=== PATIENT | female | born 1940 | race Caucasian/White ===

== ENCOUNTER 2017-10-18 18:08 | Inpatient (IN) | payer BC, MEDICARE ==
[2017-10-18] MEDS ORDERED: IPRATROPIUM 0.5 MG/2.5 ML NEBU INHALATION STA (19:13)
[2017-10-18] MEDS ORDERED: ALBUTEROL NEBULIZED 2.5 MG/3 ML INHALATION STA (19:13)
--- NOTE | 2017-10-18 19:20 | ED ---
General Adult HPI - General Chief complaint: Shortness of Breath Stated complaint: SHERRI Time Seen by Provider: 10/18/17 18:59 Source: patient, family, EMS, RN notes reviewed Mode of arrival: EMS Limitations: no limitations - History of Present Illness Initial comments: 77-year-old female presenting for one-week history generalized weakness. Patient is accompanied by her family members who states she has been somewhat confused and lethargic over the past week. She has not left her chair for about 1 week. Patient has past medical history of emphysema and hypertension. She also complains of some increasing dyspnea over the past week and mild cough. Denies chest pain. Denies fever or chills. Denies abdominal pain. Patient has no pain complaints. Denies headache. She has had increased swelling in her bilateral lower extremities for several months. - Related Data Home Medications Medication Instructions Recorded Confirmed Ergocalciferol (Vitamin D2) 50,000 unit PO Q7D 10/18/17 10/18/17 [Vitamin D2] Furosemide [Lasix] 40 mg PO DAILY 10/18/17 10/18/17 Metoprolol Succinate (ER) [Toprol 50 mg PO DAILY 10/18/17 10/18/17 Xl] Potassium Citrate [Potassium 10 meq PO DAILY 10/18/17 10/18/17 Citrate ER] Allergies Allergy/AdvReac Type Severity Reaction Status Date / Time amlodipine AdvReac Swelling Verified 10/18/17 19:12 acidic foods Allergy Anaphylaxis Uncoded 09/16/16 00:06 potato Allergy Anaphylaxis Uncoded 09/16/16 00:06 [place] Allergy Anaphylaxis Uncoded 09/16/16 11:23 Review of Systems ROS Statement: Those systems with pertinent positive or pertinent negative responses have been documented in the HPI. ROS Other: All systems not noted in ROS Statement are negative. Past Medical History Past Medical History: COPD, Hypertension, Pneumonia History of Any Multi-Drug Resistant Organisms: None Reported Past Surgical History: Joint Replacement, Orthopedic Surgery, Tonsillectomy Additional Past Surgical History / Comment(s): Bilateral hip surgeries, deviated septum. Past Psychological History: No Psychological Hx Reported Smoking Status: Never smoker Past Alcohol Use History: None Reported Past Drug Use History: None Reported - Past Family History Father Family Medical History: Cancer Mother Family Medical History: Congestive Heart Failure (CHF) General Exam Limitations: no limitations General appearance: alert, in no apparent distress Head exam: Present: atraumatic, normocephalic Eye exam: Present: normal appearance, PERRL ENT exam: Present: normal exam Neck exam: Present: normal inspection. Absent: tenderness, meningismus Respiratory exam: Present: decreased breath sounds, prolonged expiratory Cardiovascular Exam: Present: regular rate, normal rhythm GI/Abdominal exam: Present: soft. Absent: distended, tenderness Extremities exam: Present: pedal edema, calf tenderness, other (Bilateral significant edema with chronic venous stasis and multiple weeping wounds.) Neurological exam: Present: alert, oriented X3, CN II-XII intact. Absent: motor sensory deficit Psychiatric exam: Present: normal affect, normal mood Skin exam: Present: warm, dry, intact. Absent: cyanosis, diaphoretic Course Vital Signs 10/18/17 10/18/17 10/18/17 18:15 20:02 21:05 Temperature 98.5 F Pulse Rate 90 86 89 Respiratory 20 18 20 Rate Blood Pressure 199/109 195/99 185/110 O2 Sat by Pulse 90 L 96 Oximetry 10/18/17 21:45 Temperature Pulse Rate 90 Respiratory 16 Rate Blood Pressure 176/107 O2 Sat by Pulse 96 Oximetry EKG Findings - EKG Comments: EKG Findings:: EKG shows normal sinus rhythm, left atrial enlargement, right axis deviation ventricular rate 88, CA 188, QRS duration 84, QTC 447 Medical Decision Making - Medical Decision Making 69-year-old female presenting with confusion, shortness of breath, and worsening bilateral lower extremity swelling. On examination patient has significant lower extremity edema, she has decreased air entry bilaterally on pulmonary auscultation. Patient is hypoxic on room air requiring supplemental oxygenation. Chest x-ray is obtained, does show pulmonary vascular congestion and cardiomegaly consistent with congestive heart failure. Patient was initially somewhat confused, this improved with oxygenation, she refuses her head CT for further evaluation of confusion. Laboratory studies reveal normal white blood cell count, stable hemoglobin, creatinine 1.1, BUN elevated at 3000 470, troponin negative. Patient is given IV diuretics in the emergency department. She refuses aspirin. She will be admitted for further IV diuresis. Diagnosis: Congestive heart failure exacerbation with hypoxia - Lab Data Result diagrams: 10/18/17 19:30 10/18/17 19:30 Lab Results 12/31/17 12/31/17 12/31/17 Range/Units 19:30 19:30 19:30 WBC 8.4 (3.8-10.6) k/uL RBC 5.74 H (3.80-5.40) m/uL Hgb 14.2 (11.4-16.0) gm/dL Hct 51.8 H (34.0-46.0) % MCV 90.3 (80.0-100.0) fL MCH 24.8 L (25.0-35.0) pg MCHC 27.5 L (31.0-37.0) g/dL RDW 18.2 H (11.5-15.5) % Plt Count 196 (150-450) k/uL Neutrophils % 75 % Lymphocytes % 14 % Monocytes % 6 % Eosinophils % 2 % Basophils % 0 % Neutrophils # 6.3 (1.3-7.7) k/uL Lymphocytes # 1.2 (1.0-4.8) k/uL Monocytes # 0.5 (0-1.0) k/uL Eosinophils # 0.2 (0-0.7) k/uL Basophils # 0.0 (0-0.2) k/uL Hypochromasia Marked Anisocytosis Slight PT 10.7 (9.0-12.0) sec INR 1.1 (<1.2) APTT 25.0 (22.0-30.0) sec VBG pH (7.31-7.41) VBG pCO2 (37-51) mmHg VBG HCO3 (24-28) mmol/L Sodium 141 (137-145) mmol/L Potassium 5.1 (3.5-5.1) mmol/L Chloride 99 (98-107) mmol/L Carbon Dioxide 35 H (22-30) mmol/L Anion Gap 7 mmol/L BUN 41 H (7-17) mg/dL Creatinine 1.10 H (0.52-1.04) mg/dL Est GFR (MDRD) Af Amer 58 (>60 ml/min/1.73 sqM) Est GFR (MDRD) Non-Af 48 (>60 ml/min/1.73 sqM) Glucose 95 (74-99) mg/dL Plasma Lactic Acid [place] (0.7-2.0) mmol/L Calcium 9.6 (8.4-10.2) mg/dL Magnesium 2.2 (1.6-2.3) mg/dL Total Bilirubin 0.5 (0.2-1.3) mg/dL AST 30 (14-36) U/L ALT 45 (9-52) U/L Alkaline Phosphatase 102 (38-126) U/L Total Creatine Kinase (30-135) U/L CK-MB (CK-2) (0.0-2.4) ng/mL CK-MB (CK-2) Rel Index Troponin I (0.000-0.034) ng/mL NT-Pro-B Natriuret Pep pg/mL Total Protein 7.3 (6.3-8.2) g/dL Albumin 3.3 L (3.5-5.0) g/dL Urine Color Urine Appearance (Clear) Urine pH (5.0-8.0) Ur Specific [place] (1.001-1.035) Urine Protein (Negative) Urine Glucose (UA) (Negative) Urine Ketones (Negative) Urine Blood (Negative) Urine Nitrite (Negative) Urine Bilirubin (Negative) Urine Urobilinogen (<2.0) mg/dL Ur Leukocyte Esterase (Negative) Urine RBC (0-5) /hpf Urine WBC (0-5) /hpf Ur Squamous Epith Cells (0-4) /hpf Amorphous Sediment (None) /hpf Urine Bacteria (None) /hpf Hyaline Casts (0-2) /lpf Urine Mucus (None) /hpf 10/18/17 10/18/17 10/18/17 Range/Units 19:30 19:30 19:30 WBC (3.8-10.6) k/uL RBC (3.80-5.40) m/uL Hgb (11.4-16.0) gm/dL Hct (34.0-46.0) % MCV (80.0-100.0) fL MCH (25.0-35.0) pg MCHC (31.0-37.0) g/dL RDW (11.5-15.5) % Plt Count (150-450) k/uL Neutrophils % % Lymphocytes % % Monocytes % % Eosinophils % % Basophils % % Neutrophils # (1.3-7.7) k/uL Lymphocytes # (1.0-4.8) k/uL Monocytes # (0-1.0) k/uL Eosinophils # (0-0.7) k/uL Basophils # (0-0.2) k/uL Hypochromasia Anisocytosis PT (9.0-12.0) sec INR (<1.2) APTT (22.0-30.0) sec VBG pH (7.31-7.41) VBG pCO2 (37-51) mmHg VBG HCO3 (24-28) mmol/L Sodium (137-145) mmol/L Potassium (3.5-5.1) mmol/L Chloride (98-107) mmol/L Carbon Dioxide (22-30) mmol/L Anion Gap mmol/L BUN (7-17) mg/dL Creatinine (0.52-1.04) mg/dL Est GFR (MDRD) Af Amer (>60 ml/min/1.73 sqM) Est GFR (MDRD) Non-Af (>60 ml/min/1.73 sqM) Glucose (74-99) mg/dL Plasma Lactic Acid [place] 1.3 (0.7-2.0) mmol/L Calcium (8.4-10.2) mg/dL Magnesium (1.6-2.3) mg/dL Total Bilirubin (0.2-1.3) mg/dL AST (14-36) U/L ALT (9-52) U/L Alkaline Phosphatase (38-126) U/L Total Creatine Kinase 29 L (30-135) U/L CK-MB (CK-2) 1.4 (0.0-2.4) ng/mL CK-MB (CK-2) Rel Index 4.8 Troponin I <0.012 (0.000-0.034) ng/mL NT-Pro-B Natriuret Pep 3470 pg/mL Total Protein (6.3-8.2) g/dL Albumin (3.5-5.0) g/dL Urine Color Urine Appearance (Clear) Urine pH (5.0-8.0) Ur Specific [place] (1.001-1.035) Urine Protein (Negative) Urine Glucose (UA) (Negative) Urine Ketones (Negative) Urine Blood (Negative) Urine Nitrite (Negative) Urine Bilirubin (Negative) Urine Urobilinogen (<2.0) mg/dL Ur Leukocyte Esterase (Negative) Urine RBC (0-5) /hpf Urine WBC (0-5) /hpf Ur Squamous Epith Cells (0-4) /hpf Amorphous Sediment (None) /hpf Urine Bacteria (None) /hpf Hyaline Casts (0-2) /lpf Urine Mucus (None) /hpf 10/18/17 10/18/17 Range/Units 19:30 20:39 WBC (3.8-10.6) k/uL RBC (3.80-5.40) m/uL Hgb (11.4-16.0) gm/dL Hct (34.0-46.0) % MCV (80.0-100.0) fL MCH (25.0-35.0) pg MCHC (31.0-37.0) g/dL RDW (11.5-15.5) % Plt Count (150-450) k/uL Neutrophils % % Lymphocytes % % Monocytes % % Eosinophils % % Basophils % % Neutrophils # (1.3-7.7) k/uL Lymphocytes # (1.0-4.8) k/uL Monocytes # (0-1.0) k/uL Eosinophils # (0-0.7) k/uL Basophils # (0-0.2) k/uL Hypochromasia Anisocytosis PT (9.0-12.0) sec INR (<1.2) APTT (22.0-30.0) sec VBG pH 7.40 (7.31-7.41) VBG pCO2 50 (37-51) mmHg VBG HCO3 30 H (24-28) mmol/L Sodium (137-145) mmol/L Potassium (3.5-5.1) mmol/L Chloride (98-107) mmol/L Carbon Dioxide (22-30) mmol/L Anion Gap mmol/L BUN (7-17) mg/dL Creatinine (0.52-1.04) mg/dL Est GFR (MDRD) Af Amer (>60 ml/min/1.73 sqM) Est GFR (MDRD) Non-Af (>60 ml/min/1.73 sqM) Glucose (74-99) mg/dL Plasma Lactic Acid [place] (0.7-2.0) mmol/L Calcium (8.4-10.2) mg/dL Magnesium (1.6-2.3) mg/dL Total Bilirubin (0.2-1.3) mg/dL AST (14-36) U/L ALT (9-52) U/L Alkaline Phosphatase (38-126) U/L Total Creatine Kinase (30-135) U/L CK-MB (CK-2) (0.0-2.4) ng/mL CK-MB (CK-2) Rel Index Troponin I (0.000-0.034) ng/mL NT-Pro-B Natriuret Pep pg/mL Total Protein (6.3-8.2) g/dL Albumin (3.5-5.0) g/dL Urine Color Yellow Urine Appearance Cloudy H (Clear) Urine pH 5.0 (5.0-8.0) Ur Specific [place] 1.012 (1.001-1.035) Urine Protein 1+ H (Negative) Urine Glucose (UA) Negative (Negative) Urine Ketones Negative (Negative) Urine Blood Negative (Negative) Urine Nitrite Negative (Negative) Urine Bilirubin Negative (Negative) Urine Urobilinogen <2.0 (<2.0) mg/dL Ur Leukocyte Esterase Small H (Negative) Urine RBC 1 (0-5) /hpf Urine WBC 6 H (0-5) /hpf Ur Squamous Epith Cells 5 H (0-4) /hpf Amorphous Sediment Rare H (None) /hpf Urine Bacteria Many H (None) /hpf Hyaline Casts 21 H (0-2) /lpf Urine Mucus Rare H (None) /hpf Disposition Clinical Impression: Congestive heart failure Disposition: ADMITTED IP TO THIS HOSP Condition: Stable Referrals: Brant Vanessa MD [Primary Care Provider] - 1-2 days Decision to Admit Reason: Admit from EC Decision Date: 10/18/17 Decision Time: 21:20
[2017-10-18 19:57] LABS: VBG PH 7.4 (7.31-7.41)
[2017-10-18 20:03] LABS: Anisocytosis Slight; Basophils % (A) 0 %; Eosinophils # (A) 0.2 k/uL (0-0.7); Eosinophils % (A) 2 %; HCT 51.8 % (34.0-46.0); HGB 14.2 gm/dL (11.4-16.0); Hypochromasia Marked; Lymphocytes # (A) 1.2 k/uL (1.0-4.8); Lymphocytes % (A) 14 %; MCH 24.8 pg (25.0-35.0); MCHC 27.5 g/dL (31.0-37.0); MCV 90.3 fL (80.0-100.0); Mean Platelet Volume 8.2; Monocytes # (A) 0.5 k/uL (0-1.0); Monocytes % (A) 6 %; Neutrophils # (A) 6.3 k/uL (1.3-7.7); Neutrophils % (A) 75 %; Platelet Count 196 k/uL (150-450); RBC 5.74 m/uL (3.80-5.40); RDW 18.2 % (11.5-15.5); WBC 8.4 k/uL (3.8-10.6)
[2017-10-18 20:07] LABS: INR 1.1 (<1.2); Prothrombin Time 10.7 sec (9.0-12.0)
[2017-10-18] MEDS ORDERED: HYDROcodone/APAP 5-325MG 1 EACH TAB PO STA (20:08)
[2017-10-18] MEDS ORDERED: FUROSEMIDE 10 MG/ML 2 ML VIAL IV STA ×2 (20:08→22:10)
[2017-10-18 20:12] LABS: Albumin 3.3 g/dL (3.5-5.0); Calcium 9.6 mg/dL (8.4-10.2); Magnesium 2.2 mg/dL (1.6-2.3); Potassium 5.1 mmol/L (3.5-5.1); Total Bilirubin 0.5 mg/dL (0.2-1.3); Total Protein 7.3 g/dL (6.3-8.2)
[2017-10-18] MEDS: FUROSEMIDE 10 MG/ML 4 ML VIAL IV STA ×2 (20:14→22:18)
[2017-10-18 20:15] LABS: Creatine Kinase 29 U/L (30-135)
[2017-10-18 20:29] LABS: Creatine Kinase MB 1.4 ng/mL (0.0-2.4); Troponin I <0.012 ng/mL (0.000-0.034)
[2017-10-18 20:57] LABS: Amorphous Sediment,Urine Rare /hpf; Appearance,Urine Cloudy (Clear); Bacteria,Urine Many /hpf; Bilirubin,Urine Negative (Negative); Blood,Urine Negative (Negative); Color,Urine Yellow; Glucose,Urine (UA) Negative (Negative); Hyaline Casts,Urine 21 /lpf (0-2); Ketones,Urine Negative (Negative); Leukocyte Esterase,Urine Small (Negative); Mucus,Urine Rare /hpf; Nitrite,Urine Negative (Negative); Protein,Urine 1+ (Negative); RBC,Urine 1 /hpf (0-5); Specific Gravity,Urine 1.012 (1.001-1.035); Squamous Epithelial Cell,Urine 5 /hpf (0-4); Urobilinogen,Urine <2.0 mg/dL (<2.0); WBC,Urine 6 /hpf (0-5)
--- NOTE | 2017-10-18 21:27 | XR ---
EXAMINATION TYPE: XR chest 2V DATE OF EXAM: 10/18/2017 COMPARISON: 09/15/2016 HISTORY: Difficulty breathing TECHNIQUE: Frontal and lateral views of the chest are obtained. FINDINGS: Heart is enlarged. There is coarsening of interstitial markings. There is mild pulmonary c ongestion. I see no pulmonary consolidation. Thoracic aorta is atheromatous. IMPRESSION: Cardiomegaly and mild pulmonary congestion. There is probably some pulmonary fibrosis. H eart appears increased compared to old exam.
[2017-10-18] MEDS: ASPIRIN 325 MG TAB PO STA ×2 (21:47)
[2017-10-18] MEDS ORDERED: ONDANSETRON 4 MG/2 ML VIAL IVP PRN (21:53)
[2017-10-18] MEDS ORDERED: NALOXONE 0.4 MG/ML 1 ML VIAL IV PRN (21:53)
[2017-10-18] MEDS ORDERED: HYDROcodone/APAP 5-325MG 1 EACH TAB PO PRN (21:53)
[2017-10-18] MEDS ORDERED: ACETAMINOPHEN TAB 325 MG TAB PO PRN (21:53)
[2017-10-18] MEDS ORDERED: NITROGLYCERIN SL TABS 0.4 MG TAB SUBLINGUAL STA (22:10)
[2017-10-19 01:50] LABS: Creatine Kinase MB 1.9 ng/mL (0.0-2.4)
[2017-10-19 02:07] LABS: Troponin I 0.022 ng/mL (0.000-0.034)
[2017-10-19] MEDS: FUROSEMIDE 10 MG/ML 4 ML VIAL IV SCH ×2 (06:20→17:40)
[2017-10-19 07:31] LABS: Anisocytosis Slight; Basophils % (A) 0 %; Eosinophils # (A) 0.1 k/uL (0-0.7); Eosinophils % (A) 1 %; HCT 48.5 % (34.0-46.0); HGB 13.7 gm/dL (11.4-16.0); Hypochromasia Marked; Lymphocytes % (A) 12 %; MCH 25.3 pg (25.0-35.0); MCHC 28.2 g/dL (31.0-37.0); MCV 89.5 fL (80.0-100.0); Mean Platelet Volume 8.1; Monocytes # (A) 0.7 k/uL (0-1.0); Monocytes % (A) 8 %; Neutrophils # (A) 6.8 k/uL (1.3-7.7); Neutrophils % (A) 76 %; Platelet Count 197 k/uL (150-450); RBC 5.42 m/uL (3.80-5.40); RDW 16.2 % (11.5-15.5); WBC 8.9 k/uL (3.8-10.6)
[2017-10-19 08:00] LABS: ALT 43 U/L (9-52); AST 26 U/L (14-36); Albumin 2.9 g/dL (3.5-5.0); Alkaline Phosphatase 79 U/L (38-126); Anion Gap 3 mmol/L; Blood Urea Nitrogen 37 mg/dL (7-17); Calcium 9.6 mg/dL (8.4-10.2); Carbon Dioxide 35 mmol/L (22-30); Chloride 101 mmol/L (98-107); Glucose 101 mg/dL (74-99); Magnesium 1.9 mg/dL (1.6-2.3); Potassium 4.8 mmol/L (3.5-5.1); Sodium 139 mmol/L (137-145); Total Bilirubin 0.9 mg/dL (0.2-1.3); Total Protein 6.7 g/dL (6.3-8.2)
[2017-10-19 08:06] LABS: Creatine Kinase MB 1.8 ng/mL (0.0-2.4); Troponin I 0.013 ng/mL (0.000-0.034)
[2017-10-19] MEDS: METOPROLOL SUCCINATE (ER) 50 MG TAB.ER.24H PO SCH (09:52)
[2017-10-19] MEDS: ceFAZolin IN SWFI 2 GM/20 ML SYRINGE IVP SCH (15:44)
[2017-10-19] MEDS ORDERED: IPRATROPIUM-ALBUTEROL 3 ML NEB INHALATION PRN (18:33)
[2017-10-19] MEDS: HEPARIN SODIUM,PORCINE 5,000 UNIT/ML 1 ML VIAL SQ SCH (22:10)
[2017-10-20] MEDS: ceFAZolin IN SWFI 2 GM/20 ML SYRINGE IVP SCH ×4 (00:19→23:53)
[2017-10-20] MEDS: FUROSEMIDE 10 MG/ML 4 ML VIAL IV SCH ×2 (05:58→17:18)
[2017-10-20 06:32] LABS: Anisocytosis Slight; Basophils % (A) 0 %; Eosinophils # (A) 0.1 k/uL (0-0.7); Eosinophils % (A) 1 %; HCT 46.8 % (34.0-46.0); HGB 13.5 gm/dL (11.4-16.0); Hypochromasia Marked; Lymphocytes # (A) 1.2 k/uL (1.0-4.8); Lymphocytes % (A) 15 %; MCHC 28.9 g/dL (31.0-37.0); MCV 86.3 fL (80.0-100.0); Mean Platelet Volume 8.1; Monocytes # (A) 0.6 k/uL (0-1.0); Monocytes % (A) 8 %; Neutrophils # (A) 5.5 k/uL (1.3-7.7); Neutrophils % (A) 72 %; Platelet Count 200 k/uL (150-450); RBC 5.42 m/uL (3.80-5.40); RDW 17.6 % (11.5-15.5); WBC 7.6 k/uL (3.8-10.6)
[2017-10-20 06:48] LABS: Calcium 9.2 mg/dL (8.4-10.2); Potassium 4.5 mmol/L (3.5-5.1)
[2017-10-20] MEDS: POTASSIUM CITRATE 10 MEQ TABLET.ER PO SCH (08:29)
[2017-10-20] MEDS: METOPROLOL SUCCINATE (ER) 50 MG TAB.ER.24H PO SCH (08:29)
[2017-10-20] MEDS: HEPARIN SODIUM,PORCINE 5,000 UNIT/ML 1 ML VIAL SQ SCH ×2 (08:31→20:42)
--- NOTE | 2017-10-20 09:36 | HP ---
HISTORY AND PHYSICAL DATE OF SERVICE: 10/19/2017 CHIEF COMPLAINTS: Shortness of breath and weakness. HISTORY OF PRESENT ILLNESS: This 77-year-old woman with past medical history of COPD, hypertension, history pneumonia, history of DJD being followed by Dr. Vanessa in the outpatient setting, was complaining of shortness of breath. The patient was previously admitted with dehydration, renal failure, multiple medical issues, but currently the patient has generalized weakness and tiredness. The patient also short of breath. The patient apparently has not left the chair for about 1 week and the patient came to [facility] and admitted for further evaluation and treatment. Apparently the adult protective service also has been informed at this time because of the patient's surroundings and state of condition. There is no history of any fever, rigors. No history of headache, loss of consciousness, seizures. Patient mildly confused. PAST MEDICAL HISTORY: COPD, hypertension, degenerative joint disease. MEDICATIONS: Prior to admission include home medications are: 1. KCl 10 mg p.o. daily. 2. Toprol-XL 50 mg. 3. Lasix 40 mg daily. 4. Vitamin D2 50,000 Thursday. ALLERGIES: NORVASC, ACID FOODS, POTATO, TUR[place]. FAMILY HISTORY: History of cancer in the family. SOCIAL HISTORY: No history of smoking. No history of alcohol intake. REVIEW OF SYSTEMS: ENT: Diminished hearing or vision. CARDIOVASCULAR: As mentioned earlier. RESPIRATORY: As mentioned earlier. GI: No nausea. : No dysuria. NERVOUS SYSTEM: As mentioned earlier. ALLERGY/IMMUNOLOGY: As mentioned earlier. MUSCULOSKELETAL: As mentioned earlier. HEMATOLOGY: No history of anemia. ENDOCRINE: No history of diabetes or hypothyroidism. CONSTITUTIONAL: As mentioned earlier. DERMATOLOGY: Negative. RHEUMATOLOGY: Negative. PSYCHIATRY: As mentioned earlier. PHYSICAL EXAMINATION: Alert and oriented. Pulse 92, blood pressure 140/79, respiration 18, temperature 97.7, pulse ox 90% on 3 L. LEGS: Bilateral leg cellulitis present. Otherwise moves all four limbs. SKIN: No ulcer, rash, bleeding. LYMPHATICS: No lymph nodes palpable in the neck, axillae or groin. JOINTS: No active deforming arthropathy. LABS: At this time shows WBC 8.2, hemoglobin 15.2, creatinine 1.10. UA is cloudy. ASSESSMENT: 1. Acute bilateral cellulitis with sepsis, possibly. 2. Increased creatinine with chronic kidney disease. 3. History of chronic obstructive pulmonary disease. 4. Hypertension. 5. History pneumonia. 6. History of degenerative joint disease. 7. History of bilateral hip replacement. 8. History of renal failure. 9. NO CODE. RECOMMENDATIONS AND DISCUSSION: This 77-year-old woman who presented with multiple complex medical issues, will monitor the patient closely. Continue the current management and will initiate broad-spectrum IV antibiotics. I will recommend local dressing and as well as cultures also. Otherwise I would also recommend disease case manager rn and social work lecturer to evaluate the home situation. Resume the home medications. Guarded prognosis. Further recommendations to follow. Copy of dictation forwarded to Dr. Vanessa who is the primary physician. MMODL / IJN: [id number] /
--- NOTE | 2017-10-20 09:52 | P.CRDCN ---
History of Present Illness Consult date: 10/20/17 Requesting physician: Majninder Dc Consult reason: congestive heart failure Chief complaint: Weakness and tiredness History of present illness: Is a 77-year-old female with history of hypertension, COPD, recurrent pneumonia, no diabetes, no hyperlipidemia, nonsmoker. Patient presents to the hospital with symptoms of progressive weakness and tiredness, she states that he felt so tired she could not do anything at all. He does state that she has felt a little more short of breath than usual, she denies any chest discomfort or palpitations. Patient apparently lives alone, she has a neighbor that stops and once in a while to help her. EKG on arrival here shows a normal sinus rhythm with right axis deviation. Chest x-ray shows cardiomegaly and mild pulmonary congestion. Report shows probable pulmonary fibrosis. The pressure on arrival here 199/109, heart rate 90, temperature 98.5, 90% on room air. Blood pressure this morning 118/60 with a heart rate in the 90s, 90% on 3 L of oxygen. Laboratory data was reviewed, hemoglobin 13.5, platelet count 200. BNP level 3470. Sodium 140, potassium 4.5, BUN 37, creatinine 1.1. Troponin 0.012, 0.022, 0.013. At the time of my examination this morning, patient complains of feeling extremely tired. She is quite determined to be discharged home. Past Medical History Past Medical History: COPD, Hypertension, Pneumonia History of Any Multi-Drug Resistant Organisms: None Reported Past Surgical History: Joint Replacement, Orthopedic Surgery, Tonsillectomy Additional Past Surgical History / Comment(s): Bilateral hip surgeries, deviated septum. Past Anesthesia/Blood Transfusion Reactions: No Reported Reaction Past Psychological History: No Psychological Hx Reported Smoking Status: Never smoker Past Alcohol Use History: None Reported Past Drug Use History: None Reported - Past Family History Father Family Medical History: Cancer Mother History Unknown: Yes Family Medical History: Congestive Heart Failure (CHF) Medications and Allergies Home Medications Medication Instructions Recorded Confirmed Type Ergocalciferol (Vitamin D2) 50,000 unit PO Q7D 10/18/17 10/18/17 History [Vitamin D2] Furosemide [Lasix] 40 mg PO DAILY 10/18/17 10/18/17 History Metoprolol Succinate (ER) [Toprol 50 mg PO DAILY 10/18/17 10/18/17 History Xl] Potassium Citrate [Potassium 10 meq PO DAILY 10/18/17 10/18/17 History Citrate ER] Allergies Allergy/AdvReac Type Severity Reaction Status Date / Time amlodipine AdvReac Swelling Verified 10/18/17 19:12 acidic foods Allergy Anaphylaxis Uncoded 09/16/16 00:06 [place] Allergy Anaphylaxis Uncoded 09/16/16 00:06 [place] Allergy Anaphylaxis Uncoded 09/16/16 11:23 Physical Exam Vitals: Vital Signs Temp Pulse Resp BP Pulse Ox 10/20/17 08:31 97.1 F L 92 20 117/69 90 L 10/20/17 03:30 97.4 F L 90 20 126/72 96 10/20/17 00:10 97.3 F L 95 22 102/63 92 L 10/19/17 20:00 97.3 F L 91 18 118/78 95 10/19/17 18:58 95 10/19/17 15:50 97.7 F 92 18 140/79 90 L 10/19/17 11:18 97.3 F L 81 18 121/88 90 L Intake and Output 10/19/17 10/20/17 10/20/17 22:59 06:59 14:59 Intake Total 230 100 240 Balance 230 100 240 Intake: Oral 230 100 240 Other: Voiding Method Diaper Diaper Diaper # Voids 1 Weight 117.5 kg PHYSICAL EXAMINATION: 77-year-old female, unkempt. HEENT: Head is atraumatic, normocephalic. Pupils equal, round. Neck is supple. There is elevated jugular venous pressure. HEART EXAMINATION: Heart S1, S2 normal. No murmur or gallop heard. CHEST EXAMINATION: Lungs reveal diminished air entry bilaterally with scattered wheezing throughout. ABDOMEN: Soft, obese, nontender. Bowel sounds are heard. No organomegaly noted. EXTREMITIES:[ 1+ peripheral pulses with 1+ evidence of peripheral edema , evidence of bilateral cellulitis. NEUROLOGIC patient is awake, alert and oriented -3. . Results 10/20/17 05:59 10/20/17 05:59 CBC 10/20/17 Range/Units 05:59 WBC 7.6 (3.8-10.6) k/uL RBC 5.42 H (3.80-5.40) m/uL Hgb 13.5 (11.4-16.0) gm/dL Hct 46.8 H (34.0-46.0) % Plt Count 200 (150-450) k/uL Comprehensive Metabolic Panel 10/20/17 Range/Units 05:59 Sodium 140 (137-145) mmol/L Potassium 4.5 (3.5-5.1) mmol/L Chloride 99 (98-107) mmol/L Carbon Dioxide 34 H (22-30) mmol/L BUN 37 H (7-17) mg/dL Creatinine 1.10 H (0.52-1.04) mg/dL Glucose 99 (74-99) mg/dL Calcium 9.2 (8.4-10.2) mg/dL Current Medications Generic Name Dose Route Start Last Admin Trade Name Freq PRN Reason Stop Dose Admin Acetaminophen 650 mg 10/18/17 21:53 Tylenol Tab PO Q6HR PRN Mild Pain or Fever > 100.5 Hydrocodone Bitart/Acetaminophen 1 each 10/18/17 21:53 [place] 5-325 PO Q4HR PRN Moderate Pain Albuterol/Ipratropium 3 ml 10/19/17 18:33 Duoneb 0.5 Mg-3 Mg/3 Ml Soln INHALATION RT-QID PRN Shortness Of Breath Or Wheezing Cefazolin Sodium 2 gm 10/19/17 16:00 10/20/17 08:29 Kefzol IVP 2 gm Q8HR ANTHONY Administration Ergocalciferol 50,000 unit 10/25/17 12:00 Vitamin D2 PO Q7D ANTHONY Furosemide 40 mg 10/19/17 06:00 10/20/17 05:58 Lasix IV 40 mg Q12H ANTHONY Administration Heparin Sodium (Porcine) 5,000 unit 10/19/17 21:00 10/20/17 08:31 Heparin SQ 5,000 unit Q12HR ANTHONY Administration Metoprolol Succinate 50 mg 10/19/17 09:00 10/20/17 08:29 Toprol Xl PO 50 mg DAILY ANTHONY Administration Naloxone HCl 0.2 mg 10/18/17 21:53 Narcan IV Q2M PRN Opioid Reversal Ondansetron HCl 4 mg 10/18/17 21:53 Zofran IVP Q8HR PRN Nausea And Vomiting Potassium Citrate 10 meq 10/20/17 09:00 01/02/18 08:29 Urocit-K PO 10 meq DAILY ANTHONY Administration Silver Sulfadiazine 1 applic 10/19/17 15:15 10/20/17 08:29 Silvadene Cream TOPICAL 1 applic DAILY ANTHONY Administration Intake and Output 10/19/17 10/20/17 10/20/17 22:59 06:59 14:59 Intake Total 230 100 240 Balance 230 100 240 Intake: Oral 230 100 240 Other: Voiding Method Diaper Diaper Diaper # Voids 1 Weight 117.5 kg 10/20/17 05:59 10/20/17 05:59 EKG Interpretations (text) EKG shows a normal sinus rhythm with no acute changes. Assessment and Plan Plan: Assessment and plan #1 congestive heart failure, LV function unknown at this time. Continue IV Lasix. #2 uncontrolled hypertension #3 COPD #4 bilateral cellulitis Plan We will obtain an echocardiogram with Doppler study, continue current dose of IV Lasix. Optimize blood pressure control. Add Norvasc 5 mg daily. Also request a social work consultation, it appears that the patient is very unkempt , has not bathed recently, and lives alone. Further recommendations we based on these findings and patient's clinical course. DNP note has been reviewed, I agree with a documented findings and plan of care. Patient was seen and examined.
[2017-10-20] MEDS ORDERED: amLODIPine 5 MG TAB PO SCH (10:00)
[2017-10-20] MEDS: LISINOPRIL-HCTZ 10-12.5 MG 1 EACH TAB PO SCH (11:20)
--- NOTE | 2017-10-20 13:13 | ECHOF ---
Referral Reason:chf MEASUREMENTS -------- HEIGHT: 167.6 cm WEIGHT: 117.5 kg BP: 117/69 RVIDd: 3.0 cm (< 3.3) IVSd: 1.2 cm (0.6 - 1.1) LVIDd: 3.3 cm (3.9 - 5.3) LVPWd: 1.3 cm (0.6 - 1.1) IVSs: 1.7 cm LVIDs: 2.5 cm LVPWs: 1.6 cm LA Diam: 3.4 cm (2.7 - 3.8) LAESV Index (A-L): 18.06 ml/m Ao Diam: 3.2 cm (2.0 - 3.7) AV Cusp: 1.4 cm (1.5 - 2.6) MV EXCURSION: 9.588 mm (> 18.000) MV EF SLOPE: 28 mm/s (70 - 150) EPSS: 0.6 cm MV E Juan Daniel: 0.61 m/s MV DecT: 228 ms MV A Juan Daniel: 0.89 m/s MV E/A Ratio: 0.68 RAP: 15.00 mmHg RVSP: 77.00 mmHg FINDINGS -------- Sinus rhythm. This was a technically adequate study. The left ventricular size is normal. There is mild concentric left ventricular hypertrophy. Overa ll left ventricular systolic function is normal with, an EF between 55 - 60 %. The right ventricle is normal in size. The right ventricular systolic function is moderately impair ed. The right ventricular septal wall is flattened in diastole and systole which is consistent wit h right ventricular volume and pressure overload. Normal LA size by volume 22+/-6 ml/m2. The right atrium is normal in size. There is mild aortic valve sclerosis. The mitral valve is normal. Moderate tricuspid regurgitation present. There is severe pulmonary hypertension. The right ventr icular systolic pressure, as measured by Doppler, is 77.00mmHg. There is no pulmonic regurgitation present. The aortic root size is normal. The inferior vena cava is dilated with no significant inspiratory collapse which is consistent estima panfilo right atrial pressure of >20 mmHg. There is no pericardial effusion. CONCLUSIONS -------- 1. Sinus rhythm. 2. This was a technically adequate study. 3. The left ventricular size is normal. 4. There is mild concentric left ventricular hypertrophy. 5. Overall left ventricular systolic function is normal with, an EF between 55 - 60 %. 6. The right ventricle is normal in size. 7. The right ventricular systolic function is moderately impaired. 8. The right ventricular septal wall is flattened in diastole and systole which is consistent with r ight ventricular volume and pressure overload. 9. Normal LA size by volume 22+/-6 ml/m2. 10. The right atrium is normal in size. 11. There is mild aortic valve sclerosis. 12. The mitral valve is normal. 13. Moderate tricuspid regurgitation present. 14. There is severe pulmonary hypertension. 15. The right ventricular systolic pressure, as measured by Doppler, is 77.00mmHg. 16. There is no pulmonic regurgitation present. 17. The aortic root size is normal. 18. The inferior vena cava is dilated with no significant inspiratory collapse which is consistent es timated right atrial pressure of >20 mmHg. 19. There is no pericardial effusion. RESILIENT TILE INSTALLER: Prachi Plasencia RDCS
--- NOTE | 2017-10-20 21:55 | PN ---
PROGRESS NOTE DATE OF SERVICE: 10/20/2017 INTERVAL HISTORY: This 77-year-old woman who was admitted with shortness of breath and weakness and acute bilateral leg cellulitis with sepsis. The patient is being closely monitored. No chest pain. No palpitations. No fever. The patient refused some of the. EXAM: Alert and oriented x3. Pulse is 69, blood pressure 119/70, respiration 18, temperature 98.9, pulse ox 97% on 3 L. HEENT: Conjunctivae normal. Neck: No jugular venous distention. CARDIOVASCULAR : S1, S2. RESPIRATORY: Breath sounds diminished in the bases. Scattered rhonchi and crackles. Abdomen is soft, nontender. No mass palpable. Legs: No edema. No swelling. Central nervous system: No focal deficits. LAB STUDIES: WBC 7.2, hemoglobin 15.5, creatinine is 1.10. Albumin is 2.9. ASSESSMENT: 1. Acute bilateral leg cellulitis with sepsis, possibly. 2. Increased creatinine with chronic kidney disease. 3. History of chronic obstructive pulmonary disease. 4. Hypertension. 5. History of pneumonia. 6. History of degenerative joint disease. 7. History of bilateral hip replacement. 8. History of renal failure. 9. History of noncompliance. RECOMMENDATIONS AND DISCUSSION: Recommend to continue current management and treatment. Otherwise at this time I would recommend the patient follow up with Cardiology. Continue the diuretics and I would also recommend PT/OT evaluation and possible evaluation for ECF rehab also. Continue with IV diuretics and further recommendations to follow. See orders for details. MMODL / IJN: [id number] / MTDD
--- NOTE | 2017-10-21 04:36 | CONS ---
CONSULTATION DATE OF SERVICE: 10/20/2017 REASON FOR CONSULTATION: Bilateral lower extremity wound and cellulitis. HISTORY OF PRESENT ILLNESS: The patient is a 77-year-old female presenting to the ER at [facility] on October 18, 2017 with the chief complaints of increasing shortness of breath and swelling in her lower extremity. Her symptoms have been going on for more than a week with increasing shortness of breath or swelling of the legs. The patient did have a blister formation that had ruptured leading to some superficial ulceration. The patient also has redness around those superficial wounds. The patient been complaining of pain in the leg for the last few days, which is sharp 3 to 4 out of 10, and no radiation. With these symptoms, the patient presented to the hospital. The patient has been evaluated by the ER physician. She has been diagnosed with congestive heart failure with lower extremity wound cellulitis. ID was consulted for further recommendation regarding antibiotic therapy. Currently being treated with Silvadene cream and cefazolin. REVIEW OF SYSTEMS: CONSTITUTIONAL: Positive for weakness, no fever. EYES: No complaint. ENT: No complaint. RESPIRATORY: As per HPI. CARDIOVASCULAR: As per HPI. GENITOURINARY: No complaint. GASTROINTESTINAL: No complaint. MUSCULOSKELETAL: No complaint. INTEGUMENTARY: As per HPI. PSYCHOLOGICAL: No complaint. ENDOCRINE: No complaint. NEUROLOGICAL: No complaint. PAST MEDICAL HISTORY: Significant for hypertension, COPD, pneumonia. PAST SURGICAL HISTORY: Tonsillectomy, bilateral hip surgery, surgery for deviated nasal septum. SOCIAL HISTORY: Denies smoking, drinking, or drug use. FAMILY HISTORY: Father history of cancer. Mother history of congestive heart failure. ALLERGIES: Allergies to AMLODIPINE. MEDICATIONS: Medications include the patient is currently on Tylenol, [place], DuoNeb, cefazolin 2 grams q.8. She is on vitamin D2, Lasix, Zestoretic, heparin, Toprol XL, Narcan, Zofran. PHYSICAL EXAMINATION: On examination, her blood pressure is 145/95 with a pulse of 81, temperature is 97.3. She is 94% on 3 L nasal cannula. General description is an elderly female lying in bed in no distress. No tachypnea or accessory muscle of respiration use. HEENT examination shows no pallor or scleral icterus. Oral mucous membrane is dry. No pharyngeal erythema or thrush NECK: Trachea central, no thyromegaly. LUNGS: Unlabored breathing with decreased breath sounds at the bases. No wheeze. HEART: S1, S2. Regular rate and rhythm. ABDOMEN: Soft, no tenderness. No organomegaly Bilateral lower extremities 2+ edema of feet. She did have some superficial ulceration on the left posterior leg and right anterior leg with surrounding cellulitis. No foul smelling drainage. NEUROLOGICAL: Patient is awake, alert, oriented x3. Mood and affect normal. LABS: Hemoglobin is 13.5, white count 7.6 with a BUN of 37 creatinine 1.10. Wound culture is currently pending. Blood culture so far negative. DIAGNOSTIC IMPRESSION AND PLAN: Patient with bilateral lower extremity wound, likely a venostasis ulcer with secondary cellulitis. The likely organism to cover will be the gram-positive skin brad and less likely gram-negative infection. PLAN: 1. Cefazolin 2 grams q.8 hours. 2. We will discontinue Silvadene and will apply Aquacel Silver dressing to the wound followed by Wei wrap from just above the toe to below the knee to be changed daily. 3. We will follow up on clinical condition as well as cultures to further adjust her medication if needed. Thank you for this consultation. Will follow the patient along with you. MMODL / IJN: [id number] / MT
[2017-10-21] MEDS: FUROSEMIDE 10 MG/ML 4 ML VIAL IV SCH ×2 (05:44→17:24)
[2017-10-21 06:31] LABS: Anion Gap 6 mmol/L; Blood Urea Nitrogen 36 mg/dL (7-17); Carbon Dioxide 36 mmol/L (22-30); Chloride 97 mmol/L (98-107); Glucose 86 mg/dL (74-99); Sodium 139 mmol/L (137-145)
[2017-10-21 06:35] LABS: Anisocytosis Slight; Basophils % (A) 0 %; Eosinophils # (A) 0.1 k/uL (0-0.7); Eosinophils % (A) 1 %; HCT 47.6 % (34.0-46.0); HGB 13.8 gm/dL (11.4-16.0); Hypochromasia Marked; Lymphocytes # (A) 1.2 k/uL (1.0-4.8); Lymphocytes % (A) 17 %; MCHC 29.1 g/dL (31.0-37.0); MCV 89.4 fL (80.0-100.0); Mean Platelet Volume 7.8; Monocytes # (A) 0.6 k/uL (0-1.0); Monocytes % (A) 8 %; Neutrophils # (A) 5.1 k/uL (1.3-7.7); Neutrophils % (A) 71 %; Platelet Count 171 k/uL (150-450); Potassium 4.2 mmol/L (3.5-5.1); RBC 5.32 m/uL (3.80-5.40); RDW 16.1 % (11.5-15.5); WBC 7.1 k/uL (3.8-10.6)
[2017-10-21 08:22] LABS: Poikilocytosis (M) Present
[2017-10-21] MEDS: ceFAZolin IN SWFI 2 GM/20 ML SYRINGE IVP SCH ×3 (09:18→23:00)
[2017-10-21] MEDS: HEPARIN SODIUM,PORCINE 5,000 UNIT/ML 1 ML VIAL SQ SCH ×2 (09:18→23:01)
[2017-10-21] MEDS: POTASSIUM CITRATE 10 MEQ TABLET.ER PO SCH (09:19)
[2017-10-21] MEDS: METOPROLOL SUCCINATE (ER) 50 MG TAB.ER.24H PO SCH (09:19)
[2017-10-21] MEDS: LISINOPRIL-HCTZ 10-12.5 MG 1 EACH TAB PO SCH (09:19)
--- NOTE | 2017-10-21 11:50 | P.PN ---
Subjective Progress Note Date: 10/21/17 This is a 77-year-old female with history of hypertension, COPD, recurrent pneumonia, no diabetes, no hyperlipidemia, nonsmoker. Patient presents to the hospital with symptoms of progressive weakness and tiredness, she states that she felt so tired she could not do anything at all. She does state that she has felt a little more short of breath than usual, she denies any chest discomfort or palpitations. Patient apparently lives alone, she has a neighbor that stops and once in a while to help her. EKG on arrival here shows a normal sinus rhythm with right axis deviation. Chest x-ray shows cardiomegaly and mild pulmonary congestion. Report shows probable pulmonary fibrosis. Blood pressure on arrival here 199/109, heart rate 90, temperature 98.5, 90% on room air. Blood pressure this morning 118/60 with a heart rate in the 90s, 90% on 3 L of oxygen. Laboratory data was reviewed, hemoglobin 13.5, platelet count 200. BNP level 3470. Sodium 140, potassium 4.5, BUN 37, creatinine 1.1. Troponin 0.012, 0.022, 0.013. At the time of my examination this morning, patient complains of feeling extremely tired. She is quite determined to be discharged home. 10/21/2017 A shunt was seen and examined this morning, quite sleepy. Weight is down 1 kg from yesterday. Potassium 4.2, BUN 36, creatinine 1.0. Echocardiogram with Doppler study was performed which revealed an ejection fraction of 55-60%. Moderate tricuspid regurg noted, severe pulmonary hypertension. Objective - Vital Signs Vital signs: Vital Signs Temp 97.0 F L 10/21/17 08:00 Pulse 81 10/21/17 08:00 Resp 16 10/21/17 08:00 BP 123/73 10/21/17 08:00 Pulse Ox 96 10/21/17 08:00 Intake & Output 10/20/17 10/21/17 10/21/17 18:59 06:59 18:59 Intake Total 596 200 240 Balance 596 200 240 Weight 116.5 kg Intake: Oral 596 200 240 Other: Voiding Method Diaper Diaper Diaper # Voids 2 - Exam PHYSICAL EXAMINATION: 77-year-old female, unkempt. HEENT: Head is atraumatic, normocephalic. Pupils equal, round. Neck is supple. There is elevated jugular venous pressure. HEART EXAMINATION: Heart S1, S2 normal. No murmur or gallop heard. CHEST EXAMINATION: Lungs reveal diminished air entry bilaterally with scattered wheezing throughout. ABDOMEN: Soft, obese, nontender. Bowel sounds are heard. No organomegaly noted. EXTREMITIES:[ 1+ peripheral pulses with 1+ evidence of peripheral edema , evidence of bilateral cellulitis. NEUROLOGIC patient is awake, alert and oriented -3. - Labs CBC & Chem 7: 10/21/17 05:37 10/21/17 05:37 Labs: Abnormal Lab Results - Last 24 Hours (Table) 10/21/17 10/21/17 Range/Units 05:37 05:37 Hct 47.6 H (34.0-46.0) % MCHC 29.1 L (31.0-37.0) g/dL RDW 16.1 H (11.5-15.5) % Chloride 97 L (98-107) mmol/L Carbon Dioxide 36 H (22-30) mmol/L BUN 36 H (7-17) mg/dL Microbiology - Last 24 Hours (Table) 10/18/17 19:30 Blood Culture - Preliminary Blood No Growth after 48 hours 10/19/17 15:46 Gram Stain - Preliminary Leg - Right Wound Culture - Preliminary Gram Neg Bacilli Gram Neg Bacilli#2 Group D Enterococcus Assessment and Plan Plan: Assessment and plan #1 congestive heart failure, diastolic acute on chronic .Continue IV Lasix. #2 uncontrolled hypertension, blood pressure 122/70 this morning #3 COPD #4 bilateral cellulitis Plan Echocardiogram with Doppler study was performed which revealed an ejection fraction of 55-60%. The right ventricular septal wall was flattened in diastole and systole consistent with right ventricular volume overload, severe pulmonary hypertension and moderate tricuspid regurg. We will continue current dose of IV Lasix, continue to monitor intake and output along with daily weights and daily lytes BUN and creatinine. DNP note has been reviewed, I agree with a documented findings and plan of care. Patient was seen and examined.
--- NOTE | 2017-10-21 17:25 | P.PN ---
Subjective Progress Note Date: 10/21/17 Progress note being dictated for Dr. Berger. Interval history: This a 77-year-old female admitted with shortness of breath, sepsis, generalized weakness, bilateral leg cellulitis, and multiple other medical issues. Echo reporting normal LV function, EF 55-60%, moderate tricuspid regurgitation, severe pulmonary hypertension. Diuresing on Lasix, I & O inaccurate. Renal function slowly improving. Maintained on cefta zolin, wound care with Aquacel silver as per infectious disease. Wound culture pending. Preliminary blood cultures negative. Objective - Vital Signs Vital signs: Vital Signs Temp 97.0 F L 10/21/17 12:00 Pulse 78 10/21/17 12:00 Resp 18 10/21/17 16:00 BP 145/95 10/21/17 12:00 Pulse Ox 93 L 10/21/17 13:47 Intake & Output 10/20/17 10/21/17 10/21/17 18:59 06:59 18:59 Intake Total 596 200 360 Balance 596 200 360 Weight 116.5 kg 116.5 kg Intake: Oral 596 200 360 Other: Voiding Method Diaper Diaper Diaper # Voids 2 - Exam PHYSICAL EXAM: VITAL SIGNS: [As above] GENERAL: Sitting up in bed, no acute distress HEENT: Conjunctivae normal. eyes normal. NECK: No JVD. No thyroid enlargement. No LNs CARDIOVASCULAR: S1, S2 muffled. no murmur RESPIRATION: Breath sounds diminished in the bases. Scattered rhonchi, no crackles. Scattered expiratory wheezing ABDOMEN: Soft, nontender . No guarding. no masses palpable. Bowel sounds heard. LEGS: Bilateral lower extremity Wei wraps/dressings clean dry and intact PSYCHIATRY: Alert and oriented -3, mood and affect normal. NERVOUS SYSTEM: Cranial N 2-12 grossly normal. Moves all 4 limbs. Diffuse weakness No focal deficits. No sensory deficit. Skin: no ulcer no rash Joints: No active swelling. No inflammation. Lymphatic system. No LN neck axilla or groin. - Labs CBC & Chem 7: 10/21/17 05:37 10/21/17 05:37 Labs: Abnormal Lab Results - Last 24 Hours (Table) 10/21/17 10/21/17 Range/Units 05:37 05:37 Hct 47.6 H (34.0-46.0) % MCHC 29.1 L (31.0-37.0) g/dL RDW 16.1 H (11.5-15.5) % Chloride 97 L (98-107) mmol/L Carbon Dioxide 36 H (22-30) mmol/L BUN 36 H (7-17) mg/dL Microbiology - Last 24 Hours (Table) 10/18/17 19:30 Blood Culture - Preliminary Blood No Growth after 48 hours 10/19/17 15:46 Gram Stain - Preliminary Leg - Right Wound Culture - Preliminary Gram Neg Bacilli Gram Neg Bacilli#2 Group D Enterococcus Assessment and Plan Assessment: 1. Acute bilateral leg cellulitis with possible sepsis 2. Acute on chronic kidney disease 3. COPD, history of 4. Hypertension 5. Severe pulmonary hypertension 6. Moderate tricuspid regurgitation Plan: Continue on current medication regime ,monitoring and symptomatic treatment. Diuretics as per cardiology. Strict I&O's.Close monitoring of renal function with repeat labs ordered for a.m. Evaluated by PT/OT and subacute rehab recommended at discharge. Discharge planning in progress. The impression and plan of care has been dictated as directed. : I performed a history and examination of this patient, discussed the same with the dictator. I agree with the dictator's note ,documented as a scribe. Any additional findings or plans will be noted.
--- NOTE | 2017-10-21 22:56 | PN ---
PROGRESS NOTE DATE OF SERVICE: 10/21/2017. REASON FOR FOLLOWUP: Bilateral lower extremity venous stasis and cellulitis The patient is afebrile. He has been breathing slightly comfortably, No nausea. No vomiting. The patient has had no abdominal pain or any diarrhea. EXAM: Blood pressure 132/87 with a pulse of 81, temperature of 100.2, 98% on 3L nasal cannula. General description is an elderly female lying in bed in no distress. RESPIRATORY SYSTEM: Unlabored breathing. Clear to auscultation anteriorly. HEART: S1, S2. Regular rate and rhythm. ABDOMEN: Soft. No tenderness. EXTREMITIES: The legs swelling persist redness has slightly decreased wound with no slough tissue or any foul-smelling drainage. LAB: Hemoglobin is 13.8, white count 7.1 with a BUN of 36, creatinine 1.0. DIAGNOSTIC IMPRESSION AND PLAN: Patient with bilateral lower extremity venous stasis ulcers and cellulitis. Culture did grow multiple pathogens. Currently on cefazolin and Cipro. That will continued , local wound care with Aquacel silver dressing and Wei wrap. Continue supportive care. MMODL / IJN: [id number] / MT
[2017-10-22] MEDS: CIPROFLOXACIN HCL 500 MG TAB PO SCH ×3 (01:11→20:22)
[2017-10-22 01:31] LABS: Glucose,Whole Blood 95 mg/dL (75-99)
[2017-10-22] MEDS: FUROSEMIDE 10 MG/ML 4 ML VIAL IV SCH ×2 (06:06→17:34)
[2017-10-22] MEDS: HEPARIN SODIUM,PORCINE 5,000 UNIT/ML 1 ML VIAL SQ SCH ×2 (08:09→20:29)
[2017-10-22] MEDS: METOPROLOL SUCCINATE (ER) 50 MG TAB.ER.24H PO SCH (08:10)
[2017-10-22] MEDS: LISINOPRIL-HCTZ 10-12.5 MG 1 EACH TAB PO SCH (08:10)
[2017-10-22] MEDS: POTASSIUM CITRATE 10 MEQ TABLET.ER PO SCH (08:10)
[2017-10-22 09:06] LABS: Anisocytosis Slight; Basophils % (A) 0 %; Eosinophils # (A) 0.1 k/uL (0-0.7); Eosinophils % (A) 1 %; HCT 48.6 % (34.0-46.0); HGB 13.6 gm/dL (11.4-16.0); Hypochromasia Marked; Lymphocytes # (A) 0.8 k/uL (1.0-4.8); Lymphocytes % (A) 11 %; MCH 25.3 pg (25.0-35.0); MCV 90.2 fL (80.0-100.0); Mean Platelet Volume 7.3; Monocytes # (A) 0.5 k/uL (0-1.0); Monocytes % (A) 6 %; Neutrophils # (A) 6.4 k/uL (1.3-7.7); Neutrophils % (A) 80 %; Platelet Count 174 k/uL (150-450); RBC 5.38 m/uL (3.80-5.40); RDW 16.1 % (11.5-15.5)
[2017-10-22 09:31] LABS: Anion Gap 4 mmol/L; Blood Urea Nitrogen 40 mg/dL (7-17); Calcium 9.1 mg/dL (8.4-10.2); Carbon Dioxide 38 mmol/L (22-30); Chloride 97 mmol/L (98-107); Glucose 154 mg/dL (74-99); Potassium 3.9 mmol/L (3.5-5.1); Sodium 139 mmol/L (137-145)
[2017-10-22] MEDS: ceFAZolin IN SWFI 2 GM/20 ML SYRINGE IVP SCH ×3 (09:56→23:21)
--- NOTE | 2017-10-22 14:57 | P.PN ---
Subjective Progress Note Date: 10/22/17 Mrs. Cruz is a pleasant 77-year-old female with past medical history of hypertension, COPD, recurrent pneumonia. We have been seeing her in consultation for progressive weakness and fatigue. She has been receiving IV Lasix 40 mg twice a day for pulmonary congestion and lower extremity edema. Upon examination today she is seen sleeping in bed. She is rather sleepy and has a hard time keeping her eyes open. Has questions she does not communicate she just groans. Echocardiogram performed reveals preserved LV function with ejection fraction 55-60%. She is also being followed by infectious disease for bilateral lower extremity cellulitis. She apparently has been refusing oxygen and being argumentative with staff. When she took the oxygen off she desatted on 70% on room air. At the time of exam she is resting comfortably in no acute respiratory distress with oxygen via nasal cannula 3 L with pO2 92%. BUN40, Cr 0.92, potassium 3.9, carbon dioxide 38. Objective - Vital Signs Vital signs: Vital Signs Temp 96.7 F L 10/22/17 07:00 Pulse 86 10/22/17 07:00 Resp 20 10/22/17 08:08 BP 134/82 10/22/17 07:00 Pulse Ox 92 L 10/22/17 08:08 Intake & Output 10/21/17 10/22/17 10/22/17 18:59 06:59 18:59 Intake Total 360 300 360 Output Total 3 Balance 360 297 360 Weight 116.5 kg Intake: Oral 360 300 360 Output: Urine/Stool Mix 3 Other: Voiding Method Diaper Diaper Diaper # Voids 1 1 # Bowel Movements 0 - Exam Blood pressure 134/82 with a heart rate of 86. No signs of arrhythmia on telemetry. GENERAL: In no acute distress. NECK: Supple without JVD or thyromegaly. LUNGS: Breath sounds clear to auscultation bilaterally. Respiration equal and unlabored. No wheezes, rales or rhonchi. Diminished air entry HEART: Regular rate and rhythm without murmurs, rubs or gallops. S1 and S2 heard. EXTREMITIES: Bilateral lower extremity 1+ pitting edema. Evidence of bilateral lower extremity cellulitis. Wei wrap some bilateral lower extremities. - Labs CBC & Chem 7: 10/22/17 08:44 10/22/17 08:44 Labs: Abnormal Lab Results - Last 24 Hours (Table) 10/22/17 10/22/17 Range/Units 08:44 08:44 Hct 48.6 H (34.0-46.0) % MCHC 28.0 L (31.0-37.0) g/dL RDW 16.1 H (11.5-15.5) % Lymphocytes # 0.8 L (1.0-4.8) k/uL Chloride 97 L (98-107) mmol/L Carbon Dioxide 38 H (22-30) mmol/L BUN 40 H (7-17) mg/dL Glucose 154 H (74-99) mg/dL Microbiology - Last 24 Hours (Table) 10/19/17 15:46 Gram Stain - Final Leg - Right Wound Culture - Final Morganella morganii Escherichia coli Enterococcus faecalis 10/18/17 19:30 Blood Culture - Preliminary Blood No Growth after 72 hours 10/19/17 15:46 Anaerobic Culture - Preliminary Leg - Right Assessment and Plan Assessment: ASSESSMENT 1. Acute on chronic diastolic heart failure 2. Hypertension 3. COPD 4. Bilateral lower extremity cellulitis 5. Noncompliance PLAN Continue to obtain daily weights with strict intake and output to assess diuresis. Continue with IV Lasix 40 mg IV twice a day. Further recommendations will be based upon clinical course. Nurse Practitioner note has been reviewed, I agree with a documented findings and plan of care. Patient was seen and examined.
--- NOTE | 2017-10-22 15:33 | PN ---
PROGRESS NOTE DATE OF SERVICE: 10/22/2017 REASON FOR FOLLOW UP: Bilateral extremities cellulitis. INTERVAL HISTORY: The patient is afebrile. She is relatively more awake and alert today. She is breathing comfortably. Denies significant chest pain, occasional cough. Denies any pain in the leg area. No nausea, no vomiting, no diarrhea. PHYSICAL EXAMINATION: Blood pressure is 134/70 with a pulse of 78, temperature of 96.8. She is 94% on 3 L. general description is an elderly female, lying in bed in no distress. RESPIRATORY SYSTEM: Unlabored breathing, clear to auscultation anteriorly. HEART: S1, S2. Regular rate and rhythm. ABDOMEN: Soft, no tenderness. LABS: Hemoglobin 13.8, white count 8.0, BUN of 14, creatinine 0.92. Leg wound with E coli Morganella and Enterococcus faecalis. DIAGNOSTIC IMPRESSION AND PLAN: Patient with bilateral venostasis ulcer with diffuse swelling and redness likely a streptococcal disease. Culture did grow multiple pathogen, which could be a more colonizer rather than true infection. Currently covered with cefazolin and Cipro. Local wound care with Aquacel Silver dressing and Wei wrap. Will reevaluate the wound tomorrow. Continue supportive care. MMODL / IJN: [id number] / MT
--- NOTE | 2017-10-22 18:04 | P.PN ---
Progress Note - Text Progress Note Date: 10/22/17 DATE OF SERVICE: 10/22/2017 PRESENTING COMPLAINT: Short of breath and weakness HISTORY OF PRESENT ILLNESS: 77-year-old female admitted with generalized weakness and tiredness as well as shortness of breath. INTERVAL HISTORY: 10/22/2017: Patient lying in bed appears comfortable. Breathing is improved. States she still feels fairly tired and weak. Tolerating her diet eating about 50% of her meals. Last bowel movement prior to admission. REVIEW OF SYSTEMS: Done for constitutional ,cardiovascular, GI, pulmonary with relevant findings as above. CURRENT MEDICATIONS Acetaminophen, [place], DuoNeb, Dulcolax, capsule, Cipro, Lasix, Toprol-XL 50 g by mouth daily, senna, PHYSICAL EXAM VITAL SIGNS: Temperature 96.7, pulse 86, respiratory rate 22, blood pressure 134/82, oxygen saturation 94% on 3 L. GENERAL APPEARANCE: Sitting up in bed, not in distress. EYES: Pupils equal. Conjunctiva normal. NECK: JVD not raised. Mass not palpable. RESPIRATORY: Respiratory effort increased. Lungs diminished to auscultation. CARDIOVASCULAR: First and second sounds normal. No edema. ABDOMEN: Soft. Liver and spleen not palpable. No tenderness. No mass palpable. PSYCHIATRY: Alert and oriented x3. Mood and affect normal. INTEGUMENT: Bilateral lower extremities red warm erythematic tender to palpation INVESTIGATIONS: LABS: Hemoglobin 13.6, BUN 40, creatinine 0.92. Leg wound cultures positive for E. coli, Morganella, and enterococcus faecalis ASSESSMENT: -Acute on chronic diastolic congestive heart failure, in a patient with an EF of 55-60%. 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 -Essential hypertension. -Primary osteoarthritis of multiple joints bilateral. PLAN: Continue daily weights strict I&O, IV Lasix 40 mg IV twice daily, continue IV antibiotic therapy with Cefazolin and Cipro, infectious disease feels might be more of a colonization than a true infection. local wound care with Aquacel Silver and Wei wraps per infectious disease. Plan of care discussed with the patient the bedside she is in agreement we'll follow closely. [employer] statement: Patient was seen and examined by nurse practitioner Cori Landry and all elements of the case discussed with attending Dr. Dc
[2017-10-22] MEDS: SENNOSIDES 8.6 MG TAB PO SCH (20:22)
--- NOTE | 2017-10-22 20:45 | PN ---
PROGRESS NOTE DATE OF SERVICE: 10/22/2017. ATTENDING NOTE: The patient seen and examined by me. I discussed with nurse practitioner, Frantz. The patient is slightly still short of breath, getting IV Lasix. Did tolerate a meal. Had a bowel movement. Has pretty much in bed at baseline, uses a walker. PHYSICAL EXAMINATION: Temperature 96.7, pulse 86, respiration 22, blood pressure 134/82, pulse ox 94% 3 L. NECK: JVD unable to assess. Respiratory effort increased. Lungs decreased breath sounds. Some crackles. Cardiovascular: First and second sounds normal. Lower extremity in a dressing. INVESTIGATIONS: White count 18, hemoglobin 13.6, potassium 3.9, BUN 40, creatinine 0.92. ASSESSMENT: 1. Acute on chronic congestive heart failure exacerbation, slow to respond. Patient remains on IV Lasix. 2. Bilateral lower extremity venostasis ulcers with secondary cellulitis, currently on ciprofloxacin and local wound care. 3. Chronic gait dysfunction uses a walker. 4. Moderate tricuspid regurgitation nonrheumatic. 5. Secondary pulmonary hypertension. 6. Essential hypertension. PLAN: Continue medication and treatment plan. The patient is on IV Ancef and Cipro per ID, the patient is not able to do much PT/OT. Follow. MMODL / IJN: [id number] /
[2017-10-22] MEDS: BISACODYL 10 MG SUPP RECTAL SCH (21:15)
[2017-10-23] MEDS: FUROSEMIDE 10 MG/ML 4 ML VIAL IV SCH (06:13)
[2017-10-23 08:14] LABS: Anisocytosis Slight; Basophils % (A) 0 %; Eosinophils # (A) 0.1 k/uL (0-0.7); Eosinophils % (A) 1 %; HCT 47.5 % (34.0-46.0); HGB 13.3 gm/dL (11.4-16.0); Hypochromasia Marked; Lymphocytes % (A) 12 %; MCH 25.3 pg (25.0-35.0); MCHC 27.9 g/dL (31.0-37.0); MCV 90.7 fL (80.0-100.0); Mean Platelet Volume 7.7; Monocytes # (A) 0.6 k/uL (0-1.0); Monocytes % (A) 8 %; Neutrophils % (A) 75 %; Platelet Count 170 k/uL (150-450); RBC 5.24 m/uL (3.80-5.40); RDW 17.4 % (11.5-15.5); WBC 7.9 k/uL (3.8-10.6)
[2017-10-23 08:23] LABS: Blood Urea Nitrogen 33 mg/dL (7-17); Calcium 9.2 mg/dL (8.4-10.2); Chloride 95 mmol/L (98-107); Glucose 90 mg/dL (74-99); Sodium 140 mmol/L (137-145)
[2017-10-23 08:33] LABS: Anion Gap 2 mmol/L
[2017-10-23 08:41] LABS: Carbon Dioxide 43 mmol/L (22-30)
[2017-10-23] MEDS: CIPROFLOXACIN HCL 500 MG TAB PO SCH ×2 (09:11→20:42)
[2017-10-23] MEDS: ceFAZolin IN SWFI 2 GM/20 ML SYRINGE IVP SCH ×3 (09:11→23:19)
[2017-10-23] MEDS: HEPARIN SODIUM,PORCINE 5,000 UNIT/ML 1 ML VIAL SQ SCH ×2 (09:11→20:42)
[2017-10-23] MEDS: LISINOPRIL-HCTZ 10-12.5 MG 1 EACH TAB PO SCH (09:12)
[2017-10-23] MEDS: SENNOSIDES 8.6 MG TAB PO SCH ×2 (09:12→20:41)
[2017-10-23] MEDS: METOPROLOL SUCCINATE (ER) 50 MG TAB.ER.24H PO SCH (09:12)
[2017-10-23] MEDS: POTASSIUM CITRATE 10 MEQ TABLET.ER PO SCH (09:12)
--- NOTE | 2017-10-23 15:34 | PN ---
PROGRESS NOTE DATE OF SERVICE: 10/23/17. The patient seen and examined by me. I discussed with nurse practitioner, Raffyrosa. The patient is a bit tired. No new issues. PHYSICAL EXAMINATION: Temperature 96.7, pulse 70, respiratory 20, blood pressure 150/94, pulse ox 98% on 3 L. LUNGS: Decreased breath sounds. Tired-appearing. INVESTIGATIONS: White count 7.9, potassium 4.0, bicarb 43, BUN 33, creatinine 0.9. ASSESSMENT: 1. Acute on chronic congestive heart failure exacerbation. 2. Bilateral lower extremity venostasis ulcer with secondary cellulitis, on antibiotics. 3. Metabolic alkalosis and volume contraction. PLAN: We will add some Diamox. Lasix has been switched to p.o. photofinishing laboratory worker is looking into getting legal guardian as patient has got no family and patient will then probably go to the [facility]. MMKATHRYNL / IJN: [id number] /
--- NOTE | 2017-10-23 16:43 | P.PN ---
Progress Note - Text Progress Note Date: 10/23/17 DATE OF SERVICE: 10/23/2017 PRESENTING COMPLAINT: Short of breath and weakness HISTORY OF PRESENT ILLNESS: 77-year-old female admitted with generalized weakness and tiredness as well as shortness of breath. Adult Protective Services involved with the patient with some care issues, patient's neighbor has been receiving monies from the patient to provide care, however patient has not been properly care for. Patient will likely need a court-appointed guardian. INTERVAL HISTORY: 10/23/2017: Patient lying in bed appears comfortable yet somewhat sleepy. Breathing is much improved. States she does feel tired and weak. Tolerating her diet eating about 75% of each meal. Last bowel movement 10/23/2017. Guardianship successfully obtained through the court system today, patient refusing to work with physical therapy. 10/22/2017: Patient lying in bed appears comfortable. Breathing is improved. States she still feels fairly tired and weak. Tolerating her diet eating about 50% of her meals. Last bowel movement prior to admission. REVIEW OF SYSTEMS: Done for constitutional ,cardiovascular, GI, pulmonary with relevant findings as above. CURRENT MEDICATIONS Acetaminophen, [place], DuoNeb, Dulcolax, capsule, Cipro, Lasix, Toprol-XL 50 g by mouth daily, senna, PHYSICAL EXAM VITAL SIGNS: Temperature 96.7, pulse 78, respiratory rate 20, blood pressure 150/94, oxygen saturation 90% on 3 L. GENERAL APPEARANCE: Sitting up in bed, not in distress. EYES: Pupils equal. Conjunctiva normal. NECK: JVD not raised. Mass not palpable. RESPIRATORY: Respiratory effort increased. Lungs diminished to auscultation. CARDIOVASCULAR: First and second sounds normal. No edema. ABDOMEN: Soft. Liver and spleen not palpable. No tenderness. No mass palpable. PSYCHIATRY: Alert and oriented x3. Mood and affect normal. INTEGUMENT: Bilateral lower extremities red warm erythematic tender to palpation INVESTIGATIONS: LABS: Hemoglobin 13.3, MCHC 27.9, RDW 17.4, chloride 95, carbon dioxide 43, BUN 33, creatinine 0.90. Leg wound cultures positive for E. coli, Morganella, and enterococcus faecalis ASSESSMENT: -Acute on chronic diastolic congestive heart failure, in a patient with an EF of 55-60%. 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 -Essential hypertension. -Secondary pulmonary hypertension -Moderate tricuspid regurgitation nonrheumatic -Primary osteoarthritis of multiple joints bilateral. -Chronic gait dysfunction uses a walker. PLAN: Continue daily weights strict I&O, IV Lasix 40 mg IV twice daily, continue IV antibiotic therapy with Cefazolin and Cipro, local wound care with Aquacel Silver and Wei wraps per infectious disease. Guardianship obtained today from the court systems, patient has no living relatives and has had a neighbor formerly taking care of her however patient home and surroundings were found unlivable by adult protective services, hence court-appointed guardian placed. Patient will likely go to [facility] when fully assessed by physical therapy. Plan of care discussed at the bedside we'll follow closely. HOT DOG VENDER statement: Patient was seen and examined by nurse practitioner Cori Landry and all elements of the case discussed with attending Dr. Dc
[2017-10-23] MEDS: acetaZOLAMIDE 250 MG TAB PO SCH (20:42)
[2017-10-23] MEDS: BISACODYL 10 MG SUPP RECTAL SCH (20:42)
--- NOTE | 2017-10-24 07:38 | PN ---
PROGRESS NOTE DATE OF SERVICE: 11/02/2017. REASON FOR FOLLOW UP: Bilateral lower extremity venous stasis ulcer with cellulitis. INTERVAL HISTORY: The patient is afebrile. She has been breathing comfortably. Denies significant chest pain. No cough. No abdominal pain and no pain in her leg wound area. EXAMINATION: Blood pressure is 135/97 with a pulse of 81, temperature of 97.5. She is 96% on 3 L nasal cannula. General description is an elderly female lying in bed in no distress. Respiratory system: Unlabored breathing. Clear to auscultation anteriorly. Heart S1, S2. Regular rate and rhythm. ABDOMEN: Soft, no tenderness. Lower extremity wound has been dressed by the RN , this before my evaluation. Did mention that overall swelling and redness has improved and no drainage. LABS: Hemoglobin is 13.3, white count 7.9, BUN of 33, creatinine 0.90. DIAGNOSTIC IMPRESSION AND PLAN: Patient with bilateral lower extremity venous stasis ulcer with cellulitis which is currently on cefazolin and Cipro that will be continued. Local wound care with Aquacel Silver and Wei wrap to keep the swelling down. Continue supportive care. MMODL / IJN: [id number] / MTDBharat
[2017-10-24] MEDS: FUROSEMIDE 40 MG TAB PO SCH (08:07)
[2017-10-24] MEDS: acetaZOLAMIDE 250 MG TAB PO SCH ×2 (08:07→23:51)
[2017-10-24] MEDS: ceFAZolin IN SWFI 2 GM/20 ML SYRINGE IVP SCH ×3 (08:07→23:54)
[2017-10-24] MEDS: CIPROFLOXACIN HCL 500 MG TAB PO SCH ×2 (08:07→23:51)
[2017-10-24] MEDS: HEPARIN SODIUM,PORCINE 5,000 UNIT/ML 1 ML VIAL SQ SCH ×2 (08:08→23:53)
[2017-10-24] MEDS: POTASSIUM CITRATE 10 MEQ TABLET.ER PO SCH (08:08)
[2017-10-24] MEDS: LISINOPRIL-HCTZ 10-12.5 MG 1 EACH TAB PO SCH (08:08)
[2017-10-24] MEDS: SENNOSIDES 8.6 MG TAB PO SCH ×2 (08:08→23:51)
[2017-10-24] MEDS: METOPROLOL SUCCINATE (ER) 50 MG TAB.ER.24H PO SCH (08:08)
[2017-10-24 08:43] LABS: Blood Urea Nitrogen 30 mg/dL (7-17); Calcium 9.4 mg/dL (8.4-10.2); Chloride 91 mmol/L (98-107); Glucose 99 mg/dL (74-99)
[2017-10-24 08:51] LABS: Anisocytosis Slight; Basophils % (A) 1 %; Eosinophils # (A) 0.1 k/uL (0-0.7); Eosinophils % (A) 1 %; HCT 47.6 % (34.0-46.0); HGB 13.4 gm/dL (11.4-16.0); Hypochromasia Marked; Lymphocytes # (A) 1.1 k/uL (1.0-4.8); Lymphocytes % (A) 16 %; MCH 25.8 pg (25.0-35.0); MCHC 28.2 g/dL (31.0-37.0); MCV 91.5 fL (80.0-100.0); Mean Platelet Volume 7.8; Monocytes # (A) 0.6 k/uL (0-1.0); Monocytes % (A) 8 %; Neutrophils % (A) 71 %; Platelet Count 182 k/uL (150-450); RDW 16.1 % (11.5-15.5); WBC 7.1 k/uL (3.8-10.6)
[2017-10-24 09:11] LABS: Sodium 139 mmol/L (137-145)
[2017-10-24 09:14] LABS: Polychromasia Present
[2017-10-24 09:18] LABS: Anion Gap 5 mmol/L
[2017-10-24 09:19] LABS: Carbon Dioxide 43 mmol/L (22-30)
--- NOTE | 2017-10-24 17:47 | PN ---
PROGRESS NOTE DATE OF SERVICE: 10/24/17 ATTENDING NOTE: Patient seen and examined by me. I discussed with nurse practitioner, Ms. Landry. The patient is sitting up on a chair today. Ate a bit better, more awake, more talkative. PHYSICAL EXAMINATION: Temperature 96.9, pulse 79, respiratory 20, blood pressure 120/86, pulse ox 97% on 3 L. lungs decreased breath sounds. Psych awake answering questions. The patient's medications include ciprofloxacin, Diamox. LABS: Bicarb 43. ASSESSMENT/PLAN: 1. Acute on chronic congestive heart failure from diastolic dysfunction. Ejection fraction 55-60%, now stabilized on oral Lasix. 2. Acute metabolic alkalosis. The patient is on Diamox. 3. Continue current medication and treatment plan. Awaiting transfer to [facility]. MONIQUE / OPAL: [id number] /
--- NOTE | 2017-10-24 17:56 | P.PN ---
Progress Note - Text Progress Note Date: 10/24/17 DATE OF SERVICE: 10/24/2017 PRESENTING COMPLAINT: Short of breath and weakness HISTORY OF PRESENT ILLNESS: 77-year-old female admitted with generalized weakness and tiredness as well as shortness of breath. Adult Protective Services involved with the patient with some care issues, patient's neighbor has been receiving monies from the patient to provide care, however patient has not been properly care for. Patient will likely need a court-appointed guardian. INTERVAL HISTORY: 10/24/2017: Patient lying in bed appears comfortable yet somewhat sleepy breathing is improving. States she wants to set up in a chair. Tolerates her diet eating about 75% of each meal. Last bowel movement 10/24/2017, encourage patient to work with physical therapy, stated she did want to, explained the importance of her working with them so she can go home. 10/23/2017: Patient lying in bed appears comfortable yet somewhat sleepy. Breathing is much improved. States she does feel tired and weak. Tolerating her diet eating about 75% of each meal. Last bowel movement 10/23/2017. Guardianship successfully obtained through the court system today, patient refusing to work with physical therapy. 10/22/2017: Patient lying in bed appears comfortable. Breathing is improved. States she still feels fairly tired and weak. Tolerating her diet eating about 50% of her meals. Last bowel movement prior to admission. REVIEW OF SYSTEMS: Done for constitutional ,cardiovascular, GI, pulmonary with relevant findings as above. CURRENT MEDICATIONS Acetaminophen, [place], DuoNeb, Dulcolax, capsule, Cipro, Lasix, Toprol-XL 50 g by mouth daily, senna, PHYSICAL EXAM VITAL SIGNS: Temperature 96.9, pulse 79, respiratory rate 20, blood pressure 121/86, oxygen saturation 97% on 3 L. GENERAL APPEARANCE: Sitting up in bed, not in distress. HEENT: Normocephalic, Pupils equal. Conjunctiva normal. JVD not raised. Mass not palpable. RESPIRATORY: Respiratory effort increased. Lungs diminished to auscultation. CARDIOVASCULAR: First and second sounds normal. No edema. ABDOMEN: Soft. Liver and spleen not palpable. No tenderness. No mass palpable. PSYCHIATRY: Alert and oriented x3. Mood and affect normal. INTEGUMENT: Bilateral lower extremities red warm erythematic tender to palpation INVESTIGATIONS: LABS: Hematocrit 47.6, chloride 91, carbon dioxide 43, BUN 30, creatinine 1.02. Leg wound cultures positive for E. coli, Morganella, and enterococcus faecalis ASSESSMENT: -Acute on chronic diastolic congestive heart failure, in a patient with an EF of 55-60%. 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 -Essential hypertension. -Secondary pulmonary hypertension -Moderate tricuspid regurgitation nonrheumatic -Primary osteoarthritis of multiple joints bilateral. -Chronic gait dysfunction uses a walker. PLAN: Continue daily weights strict I&O, IV Lasix 40 mg by mouth daily, continue IV antibiotic therapy with Cefazolin and Cipro, local wound care with Aquacel Silver and Wei wraps per infectious disease. Await PT assessment with possible placement to [facility] [place] on Thursday. Guardianship obtained Thursday from the court systems, patient has no living relatives and has had a neighbor formerly taking care of her however patient home and surroundings were found unlivable by adult protective services, hence court-appointed guardian placed. Plan of care discussed at the bedside we'll follow closely. GAS TURBINE POWERPLANT MECHANIC statement: Patient was seen and examined by nurse practitioner Cori Landry and all elements of the case discussed with attending Dr. Dc
[2017-10-24] MEDS: BISACODYL 10 MG SUPP RECTAL SCH (21:39)
[2017-10-25] MEDS: ceFAZolin IN SWFI 2 GM/20 ML SYRINGE IVP SCH ×3 (08:16→23:22)
[2017-10-25] MEDS: LISINOPRIL-HCTZ 10-12.5 MG 1 EACH TAB PO SCH (08:17)
[2017-10-25] MEDS: METOPROLOL SUCCINATE (ER) 50 MG TAB.ER.24H PO SCH (08:17)
[2017-10-25] MEDS: CIPROFLOXACIN HCL 500 MG TAB PO SCH ×2 (08:17→22:00)
[2017-10-25] MEDS: HEPARIN SODIUM,PORCINE 5,000 UNIT/ML 1 ML VIAL SQ SCH ×2 (08:17→22:01)
[2017-10-25] MEDS: FUROSEMIDE 40 MG TAB PO SCH (08:17)
[2017-10-25] MEDS: acetaZOLAMIDE 250 MG TAB PO SCH ×2 (08:17→22:00)
[2017-10-25] MEDS: SENNOSIDES 8.6 MG TAB PO SCH ×2 (08:18→22:00)
[2017-10-25] MEDS: POTASSIUM CITRATE 10 MEQ TABLET.ER PO SCH (08:18)
--- NOTE | 2017-10-25 09:02 | PN ---
PROGRESS NOTE DATE OF SERVICE: 10/24/17 REASON FOR FOLLOWUP: Bilateral lower extremity venous stasis ulcer and cellulitis. INTERVAL HISTORY: The patient is afebrile. She is breathing comfortably. Denies significant chest pain. No cough. No abdominal pain or diarrhea. EXAMINATION: Blood pressure is 122/81 with a pulse of 75, temperature of 97.2. He is 93% on 3 L nasal cannula. General description is an elderly female up in the chair in no distress. Respiratory system unlabored breathing with decreased intensity of breath sounds. Heart S1 , S2. Regular rate and rhythm. Abdomen soft, no tenderness. Bilateral leg wound superficial with surrounding redness has improved. IMPRESSION/PLAN: Patient with bilateral lower extremity venous stasis ulcer secondary cellulitis, currently covered with Cefazolin, to finish therapy with p.o. Keflex and Cipro along with Aquacel silver dressing to the wound. Continue supportive care. MMODL / IJN: [id number] / MTDD
[2017-10-25] MEDS ORDERED: ERGOCALCIFEROL 50,000 UNIT CAP PO SCH (12:00)
[2017-10-25] MEDS ORDERED: LACTATED RINGERS 1,000 ML IV SCH (17:45)
--- NOTE | 2017-10-25 17:58 | P.PN ---
Progress Note - Text Progress Note Date: 10/25/17 DATE OF SERVICE: 10/25/2017 PRESENTING COMPLAINT: Short of breath and weakness HISTORY OF PRESENT ILLNESS: 77-year-old female admitted with generalized weakness and tiredness as well as shortness of breath. Adult Protective Services involved with the patient with some care issues, patient's neighbor has been receiving monies from the patient to provide care, however patient has not been properly care for. Patient will likely need a court-appointed guardian. INTERVAL HISTORY: 10/25/2017: Lying in bed resting quietly however very sleepy, difficult to arouse, breathing much improved. Mucous membranes noted to be very dry, patient's not really eating very much between 20 and 30% of her breakfast. Last BM 2017. 10/24/2017: Patient lying in bed appears comfortable yet somewhat sleepy breathing is improving. States she wants to set up in a chair. Tolerates her diet eating about 75% of each meal. Last bowel movement 10/24/2017, encourage patient to work with physical therapy, stated she did want to, explained the importance of her working with them so she can go home. 10/23/2017: Patient lying in bed appears comfortable yet somewhat sleepy. Breathing is much improved. States she does feel tired and weak. Tolerating her diet eating about 75% of each meal. Last bowel movement 10/23/2017. Guardianship successfully obtained through the court system today, patient refusing to work with physical therapy. 10/22/2017: Patient lying in bed appears comfortable. Breathing is improved. States she still feels fairly tired and weak. Tolerating her diet eating about 50% of her meals. Last bowel movement prior to admission. REVIEW OF SYSTEMS: Done for constitutional ,cardiovascular, GI, pulmonary with relevant findings as above. CURRENT MEDICATIONS Acetaminophen, [place], DuoNeb, Dulcolax, capsule, Cipro, Lasix, Toprol-XL 50 g by mouth daily, senna, PHYSICAL EXAM VITAL SIGNS: Temperature 97.2, pulse 73, respiratory rate 16, blood pressure 116/78, oxygen saturation 98% on 3 L. GENERAL APPEARANCE: Lying in bed, not in distress. HEENT: Normocephalic, Pupils equal. Conjunctiva normal. JVD not raised. Mass not palpable. RESPIRATORY: Respiratory effort increased. Lungs diminished to auscultation. CARDIOVASCULAR: First and second sounds normal. No edema. ABDOMEN: Soft. Liver and spleen not palpable. No tenderness. No mass palpable. PSYCHIATRY: Alert and oriented x3. Mood and affect normal. INTEGUMENT: Bilateral lower extremities red warm erythematic tender to palpation INVESTIGATIONS: LABS: None new for today ASSESSMENT: -Acute on chronic diastolic congestive heart failure, in a patient with an EF of 55-60%. 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 -Essential hypertension. -Secondary pulmonary hypertension -Moderate tricuspid regurgitation nonrheumatic -Primary osteoarthritis of multiple joints bilateral. -Chronic gait dysfunction uses a walker. PLAN: Continue daily weights patient to receive a fluid bolus, Lasix to be held for the time being, continue IV antibiotic therapy with Cefazolin and Cipro, local wound care with Aquacel Silver and Wei wraps per infectious disease. Await PT assessment with possible placement to [facility] [place] on Thursday. Guardianship obtained Thursday from the court systems, patient has no living relatives and has had a neighbor formerly taking care of her however patient home and surroundings were found unlivable by adult protective services, hence court-appointed guardian placed. Plan of care discussed at the bedside we'll follow closely. BUN PANNER statement: Patient was seen and examined by nurse practitioner Cori Landry and all elements of the case discussed with attending Dr. Dc
--- NOTE | 2017-10-25 18:42 | PN ---
PROGRESS NOTE DATE OF SERVICE: 10/25/17. ATTENDING NOTE: The patient was seen and examined by me. I discussed with nurse practitioner, Ms. Landry. The patient has become more lethargic, has barely been eating, arousable. No focal weakness. PHYSICAL EXAMINATION: Temperature 96.6, pulse 70, respiratory 20, blood pressure 109/79, pulse ox 97% on room air. Lying in bed, lethargic but arousable. LUNGS: Decreased breath sounds. Cardiovascular 1st and second sounds normal. ASSESSMENT: 1. Acute metabolic encephalopathy could be from dehydration and poor oral intake. 2. Clinically dehydrated. Patient's tongue is totally parched. Has been on Lasix and barely taking anything orally. 3. Acute metabolic alkalosis from volume contraction. PLAN: Prognosis is not good. We will hold off patient's Lasix for next 2 doses. We will hydrate the patient with 75 mL of LR for a total of 1 L and see how the patient does. MMODL / IJN: [id number] /
[2017-10-25 19:43] LABS: Blood Urea Nitrogen 29 mg/dL (7-17); Calcium 9.7 mg/dL (8.4-10.2); Chloride 92 mmol/L (98-107); Glucose 87 mg/dL (74-99); Potassium 4.5 mmol/L (3.5-5.1); Sodium 139 mmol/L (137-145)
[2017-10-25 19:50] LABS: Anion Gap 4 mmol/L
[2017-10-25 19:51] LABS: Carbon Dioxide 43 mmol/L (22-30)
[2017-10-25] MEDS: BISACODYL 10 MG SUPP RECTAL SCH (22:03)
[2017-10-26] MEDS: POTASSIUM CITRATE 10 MEQ TABLET.ER PO SCH (08:04)
[2017-10-26] MEDS: ceFAZolin IN SWFI 2 GM/20 ML SYRINGE IVP SCH ×2 (08:04→15:08)
[2017-10-26] MEDS: METOPROLOL SUCCINATE (ER) 50 MG TAB.ER.24H PO SCH (08:04)
[2017-10-26] MEDS: HEPARIN SODIUM,PORCINE 5,000 UNIT/ML 1 ML VIAL SQ SCH ×2 (08:04→20:25)
[2017-10-26] MEDS: FUROSEMIDE 40 MG TAB PO SCH (08:04)
[2017-10-26] MEDS: CIPROFLOXACIN HCL 500 MG TAB PO SCH ×2 (08:04→20:25)
[2017-10-26] MEDS: SENNOSIDES 8.6 MG TAB PO SCH ×2 (08:04→20:25)
[2017-10-26] MEDS: LISINOPRIL-HCTZ 10-12.5 MG 1 EACH TAB PO SCH (08:04)
[2017-10-26] MEDS: acetaZOLAMIDE 250 MG TAB PO SCH ×2 (08:04→20:25)
[2017-10-26] MEDS ORDERED: SODIUM CHLORIDE 0.9% 1,000 ML IV SCH (09:00)
--- NOTE | 2017-10-26 09:49 | PN ---
PROGRESS NOTE DATE OF SERVICE: 10/25/2017. REASON FOR FOLLOWUP: Bilateral lower extremity venous stasis ulcer and cellulitis. INTERVAL HISTORY: The patient is afebrile. She has been breathing comfortably. Denies having any chest pain or shortness of breath, slightly sleepy and lethargic per the RN, but no pain in the legs and no diarrhea. EXAMINATION: Blood pressure is 119/79 with a pulse of 71, temperature of 96.6. She is 97% on room air. General description is an elderly female, lying in bed in no distress. Respiratory system: Unlabored breathing. Clear to auscultation anteriorly. Heart S1, S2. Regular rate and rhythm. Abdomen soft and no tenderness. Bilateral legs are currently dressed up. No obvious drainage on the dressing. LABS: BUN of 29, creatinine 1.0. DIAGNOSTIC IMPRESSION AND PLAN: Patient with bilateral lower extremity venous stasis ulcer with secondary cellulitis. Currently covered with cefazolin and Cipro. This will be continued and switched to p.o. Keflex and Cipro for another week to 10 days along with local wound care with Aquacel Silver dressing followed by Wei wrap. Family present at bedside. Their questions were answered. MMODL / IJN: [id number] /
[2017-10-26 10:09] LABS: Anion Gap 8 mmol/L; Blood Urea Nitrogen 29 mg/dL (7-17); Calcium 9.7 mg/dL (8.4-10.2); Carbon Dioxide 34 mmol/L (22-30); Chloride 96 mmol/L (98-107); Glucose 84 mg/dL (74-99); Potassium 4.3 mmol/L (3.5-5.1); Sodium 138 mmol/L (137-145)
[2017-10-26] MEDS ORDERED: RX INFO: IV CONTRAST WAS GIVEN 1 EACH MISC MISCELLANE PRN (10:43)
[2017-10-26] MEDS ORDERED: LACTATED RINGERS 1,000 ML IV SCH (16:30)
--- NOTE | 2017-10-26 17:58 | PN ---
PROGRESS NOTE DATE OF SERVICE: 10/26/2017 ATTENDING NOTE: Patient was seen and examined by me. Discussed with the nurse practitioner Ms. Landry. Patient was very lethargic yesterday. I decided to stop the Lasix, hydrate her gently, being careful because of CHF. The patient is more awake today, did eat a little bit, is actually answering questions, though still tired and lethargic. PHYSICAL EXAMINATION: Temperature 97.4, pulse 76, respiration 18, blood pressure 133/85, pulse ox 96% on 3 L. Answering simple questions. Dressing of the lower extremity. INVESTIGATIONS: Potassium 4.3, BUN 29, creatinine 0.9. MEDICATIONS: The patient is gently being hydrated. Lasix has been held. The patient is also on Diamox. ASSESSMENT: 1. Acute metabolic encephalopathy from severe volume contraction causing metabolic alkalosis. 2. Chronic congestive heart failure from diastolic dysfunction; ejection fraction 55% to 60%, stable. PLAN: We will continue to hold off patient's Lasix until tomorrow, cut back on IV fluids. Encourage oral intake. I am hoping the patient can be discharged tomorrow. Overall prognosis is guarded. Antibiotics have been switched to p.o. Keflex per Dr. Pan. MMODL / IJN: [id number] /
--- NOTE | 2017-10-26 18:13 | P.PN ---
Progress Note - Text Progress Note Date: 10/26/17 DATE OF SERVICE: 10/26/2017 PRESENTING COMPLAINT: Short of breath and weakness HISTORY OF PRESENT ILLNESS: 77-year-old female admitted with generalized weakness and tiredness as well as shortness of breath. Adult Protective Services involved with the patient with some care issues, patient's neighbor has been receiving monies from the patient to provide care, however patient has not been properly care for. Patient will likely need a court-appointed guardian. INTERVAL HISTORY: 10/26/2017: Lying in bed able to answer simple straightforward questions was difficult to arouse earlier, refusing to eat breakfast,breathing is improved, no cough afebrile. local dressing changes to bilateral lower extremities. Continues to have some weakness, refuses to work with physical therapy, states she doesn't need physical therapy and wants to go home. last BM. 10/24/2017. 10/25/2017: Lying in bed resting quietly however very sleepy, difficult to arouse, breathing much improved. Mucous membranes noted to be very dry, patient's not really eating very much between 20 and 30% of her breakfast. Last BM 2017. 10/24/2017: Patient lying in bed appears comfortable yet somewhat sleepy breathing is improving. States she wants to set up in a chair. Tolerates her diet eating about 75% of each meal. Last bowel movement 10/24/2017, encourage patient to work with physical therapy, stated she did want to, explained the importance of her working with them so she can go home. 10/23/2017: Patient lying in bed appears comfortable yet somewhat sleepy. Breathing is much improved. States she does feel tired and weak. Tolerating her diet eating about 75% of each meal. Last bowel movement 10/23/2017. Guardianship successfully obtained through the court system today, patient refusing to work with physical therapy. 10/22/2017: Patient lying in bed appears comfortable. Breathing is improved. States she still feels fairly tired and weak. Tolerating her diet eating about 50% of her meals. Last bowel movement prior to admission. REVIEW OF SYSTEMS: Done for constitutional ,cardiovascular, GI, pulmonary with relevant findings as above. CURRENT MEDICATIONS Acetaminophen, [place], DuoNeb,Diamox , Dulcolax,Keflex, Cipro, Lasix, Toprol-XL 50 g by mouth daily, senna, PHYSICAL EXAM VITAL SIGNS: temperature 97.4, pulse 76, respiratory rate 18, blood pressure 133/85, oxygen saturation 96% on 3 L. GENERAL APPEARANCE: Lying in bed, not in distress. HEENT: Normocephalic, Pupils equal. Conjunctiva normal. JVD not raised. Mass not palpable, Some dryness noted to the oropharynx and tongue RESPIRATORY: Respiratory effort increased. Lungs diminished to auscultation. CARDIOVASCULAR: First and second sounds normal. mild edema. ABDOMEN: Soft. Liver and spleen not palpable. No tenderness. No mass palpable. PSYCHIATRY: able to answer some simple straightforward questions however is willful at times and will not open her eyes. Mood and affect somewhat confused. INTEGUMENT: Bilateral lower extremities red warm erythematic tender to palpation INVESTIGATIONS: LABS: None new for today ASSESSMENT: -Acute on chronic diastolic congestive heart failure, in a patient with an EF of 55-60%. -Acute bilateral lower extremity venous stasis ulcers with secondary cellulitis , slow to respond -acute metabolic encephalopathy from severe volume contraction causing metabolic alkalosis. 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 -Essential hypertension. -Secondary pulmonary hypertension -Moderate tricuspid regurgitation nonrheumatic -Primary osteoarthritis of multiple joints bilateral. -Chronic gait dysfunction uses a walker. PLAN: Continue daily weights continue gentle hydration and encourage oral intake. Lasix to be held for the time being, continue IV antibiotic therapy with Cefazolin and Cipro, local wound care with Aquacel Silver and Wei wraps per infectious disease. Await PT assessment [facility]. Plan of care discussed at the bedside we'll follow closely. VARNISHER APPRENTICE statement: Patient was seen and examined by nurse practitioner Cori Landry and all elements of the case discussed with attending Dr. Dc
[2017-10-26] MEDS: CEPHALEXIN 500 MG CAP PO SCH (20:25)
[2017-10-26] MEDS: BISACODYL 10 MG SUPP RECTAL SCH (20:26)
--- NOTE | 2017-10-26 22:49 | PN ---
PROGRESS NOTE DATE OF SERVICE: 10/26/2017 REASON FOR FOLLOWUP: Bilateral lower extremity venostasis ulcers and cellulitis. INTERVAL HISTORY: The patient is afebrile. She was seen on rounds early this afternoon. The patient was slightly lethargic, though the patient denies having any chest pain or cough. No abdominal pain or any pain in her leg area. PHYSICAL EXAMINATION: Blood pressure 144/82 with a pulse of 68, temperature of 97.6. She is 95% on 3 L nasal cannula. General description is an elderly female lying in bed in no distress. RESPIRATORY SYSTEM: Unlabored breathing. Clear to auscultation anteriorly. HEART: S1, S2. Regular rate and rhythm. ABDOMEN: Soft. No tenderness. Bilateral lower extremity wounds are currently dressed up. No obvious drainage on the dressing. LABS: BUN of 29, creatinine 0.90. DIAGNOSTIC IMPRESSION AND PLAN: Patient with bilateral lower extremity venostasis ulcers and cellulitis. Culture did show multiple pathogens. Antibiotic has been adjusted to p.o. Cipro and keflex that should continue for about a week. Local wound care with Aquacel Silver dressing. Continue with supportive care. MMODL / IJN: [id number] / MT
[2017-10-27] MEDS: HEPARIN SODIUM,PORCINE 5,000 UNIT/ML 1 ML VIAL SQ SCH ×2 (08:45→21:25)
[2017-10-27] MEDS: CEPHALEXIN 500 MG CAP PO SCH ×3 (08:45→21:28)
[2017-10-27] MEDS: CIPROFLOXACIN HCL 500 MG TAB PO SCH ×2 (08:46→21:28)
[2017-10-27] MEDS: LISINOPRIL-HCTZ 10-12.5 MG 1 EACH TAB PO SCH (08:46)
[2017-10-27] MEDS: FUROSEMIDE 40 MG TAB PO SCH (08:46)
[2017-10-27] MEDS: POTASSIUM CITRATE 10 MEQ TABLET.ER PO SCH (08:46)
[2017-10-27] MEDS: acetaZOLAMIDE 250 MG TAB PO SCH ×2 (08:47→21:28)
[2017-10-27] MEDS: METOPROLOL SUCCINATE (ER) 50 MG TAB.ER.24H PO SCH (08:47)
[2017-10-27] MEDS: SENNOSIDES 8.6 MG TAB PO SCH ×2 (08:47→21:28)
[2017-10-27 15:06] VITALS: BMI 41.3
--- NOTE | 2017-10-27 15:41 | PN ---
PROGRESS NOTE DATE OF SERVICE: 10/27/2017. REASON FOR FOLLOWUP: Bilateral lower extremities venous stasis ulcer. INTERVAL HISTORY: The patient is afebrile. She is breathing comfortably. Still remains to be weak and lethargic. No nausea or vomiting has been noticed per nursing staff. The dressing was changed by them. Did mention overall decrease in swelling and redness. EXAMINATION: Blood pressure is 128/71 with a pulse of 71, temperature 97.8. She is 96% on 3 L nasal cannula. General description is an elderly female lying in bed in no distress. Respiratory system unlabored breathing. Clear to auscultation anteriorly. Heart S1, S2. Regular rate and rhythm. ABDOMEN: Soft. No tenderness. LABS: BUN of 29, creatinine 0.90. DIAGNOSTIC IMPRESSION AND PLAN: Patient with bilateral lower extremity venous stasis ulcer secondary to cellulitis. Culture positive for Morganella, E coli, Enterococcus. The patient is currently on Cipro and Keflex that she can continue for a week. Local wound care with Aquacel Silver dressing. Continue supportive care. MMODL / IJN: [id number] /
--- NOTE | 2017-10-27 16:56 | DS ---
DISCHARGE SUMMARY DATE OF ADMISSION: October 18, 2017. DATE OF DISCHARGE: October 27, 2017. FINAL DIAGNOSES: 1. Acute on chronic congestive heart failure from diastolic dysfunction. Ejection fraction 55-60% from hypertensive heart disease. 2. Acute bilateral lower extremity venous stasis ulcers with secondary cellulitis present on admission. 3. Acute metabolic encephalopathy from volume contraction causing metabolic alkalosis. 4. Chronic kidney disease stage 3, due to hypertensive nephrosclerosis. 5. Chronic obstructive pulmonary disease in an ex-smoker. 6. Essential hypertension. 7. Secondary pulmonary hypertension secondary to congestive heart failure and chronic obstructive pulmonary disease. 8. Moderate tricuspid regurgitation nonrheumatic. 9. Primary osteoarthritis multiple joints, bilateral. 10.Chronic gait dysfunction uses a walker. HOSPITAL COURSE: This patient was living by herself, really has no family, presented with lower extremity cellulitis, venous ulcers treated with antibiotics per Dr. Pan. Doing better. Getting local care and Wei wraps. Also with CHF exacerbation. 2D echocardiogram showed EF to be preserved. The patient did become a bit encephalopathic with volume contraction. Did respond well to Diamox. The patient overall prognosis is not good. The patient is able to answer questions. Sometimes needs assistance with eating. The patient has got a court-appointed legal guardian. PHYSICAL EXAMINATION: Temperature 97.6, pulse 74, respiratory 18, blood pressure 132/70, pulse ox 97% on 3 L. Lungs decreased breath sounds, able to answer simple questions. Lower extremities with dressings. BUN 29, creatinine 0.90. DISCHARGE MEDICATIONS: 1. Vitamin D2 50,000 units every 7 days. 2. Lasix 40 mg a day. 3. Toprol-XL 50 mg a day. 4. Potassium 10 mEq a day. 5. Dulcolax 10 mg, Dulcolax suppository q.h.s. p.r.n. 6. Keflex 500 mg p.o. t.i.d. 30 tablets. 7. Cipro 500 mg b.i.d., 20 tablets. 8. Senokot 8.6 mg p.o. b.i.d. 9. Diamox 250 mg p.o. b.i.d., 14 tablets. DISPOSITION: [facility]. Follow up with Dr. Jp Vanessa at the [facility]. Follow up with Dr. Carpio in 1 week. Lower extremity wound care to continue. Lab, CBC, BMP in 3 days. CODE STATUS DNR. Copy to Dr. Vanessa. MMODL / IJN: [id number] /
--- NOTE | 2017-10-27 21:05 | P.PN ---
Progress Note - Text Progress Note Date: 10/27/17 DATE OF SERVICE: 10/27/2017 PRESENTING COMPLAINT: Short of breath and weakness HISTORY OF PRESENT ILLNESS: 77-year-old female admitted with generalized weakness and tiredness as well as shortness of breath. Adult Protective Services involved with the patient with some care issues, patient's neighbor has been receiving monies from the patient to provide care, however patient has not been properly care for. Patient will likely need a court-appointed guardian. INTERVAL HISTORY: 10/27/2017: Lying in bed able to answer simple straightforward questions, is not always very cooperative. Breathing is easy, oxygen delivery via nasal cannula 3 L, no cough, afebrile, local dressing changes to bilateral lower extremities. Has some weakness, not agreeable to work with physical therapy, will likely have to be discharged to adult foster [place] [facility] facility as she is not cooperative enough to be sent to rehabilitation 10/26/2017: Lying in bed able to answer simple straightforward questions was difficult to arouse earlier, refusing to eat breakfast,breathing is improved, no cough afebrile. local dressing changes to bilateral lower extremities. Continues to have some weakness, refuses to work with physical therapy, states she doesn't need physical therapy and wants to go home. last BM. 10/24/2017. 10/25/2017: Lying in bed resting quietly however very sleepy, difficult to arouse, breathing much improved. Mucous membranes noted to be very dry, patient's not really eating very much between 20 and 30% of her breakfast. Last BM 2017. 10/24/2017: Patient lying in bed appears comfortable yet somewhat sleepy breathing is improving. States she wants to set up in a chair. Tolerates her diet eating about 75% of each meal. Last bowel movement 10/24/2017, encourage patient to work with physical therapy, stated she did want to, explained the importance of her working with them so she can go home. 10/23/2017: Patient lying in bed appears comfortable yet somewhat sleepy. Breathing is much improved. States she does feel tired and weak. Tolerating her diet eating about 75% of each meal. Last bowel movement 10/23/2017. Guardianship successfully obtained through the court system today, patient refusing to work with physical therapy. 10/22/2017: Patient lying in bed appears comfortable. Breathing is improved. States she still feels fairly tired and weak. Tolerating her diet eating about 50% of her meals. Last bowel movement prior to admission. REVIEW OF SYSTEMS: Done for constitutional ,cardiovascular, GI, pulmonary with relevant findings as above. CURRENT MEDICATIONS Acetaminophen, [place], DuoNeb,Diamox , Dulcolax,Keflex, Cipro, Lasix, Toprol-XL 50 g by mouth daily, senna, PHYSICAL EXAM VITAL SIGNS: Temperature 97.8, pulse 71, blood pressure 128/71, oxygen saturation 96% on 3 L GENERAL APPEARANCE: Lying in bed, not in distress. HEENT: Normocephalic, Pupils equal. Conjunctiva normal. JVD not raised. Mass not palpable, Some dryness noted to the oropharynx and tongue RESPIRATORY: Respiratory effort increased. Lungs diminished to auscultation. CARDIOVASCULAR: First and second sounds normal. mild edema, Wei wraps in place ABDOMEN: Soft. Liver and spleen not palpable. No tenderness. No mass palpable. PSYCHIATRY: able to answer some simple straightforward questions however is willful at times and will not open her eyes. Mood and affect somewhat confused. INTEGUMENT: Bilateral lower extremities red warm erythematic tender to palpation INVESTIGATIONS: LABS: Chloride 96, carbon dioxide 34, BUN 29, creatinine 0.90. ASSESSMENT: -Acute on chronic diastolic congestive heart failure, in a patient with an EF of 55-60%. -Acute bilateral lower extremity venous stasis ulcers with secondary cellulitis , slow to respond -acute metabolic encephalopathy from severe volume contraction causing metabolic alkalosis. 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 -Essential hypertension. -Secondary pulmonary hypertension -Moderate tricuspid regurgitation nonrheumatic -Primary osteoarthritis of multiple joints bilateral. -Chronic gait dysfunction uses a walker. PLAN: Continue daily weights encourage oral intake. continue IV antibiotic therapy with Keflex and Cipro, local wound care with Aquacel Silver and Wei wraps per infectious disease. Discharge planning for an adult foster care, patient has a court-appointed guardian. Plan of care discussed at the bedside we'll follow closely. THERAPIST'S ASSISTANT statement: Patient was seen and examined by nurse practitioner Cori Landry and all elements of the case discussed with attending Dr. Dc
[2017-10-27] MEDS: BISACODYL 10 MG SUPP RECTAL SCH (21:28)
--- NOTE | 2017-10-27 21:32 | PN ---
PROGRESS NOTE DATE OF SERVICE: 10/27/17. ATTENDING NOTE: The patient seen and examined by me. I discussed with nurse practitioner, Ms. Landry. The patient is overall doing better. Tolerating a diet. More awake. EXAM: Lungs decreased breath sounds, lower extremity in a dressing, answering simple questions. ASSESSMENT: 1. Acute on chronic congestive heart failure now stabilized. 2. Bilateral lower extremity stasis venous ulcers. 3. Metabolic encephalopathy improved. PLAN: Patient was initially scheduled to go to the [facility], but they felt patient not a candidate for rehab. Now patient will be looking at going to adult foster long-term. MMODL / IJN: [id number] /
[2017-10-28] MEDS: LISINOPRIL-HCTZ 10-12.5 MG 1 EACH TAB PO SCH (08:47)
[2017-10-28] MEDS: FUROSEMIDE 40 MG TAB PO SCH (08:47)
[2017-10-28] MEDS: POTASSIUM CITRATE 10 MEQ TABLET.ER PO SCH (08:47)
[2017-10-28] MEDS: CIPROFLOXACIN HCL 500 MG TAB PO SCH ×2 (08:47→20:50)
[2017-10-28] MEDS: AMOXIC-POT CLAV 875-125MG 1 EACH TAB PO SCH ×2 (08:48→20:49)
[2017-10-28] MEDS: METOPROLOL SUCCINATE (ER) 50 MG TAB.ER.24H PO SCH (08:48)
[2017-10-28] MEDS: HEPARIN SODIUM,PORCINE 5,000 UNIT/ML 1 ML VIAL SQ SCH ×2 (08:48→20:50)
[2017-10-28] MEDS: acetaZOLAMIDE 250 MG TAB PO SCH ×2 (08:48→20:49)
[2017-10-28] MEDS: SENNOSIDES 8.6 MG TAB PO SCH ×2 (08:48→20:49)
--- NOTE | 2017-10-28 15:42 | PN ---
PROGRESS NOTE DATE OF SERVICE: 10/28/2017. REASON FOR FOLLOWUP VISIT: Bilateral extremities venous stasis ulcers and cellulitis. INTERVAL HISTORY: The patient is afebrile. She seems to be lethargic this morning. No nausea, vomiting or diarrhea or any changes in clinical condition per the RN. EXAMINATION: Blood pressure 128/68 with a pulse of 69, temperature 97.9. She is 98% on 2 L nasal cannula. General description is an elderly female lying in bed in no distress. Respiratory system: Unlabored breathing. Clear to auscultation anteriorly. Heart S1, S2 regular rate and rhythm. Abdomen soft, no tenderness. The right leg swelling and redness is improved. No drainage. The dressing was dry with no drainage. LABS: BUN of 29, creatinine 0.90. DIAGNOSTIC IMPRESSION AND PLAN: Patient with bilateral lower extremity venous stasis ulcers and cellulitis, currently on oral Augmentin and Cipro that will continue to cover for the pathogen grown from the cultures. Local wound care with Aquacel Silver dressing and follow up in the outpatient center next week. Continue supportive care. MMODL / IJN: [id number] /
--- NOTE | 2017-10-28 19:27 | PN ---
PROGRESS NOTE DATE OF SERVICE: 10/28/2017 ATTENDING NOTE: This patient was seen and examined by me. I discussed the case with the nurse practitioner Ms. Landry. Patient is lying in bed, eating small amounts. On examination, temperature 97.8, blood pressure 120/74, pulse ox 98% on 3 L. Lying in a bed, tired-appearing. LUNGS: Decreased breath sounds. PSYCHIATRIC: Answering simple questions. No blood work from today. ASSESSMENT: 1. Congestive heart failure, stable. 2. Chronic kidney disease. Discharge planning pending. Some facilities have turned her down. packing line worker is looking into the same. MMODL / IJN: [id number] /
--- NOTE | 2017-10-28 20:49 | P.PN ---
Progress Note - Text Progress Note Date: 10/28/17 DATE OF SERVICE: 10/28/2017 PRESENTING COMPLAINT: Short of breath and weakness HISTORY OF PRESENT ILLNESS: 77-year-old female admitted with generalized weakness and tiredness as well as shortness of breath. Adult Protective Services involved with the patient with some care issues, patient's neighbor has been receiving monies from the patient to provide care, however patient has not been properly care for. Patient will likely need a court-appointed guardian. INTERVAL HISTORY: 10/28/2017: Lying in bed able to answer simple straightforward questions, would not initially open her eyes for me.oxygen remains in place, breathing easily. No cough afebrile but will dressing changes to bilateral lower extremities has some weakness. Not Agreeable to work with physical therapy,social work is working with a appointed guardian, son who lives in [place] regarding placement.needs supervision for meals, will eat some between 30 and 50%,maximum assist to move patient around and get her into a chair. Last BM10/27/2017 10/27/2017: Lying in bed able to answer simple straightforward questions, is not always very cooperative. Breathing is easy, oxygen delivery via nasal cannula 3 L, no cough, afebrile, local dressing changes to bilateral lower extremities. Has some weakness, not agreeable to work with physical therapy, will likely have to be discharged to adult foster [place] [facility] facility as she is not cooperative enough to be sent to rehabilitation 10/26/2017: Lying in bed able to answer simple straightforward questions was difficult to arouse earlier, refusing to eat breakfast,breathing is improved, no cough afebrile. local dressing changes to bilateral lower extremities. Continues to have some weakness, refuses to work with physical therapy, states she doesn't need physical therapy and wants to go home. last BM. 10/24/2017. 10/25/2017: Lying in bed resting quietly however very sleepy, difficult to arouse, breathing much improved. Mucous membranes noted to be very dry, patient's not really eating very much between 20 and 30% of her breakfast. Last BM 2017. 10/24/2017: Patient lying in bed appears comfortable yet somewhat sleepy breathing is improving. States she wants to set up in a chair. Tolerates her diet eating about 75% of each meal. Last bowel movement 10/24/2017, encourage patient to work with physical therapy, stated she did want to, explained the importance of her working with them so she can go home. 10/23/2017: Patient lying in bed appears comfortable yet somewhat sleepy. Breathing is much improved. States she does feel tired and weak. Tolerating her diet eating about 75% of each meal. Last bowel movement 10/23/2017. Guardianship successfully obtained through the court system today, patient refusing to work with physical therapy. 10/22/2017: Patient lying in bed appears comfortable. Breathing is improved. States she still feels fairly tired and weak. Tolerating her diet eating about 50% of her meals. Last bowel movement prior to admission. REVIEW OF SYSTEMS: Done for constitutional ,cardiovascular, GI, pulmonary with relevant findings as above. CURRENT MEDICATIONS Acetaminophen, [place], DuoNeb,Diamox , Dulcolax,Keflex, Cipro, Lasix, Toprol-XL 50 g by mouth daily, senna, PHYSICAL EXAM VITAL SIGNS: 97.6, pulse 69, respiratory rate 20, blood pressure 120/68, oxygen saturation 98 % on 3 L. GENERAL APPEARANCE: Lying in bed, not in distress. HEENT: Normocephalic, Pupils equal. Conjunctiva normal. JVD not raised. Mass not palpable, Some dryness noted to the oropharynx and tongue RESPIRATORY: Respiratory effort increased. Lungs diminished to auscultation. CARDIOVASCULAR: First and second sounds normal. mild edema, Wei wraps in place ABDOMEN: Soft. Liver and spleen not palpable. No tenderness. No mass palpable. PSYCHIATRY: able to answer some simple straightforward questions however is willful at times and will not open her eyes. Mood and affect somewhat confused. INTEGUMENT: Bilateral lower extremities red warm erythematic tender to palpation INVESTIGATIONS: LABS: Chloride 96, cardiac site 34, BUN 29, ASSESSMENT: -Acute on chronic diastolic congestive heart failure, in a patient with an EF of 55-60%, improving -Acute bilateral lower extremity venous stasis ulcers with secondary cellulitis , slow to respond -acute metabolic encephalopathy from severe volume contraction causing metabolic alkalosis, improving -Chronic kidney disease stage III, likely due to hypertensive nephrosclerosis -Chronic obstructive pulmonary disease in an ex-smoker. -Essential hypertension. -Secondary pulmonary hypertension -Moderate tricuspid regurgitation nonrheumatic -Primary osteoarthritis of multiple joints bilateral. -Chronic gait dysfunction uses a walker. PLAN: Continue daily weights encourage oral intake. continue IV antibiotic therapy with Augmentin and Cipro, local wound care with Aquacel Silver and Wei wraps per infectious disease. Discharge planning for an adult foster care, patient has a court-appointed guardianand social work working with them. Plan of care discussed at the bedside we'll follow closely. STATISTICS TEACHER statement: Patient was seen and examined by nurse practitioner Cori Landry and all elements of the case discussed with attending Dr. Dc
[2017-10-28] MEDS: BISACODYL 10 MG SUPP RECTAL SCH (21:04)
[2017-10-29] MEDS: FUROSEMIDE 40 MG TAB PO SCH (08:10)
[2017-10-29] MEDS: AMOXIC-POT CLAV 875-125MG 1 EACH TAB PO SCH ×2 (08:10→20:28)
[2017-10-29] MEDS: POTASSIUM CITRATE 10 MEQ TABLET.ER PO SCH (08:10)
[2017-10-29] MEDS: LISINOPRIL-HCTZ 10-12.5 MG 1 EACH TAB PO SCH (08:10)
[2017-10-29] MEDS: CIPROFLOXACIN HCL 500 MG TAB PO SCH ×2 (08:10→20:28)
[2017-10-29] MEDS: METOPROLOL SUCCINATE (ER) 50 MG TAB.ER.24H PO SCH (08:10)
[2017-10-29] MEDS: acetaZOLAMIDE 250 MG TAB PO SCH ×2 (08:10→20:28)
[2017-10-29] MEDS: SENNOSIDES 8.6 MG TAB PO SCH ×2 (08:10→20:28)
[2017-10-29] MEDS: HEPARIN SODIUM,PORCINE 5,000 UNIT/ML 1 ML VIAL SQ SCH ×2 (08:10→20:28)
[2017-10-29 15:55] LABS: Glucose,Whole Blood 95 mg/dL (75-99)
--- NOTE | 2017-10-29 16:13 | PN ---
PROGRESS NOTE DATE OF SERVICE: 10/29/2017 REASON FOR FOLLOWUP: Bilateral lower extremity venostasis ulcers and cellulitis. INTERVAL HISTORY: The patient is afebrile. She is currently breathing comfortably and waiting for placement. She does not seem to be in any distress. No worsening swelling or redness of the legs has been noticed ,rather improvement. No diarrhea per the nursing staff. PHYSICAL EXAMINATION: Blood pressure 110/71 with a pulse of 95, temperature 97.6. She is 93% on 4 L nasal cannula. General description is an elderly female lying in bed in no distress. RESPIRATORY SYSTEM: Unlabored breathing. Clear to auscultation anteriorly. HEART: S1, S2. Regular rate and rhythm. ABDOMEN: Soft. No tenderness. LEGS: Swelling persists but the redness has decreased. No drainage on the dressing. LABS: BUN of 29, creatinine 0.90. DIAGNOSTIC IMPRESSION AND PLAN: Patient with bilateral lower extremity venostasis ulcers and secondary cellulitis with multiple pathogens grown on the superficial culture. She is currently on oral Augmentin and Cipro. That should continue for about a week. Local wound care with Aquacel Silver. Continue with supportive care. MMODL / IJN: [id number] / MT
--- NOTE | 2017-10-29 17:58 | CONS ---
CONSULTATION DATE OF SERVICE: 10/29/2017. PURPOSE OF CONSULTATION: Evaluate for altered mental status. HISTORY OF PRESENT ILLNESS: The patient was admitted on October 18 for shortness of breath. She has a history of COPD, hypertension and DJD. The patient was not able to provide any history. Records indicate that she was not on any psychotropic medications prior to admission. Whether or not there are any significant past psychiatric issues is clear. According to nursing, the patient has been quite tired. She naps on and off. She often will seem to withdrawal when staff work with her and not making effort to respond. She may lay there and simply close her eyes in a somewhat half sleep state. It is noteworthy that adult protective services have been involved due to questionable care that had been provided by the paid staff. She is being considered for a referral for court-appointed guardian. She continues with generalized weakness. She apparently is being considered for care facility placement. She is not currently prescribed any psychotropic medications, though she does receive [place]ley as a p.r.n. MENTAL STATUS: The patient was lying in bed. When I tried to ask her questions she would intermittently open her eyes and look at me. She might say 1 or 2 words and then very quickly would close her eyes again and just roll her head in a straight forward gaze. She did this several times. She did not really provide any information. It is noteworthy that she said that her appetite was not good. Her meal was there, though she appeared to have made no effort to eat. ASSESSMENT: At this point, it is not clear that there is an indication for any immediate psychiatric intervention whether or not there might be underlying depression causing her to have poor motivation and low energy remains to be seen. If she is placed in a care facility, there might be consideration for starting an antidepressant. I would consider something like Prozac 20 mg a day as something appropriate. There is a high likelihood that her infection may have contributed to some altered mental status though it is not clear that these affects continue at the present time. I will continue to follow while the patient is in the hospital. MMKATHRYNL / DELANEYN: [id number] /
--- NOTE | 2017-10-29 18:35 | P.PN ---
Progress Note - Text Progress Note Date: 10/29/17 DATE OF SERVICE: 10/30/2017 PRESENTING COMPLAINT: Short of breath and weakness HISTORY OF PRESENT ILLNESS: 77-year-old female admitted with generalized weakness and tiredness as well as shortness of breath. Adult Protective Services involved with the patient with some care issues, patient's neighbor has been receiving monies from the patient to provide care, however patient has not been properly care for. Patient will likely need a court-appointed guardian. INTERVAL HISTORY: 10/29/2017: Lying in bed today she is refusing to answer some straightforward questions would not initially open her eyes when I was there. Some wheezing noted but able to breathing easily, nasal cannula in place. No cough, afebrile, bilateral dressings to the lower extremities, some weakness. Does not agree to work with physical therapy. Currently has a court appointed guardian, has a son who lives in [place] and will be in town soon to be involved in her care. Eating between 0-30% of her meals, refusing to eat today's lunch. Patient is a max assist to move from bed to chair. 10/28/2017: Lying in bed able to answer simple straightforward questions, would not initially open her eyes for me.oxygen remains in place, breathing easily. No cough afebrile but will dressing changes to bilateral lower extremities has some weakness. Not Agreeable to work with physical therapy,social work is working with a appointed guardian, son who lives in [place] regarding placement.needs supervision for meals, will eat some between 30 and 50%,maximum assist to move patient around and get her into a chair. Last BM10/27/2017 10/27/2017: Lying in bed able to answer simple straightforward questions, is not always very cooperative. Breathing is easy, oxygen delivery via nasal cannula 3 L, no cough, afebrile, local dressing changes to bilateral lower extremities. Has some weakness, not agreeable to work with physical therapy, will likely have to be discharged to adult foster custodial as she is not cooperative enough to be sent to rehabilitation 10/26/2017: Lying in bed able to answer simple straightforward questions was difficult to arouse earlier, refusing to eat breakfast,breathing is improved, no cough afebrile. local dressing changes to bilateral lower extremities. Continues to have some weakness, refuses to work with physical therapy, states she doesn't need physical therapy and wants to go home. last BM. 10/24/2017. 10/25/2017: Lying in bed resting quietly however very sleepy, difficult to arouse, breathing much improved. Mucous membranes noted to be very dry, patient's not really eating very much between 20 and 30% of her breakfast. Last BM 2017. 10/24/2017: Patient lying in bed appears comfortable yet somewhat sleepy breathing is improving. States she wants to set up in a chair. Tolerates her diet eating about 75% of each meal. Last bowel movement 10/24/2017, encourage patient to work with physical therapy, stated she did want to, explained the importance of her working with them so she can go home. 10/23/2017: Patient lying in bed appears comfortable yet somewhat sleepy. Breathing is much improved. States she does feel tired and weak. Tolerating her diet eating about 75% of each meal. Last bowel movement 10/23/2017. Guardianship successfully obtained through the court system today, patient refusing to work with physical therapy. 10/22/2017: Patient lying in bed appears comfortable. Breathing is improved. States she still feels fairly tired and weak. Tolerating her diet eating about 50% of her meals. Last bowel movement prior to admission. REVIEW OF SYSTEMS: Done for constitutional ,cardiovascular, GI, pulmonary with relevant findings as above. CURRENT MEDICATIONS Acetaminophen, [place], DuoNeb,Diamox , Dulcolax,Keflex, Cipro, Lasix, Toprol-XL 50 g by mouth daily, senna, PHYSICAL EXAM VITAL SIGNS: Temperature 97.6, pulse 95, respiratory rate 18, blood pressure 110/71, oxygen saturation 96% on 4 L GENERAL APPEARANCE: Lying in bed, not in distress. HEENT: Normocephalic, Pupils equal. Conjunctiva normal. JVD not raised. Mass not palpable, Some dryness noted to the oropharynx and tongue RESPIRATORY: Respiratory effort increased. Lungs diminished to auscultation. CARDIOVASCULAR: First and second sounds normal. mild edema, Wei wraps in place ABDOMEN: Soft. Liver and spleen not palpable. No tenderness. No mass palpable. PSYCHIATRY: able to answer some simple straightforward questions however is willful at times and will not open her eyes. Mood and affect somewhat confused. 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 -Essential hypertension. -Secondary pulmonary hypertension -Moderate tricuspid regurgitation nonrheumatic -Primary osteoarthritis of multiple joints bilateral. -Chronic gait dysfunction uses a walker. PLAN: Psychiatry recommends possibly initiating an antidepressant if she ends up in a care facility. Continue daily weights encourage oral intake. continue IV antibiotic therapy with Augmentin and Cipro, local wound care with Aquacel Silver and Wei wraps per infectious disease. Discharge planning unclear at this time as patient's son is coming in from [place] to apply for guardianship and further decisions will be made once he arrives as to where she'll go. Plan of care discussed at the bedside we'll follow closely. TELEPHONE INSTALLER statement: Patient was seen and examined by nurse practitioner Cori Landry and all elements of the case discussed with attending Dr. Dc
[2017-10-29] MEDS: BISACODYL 10 MG SUPP RECTAL SCH (20:28)
--- NOTE | 2017-10-29 23:34 | PN ---
PROGRESS NOTE DATE OF SERVICE: 10/29/2017. ATTENDING NOTE: Patient was seen and examined by me. I discussed with my nurse practitioner, Ms. Landry. The patient has a court-appointed guardian, awaiting placement. Eats only intermittently, small amounts. EXAMINATION: Temperature 97.8 pulse 80, respirations 20, blood pressure 132/88, pulse ox 98% on 4L. Lethargic, but arousable. Mouth is a bit dry. Potassium 4.3, bicarb 34. The labs are from 3 days ago. ASSESSMENT: 1. Chronic congestive heart failure, stable. 2. Metabolic encephalopathy, could be probably from volume contraction. PLAN: Will change the patient's Lasix to every other day, as oral intake is rather limited. Awaiting placement. MMODL / IJN: [id number] /
[2017-10-30] MEDS: CIPROFLOXACIN HCL 500 MG TAB PO SCH ×2 (08:15→21:09)
[2017-10-30] MEDS: SENNOSIDES 8.6 MG TAB PO SCH ×2 (08:15→21:11)
[2017-10-30] MEDS: LISINOPRIL-HCTZ 10-12.5 MG 1 EACH TAB PO SCH (08:15)
[2017-10-30] MEDS: POTASSIUM CITRATE 10 MEQ TABLET.ER PO SCH (08:15)
[2017-10-30] MEDS: METOPROLOL SUCCINATE (ER) 50 MG TAB.ER.24H PO SCH (08:15)
[2017-10-30] MEDS: AMOXIC-POT CLAV 875-125MG 1 EACH TAB PO SCH ×2 (08:15→21:11)
[2017-10-30] MEDS: HEPARIN SODIUM,PORCINE 5,000 UNIT/ML 1 ML VIAL SQ SCH ×2 (08:15→21:11)
[2017-10-30] MEDS: acetaZOLAMIDE 250 MG TAB PO SCH ×2 (08:16→21:14)
[2017-10-30 08:53] LABS: Anion Gap 7 mmol/L; Blood Urea Nitrogen 29 mg/dL (7-17); Calcium 9.9 mg/dL (8.4-10.2); Carbon Dioxide 37 mmol/L (22-30); Chloride 96 mmol/L (98-107); Glucose 85 mg/dL (74-99); Potassium 3.9 mmol/L (3.5-5.1); Sodium 140 mmol/L (137-145)
--- NOTE | 2017-10-30 16:35 | PN ---
PROGRESS NOTE DATE OF SERVICE: 10/30/2017. REASON FOR FOLLOWUP: Right lower extremity cellulitis and venous stasis ulcer. INTERVAL HISTORY: The patient is afebrile. She is up in the chair. Did remain to be lethargic. No nausea or vomiting has been noticed or any diarrhea. EXAMINATION: Blood pressure 124/55 with a pulse of 70, temperature 98.5. She is 94% on 4 L nasal cannula. General description is an elderly female up in the chair in no distress. Respiratory system unlabored breathing, clear to auscultation anteriorly. Heart S1, S2. Regular rate and rhythm. ABDOMEN: Soft, nontender. Bilateral leg swelling and redness is improved. No drainage on the dressing. LABS: BUN of 29, creatinine 0.90. DIAGNOSTIC IMPRESSION AND PLAN: Patient with bilateral lower extremity venous stasis ulcer secondary cellulitis. The patient currently on oral Augmentin and Cipro which should continue for about a week along with a course of Aquacel silver dressing to the leg to keep the swelling down. MMODL / IJN: [id number] / [place]
[2017-10-30] MEDS ORDERED: METHYLPHENIDATE HCL 5 MG TAB PO ONE (16:42)
--- NOTE | 2017-10-30 17:08 | CONS ---
CONSULTATION DATE OF SERVICE: 10/30/2017. PURPOSE OF CONSULTATION: Evaluate for altered mental status. INTERVAL HISTORY: Patient has been doing fair. Overall she continues about the same. She had a quiet evening last night. She slept fairly well. Today she has been up. She naps on and off. She responds some of the time to staff and other times not. She may be in the middle of some care issues and some of the time she may respond and answer questions that staff ask and then as easily she may also simply close her eyes and not make any effort to respond. She has not had any significant behavior issues. She has been generally cooperative with care. She is not currently on any psychotropic medications. When I saw the patient today she was sitting up in a chair. She again had her eyes closed. She would open her eyes a little bit when I asked her some questions, though again she barely said anything and would close her eyes soon after she opened them. She had a quiet manner. She did not appear to be distressed. At this point, there is little to do from a psychiatric standpoint. Whether or not she might benefit from an antidepressant is uncertain. It might be reasonable to consider a trial with Ritalin, which can show some fairly rapid onset of benefits in depression for a patient that has significant medical complications. I will review this further with Nursing and consider a trial. MMODL / IJN: [id number] /
--- NOTE | 2017-10-30 19:35 | P.PN ---
Progress Note - Text Progress Note Date: 10/30/17 DATE OF SERVICE: 10/30/2017 PRESENTING COMPLAINT: Short of breath and weakness HISTORY OF PRESENT ILLNESS: 77-year-old female admitted with generalized weakness and tiredness as well as shortness of breath. Adult Protective Services involved with the patient with some care issues, patient's neighbor has been receiving monies from the patient to provide care, however patient has not been properly care for. Patient will likely need a court-appointed guardian. INTERVAL HISTORY: 10/30/2017: Lying in bed she was more cooperative today answered some straightforward questions, patient states she did eat her breakfast. Afebrile, vital signs stable Breathing easily, nasal cannula in place some wheezing noted. Bilateral lower extremity venous stasis ulcers continue to receive local wound care and antibiotic therapy per ID. No cough, afebrile, bilateral dressings to the lower extremities in place. Has some weakness. He ate about 30-40% of her breakfast. Patient was encouraged to get up out of bed for lunch. Psychiatry reevaluated the patient today. Is a max assist. 10/29/2017: Lying in bed today she is refusing to answer some straightforward questions would not initially open her eyes when I was there. Some wheezing noted but able to breathing easily, nasal cannula in place. No cough, afebrile, bilateral dressings to the lower extremities, some weakness. Does not agree to work with physical therapy. Currently has a court appointed guardian, has a son who lives in [place] and will be in town soon to be involved in her care. Eating between 0-30% of her meals, refusing to eat today's lunch. Patient is a max assist to move from bed to chair. 10/28/2017: Lying in bed able to answer simple straightforward questions, would not initially open her eyes for me.oxygen remains in place, breathing easily. No cough afebrile bilateral dressing changes to bilateral lower extremities has some weakness. Not Agreeable to work with physical therapy,social work is working with a appointed guardian, son who lives in [place] regarding placement.needs supervision for meals, will eat some between 30 and 50%,maximum assist to move patient around and get her into a chair. Last BM10/27/2017 10/27/2017: Lying in bed able to answer simple straightforward questions, is not always very cooperative. Breathing is easy, oxygen delivery via nasal cannula 3 L, no cough, afebrile, local dressing changes to bilateral lower extremities. Has some weakness, not agreeable to work with physical therapy, will likely have to be discharged to adult foster residential as she is not cooperative enough to be sent to rehabilitation 10/26/2017: Lying in bed able to answer simple straightforward questions was difficult to arouse earlier, refusing to eat breakfast,breathing is improved, no cough afebrile. local dressing changes to bilateral lower extremities. Continues to have some weakness, refuses to work with physical therapy, states she doesn't need physical therapy and wants to go home. last BM. 10/24/2017. 10/25/2017: Lying in bed resting quietly however very sleepy, difficult to arouse, breathing much improved. Mucous membranes noted to be very dry, patient's not really eating very much between 20 and 30% of her breakfast. Last BM 2017. 10/24/2017: Patient lying in bed appears comfortable yet somewhat sleepy breathing is improving. States she wants to set up in a chair. Tolerates her diet eating about 75% of each meal. Last bowel movement 10/24/2017, encourage patient to work with physical therapy, stated she did want to, explained the importance of her working with them so she can go home. 10/23/2017: Patient lying in bed appears comfortable yet somewhat sleepy. Breathing is much improved. States she does feel tired and weak. Tolerating her diet eating about 75% of each meal. Last bowel movement 10/23/2017. Guardianship successfully obtained through the court system today, patient refusing to work with physical therapy. 10/22/2017: Patient lying in bed appears comfortable. Breathing is improved. States she still feels fairly tired and weak. Tolerating her diet eating about 50% of her meals. Last bowel movement prior to admission. REVIEW OF SYSTEMS: Done for constitutional ,cardiovascular, GI, pulmonary with relevant findings as above. CURRENT MEDICATIONS Acetaminophen, [place], DuoNeb,Diamox , Dulcolax,Keflex, Cipro, Lasix, Zestoretic , Toprol-XL 50 g by mouth daily, senna, PHYSICAL EXAM VITAL SIGNS: Temperature 98.3, pulse 82, respiratory rate 18, blood pressure 130/86, oxygen saturation 97% on 4 L. GENERAL APPEARANCE: Lying in bed, not in distress. HEENT: Normocephalic, Pupils equal. Conjunctiva normal. JVD not raised. Mass not palpable, Some dryness noted to the oropharynx and tongue RESPIRATORY: Respiratory effort increased. Lungs diminished to auscultation. CARDIOVASCULAR: First and second sounds normal. mild edema, Wei wraps in place ABDOMEN: Soft. Liver and spleen not palpable. No tenderness. No mass palpable. PSYCHIATRY: able to answer some simple straightforward questions however is willful at times and will not open her eyes. Mood and affect somewhat confused. INTEGUMENT: Bilateral lower extremities red warm erythematic tender to palpation , dressings in place INVESTIGATIONS: LABS: Chloride 96, carbon dioxide 37, BUN 29. 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 -Essential hypertension. -Secondary pulmonary hypertension -Moderate tricuspid regurgitation nonrheumatic -Primary osteoarthritis of multiple joints bilateral. -Chronic gait dysfunction uses a walker. PLAN: Psychiatry recommends a trial of methylphenidate. Continue daily weights encourage oral intake. continue IV antibiotic therapy with Augmentin and Cipro, local wound care with Aquacel Silver and Wei wraps per infectious disease. Lasix every other day. Discharge planning unclear at this time as patient's son is coming in from [place] to apply for guardianship and further decisions will be made once he arrives as to where she'll go. Plan of care discussed at the bedside we'll follow closely. WOOL SPOTTER statement: Patient was seen and examined by nurse practitioner Cori Landry and all elements of the case discussed with attending Dr. Dc
[2017-10-30] MEDS: BISACODYL 10 MG SUPP RECTAL SCH (21:12)
--- NOTE | 2017-10-30 22:26 | PN ---
PROGRESS NOTE DATE OF SERVICE: 10/30/2017 ATTENDING NOTE: This patient was seen and examined by me. I discussed the case with the nurse practitioner Ms. Landry. Patient remains tired. Eating some amounts. Awaiting placement. commissary worker is involved. PHYSICAL EXAMINATION: Temperature 98.5, pulse 93, blood pressure 112/65, pulse ox 94% on 4 L. Lethargic but arousable. Does answer simple questions. LUNGS: Decreased breath sounds. Potassium 3.9. BUN 29, bicarb 37. ASSESSMENT: 1. Congestive heart failure, stable. 2. Metabolic encephalopathy. PLAN: Continue current medication and treatment plan. Spoke to Thang, nurse in charge from Case [facility] looking into placement. Son is flying in to get guardianship. MMODL / IJN: [id number] /
[2017-10-31] MEDS: acetaZOLAMIDE 250 MG TAB PO SCH ×2 (08:00→20:41)
[2017-10-31] MEDS ORDERED: FUROSEMIDE 40 MG TAB PO SCH (08:00)
[2017-10-31] MEDS: AMOXIC-POT CLAV 875-125MG 1 EACH TAB PO SCH ×2 (08:00→20:41)
[2017-10-31] MEDS: LISINOPRIL-HCTZ 10-12.5 MG 1 EACH TAB PO SCH (08:00)
[2017-10-31] MEDS: METOPROLOL SUCCINATE (ER) 50 MG TAB.ER.24H PO SCH (08:00)
[2017-10-31] MEDS: HEPARIN SODIUM,PORCINE 5,000 UNIT/ML 1 ML VIAL SQ SCH ×2 (08:00→20:41)
[2017-10-31] MEDS: CIPROFLOXACIN HCL 500 MG TAB PO SCH ×2 (08:00→20:41)
[2017-10-31] MEDS: SENNOSIDES 8.6 MG TAB PO SCH ×2 (08:01→20:41)
[2017-10-31] MEDS: POTASSIUM CITRATE 10 MEQ TABLET.ER PO SCH (08:01)
[2017-10-31 08:33] LABS: Anion Gap 6 mmol/L; Blood Urea Nitrogen 28 mg/dL (7-17); Calcium 9.6 mg/dL (8.4-10.2); Carbon Dioxide 33 mmol/L (22-30); Chloride 97 mmol/L (98-107); Glucose 85 mg/dL (74-99); Sodium 136 mmol/L (137-145)
--- NOTE | 2017-10-31 19:45 | PN ---
PROGRESS NOTE DATE OF SERVICE: 10/31/2017 ATTENDING NOTE: The patient seen and examined by me. I discussed with my nurse practitioner, Raffyrosa. The patient is a bit more awake, eating somewhat better, awaiting placement. EXAMINATION: Afebrile, pulse 73, respirations 20, blood pressure 113/65, pulse ox 96% on room air. Oral cavity: Dry mucous membranes. Does answer questions, though lethargic. LUNGS: Decreased breath sounds. ASSESSMENT: Chronic congestive heart failure, stabilized. Clinically appears to be a bit dry. PLAN: The patient is already on Lasix every other day. Will hydrate the patient, go a total of 2 L of fluid. Awaiting placement. MMODL / IJN: [id number] /
--- NOTE | 2017-10-31 20:35 | P.PN ---
Progress Note - Text Progress Note Date: 10/31/17 DATE OF SERVICE: 10/31/2017 PRESENTING COMPLAINT: Short of breath and weakness HISTORY OF PRESENT ILLNESS: 77-year-old female admitted with generalized weakness and tiredness as well as shortness of breath. Adult Protective Services involved with the patient with some care issues, patient's neighbor has been receiving monies from the patient to provide care, however patient has not been properly care for. Patient will likely need a court-appointed guardian. INTERVAL HISTORY: 10/31/2017: Lying in bed, opens her eyes when I call her name. Willing to answer my questions, states she is eating okay, ate about 25% of her breakfast. Last BM 10/30/2017. Bilateral lower extremities continue to have Aquasol Silver and Curlex wraps. Stated that she was just wants to go home, doesn't want people running her life. Encouraged patient to get up in the chair when she was asked to get up, and participating in activities for her to gain strength we'll get her home sooner. 10/30/2017: Lying in bed she was more cooperative today answered some straightforward questions, patient states she did eat her breakfast. Afebrile, vital signs stable Breathing easily, nasal cannula in place some wheezing noted. Bilateral lower extremity venous stasis ulcers continue to receive local wound care and antibiotic therapy per ID. No cough, afebrile, bilateral dressings to the lower extremities in place. Has some weakness. He ate about 30-40% of her breakfast. Patient was encouraged to get up out of bed for lunch. Psychiatry reevaluated the patient today. Is a max assist. 10/29/2017: Lying in bed today she is refusing to answer some straightforward questions would not initially open her eyes when I was there. Some wheezing noted but able to breathing easily, nasal cannula in place. No cough, afebrile, bilateral dressings to the lower extremities, some weakness. Does not agree to work with physical therapy. Currently has a court appointed guardian, has a son who lives in [place] and will be in town soon to be involved in her care. Eating between 0-30% of her meals, refusing to eat today's lunch. Patient is a max assist to move from bed to chair. 10/28/2017: Lying in bed able to answer simple straightforward questions, would not initially open her eyes for me.oxygen remains in place, breathing easily. No cough afebrile bilateral dressing changes to bilateral lower extremities has some weakness. Not Agreeable to work with physical therapy,social work is working with a appointed guardian, son who lives in [place] regarding placement.needs supervision for meals, will eat some between 30 and 50%,maximum assist to move patient around and get her into a chair. Last BM10/27/2017 10/27/2017: Lying in bed able to answer simple straightforward questions, is not always very cooperative. Breathing is easy, oxygen delivery via nasal cannula 3 L, no cough, afebrile, local dressing changes to bilateral lower extremities. Has some weakness, not agreeable to work with physical therapy, will likely have to be discharged to adult foster longterm as she is not cooperative enough to be sent to rehabilitation 10/26/2017: Lying in bed able to answer simple straightforward questions was difficult to arouse earlier, refusing to eat breakfast,breathing is improved, no cough afebrile. local dressing changes to bilateral lower extremities. Continues to have some weakness, refuses to work with physical therapy, states she doesn't need physical therapy and wants to go home. last BM. 10/24/2017. 10/25/2017: Lying in bed resting quietly however very sleepy, difficult to arouse, breathing much improved. Mucous membranes noted to be very dry, patient's not really eating very much between 20 and 30% of her breakfast. Last BM 2017. 10/24/2017: Patient lying in bed appears comfortable yet somewhat sleepy breathing is improving. States she wants to set up in a chair. Tolerates her diet eating about 75% of each meal. Last bowel movement 10/24/2017, encourage patient to work with physical therapy, stated she did want to, explained the importance of her working with them so she can go home. 10/23/2017: Patient lying in bed appears comfortable yet somewhat sleepy. Breathing is much improved. States she does feel tired and weak. Tolerating her diet eating about 75% of each meal. Last bowel movement 10/23/2017. Guardianship successfully obtained through the court system today, patient refusing to work with physical therapy. 10/22/2017: Patient lying in bed appears comfortable. Breathing is improved. States she still feels fairly tired and weak. Tolerating her diet eating about 50% of her meals. Last bowel movement prior to admission. REVIEW OF SYSTEMS: Done for constitutional ,cardiovascular, GI, pulmonary with relevant findings as above. CURRENT MEDICATIONS Acetaminophen, [place], DuoNeb,Diamox , Dulcolax,Keflex, Cipro, Lasix, Zestoretic , Toprol-XL 50 g by mouth daily, senna, PHYSICAL EXAM VITAL SIGNS: Temperature 97.5, pulse 73, respiratory rate 16, blood pressure 123/88, oxygen saturation 97% on 3 L. GENERAL APPEARANCE: Lying in bed, not in distress. HEENT: Normocephalic, Pupils equal. Conjunctiva normal. JVD not raised. Mass not palpable, Some dryness noted to the oropharynx and tongue RESPIRATORY: Respiratory effort increased. Lungs diminished to auscultation. CARDIOVASCULAR: First and second sounds normal. mild edema, Curlex wraps in place ABDOMEN: Soft. Liver and spleen not palpable. No tenderness. No mass palpable. PSYCHIATRY: able to answer some simple straightforward questions however is willful at times and will not open her eyes. Mood and affect somewhat confused. INTEGUMENT: Bilateral lower extremities red warm erythematic tender to palpation , dressings in place, Aquasol Silver and Curlex. INVESTIGATIONS: LABS: Sodium 136, potassium 4.0, chloride 97, cardiac side 33, BUN 28, creatinine 0.87. 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 -Essential hypertension. -Secondary pulmonary hypertension -Moderate tricuspid regurgitation nonrheumatic -Primary osteoarthritis of multiple joints bilateral. -Chronic gait dysfunction uses a walker. PLAN: Continue daily weights encourage oral intake. continue IV antibiotic therapy with Augmentin and Cipro, local wound care with Aquacel Silver and Curlex wraps per infectious disease. Lasix every other day. IV fluids added at 50 mL's an hour for a total of 2 L. Discharge planning unclear at this time as patient's son is coming in from [place] to apply for guardianship and further decisions will be made once he arrives as to where she'll go. Plan of care discussed at the bedside we'll follow closely. RESORT DESK CLERK statement: Patient was seen and examined by nurse practitioner Cori Landry and all elements of the case discussed with attending Dr. Dc
[2017-10-31] MEDS: BISACODYL 10 MG SUPP RECTAL SCH (20:41)
[2017-10-31] MEDS: SODIUM CHLORIDE 0.9% 1,000 ML IV SCH (20:48)
--- NOTE | 2017-10-31 23:09 | CONS ---
CONSULTATION DATE OF CONSULTATION: 10/31/2017. PURPOSE FOR CONSULTATION: Evaluate for altered mental status. INTERVAL HISTORY: It is noted that over several days of her admission, she was minimally responsive. She would lay with her eyes closed. When staff would talk to her, she might open her eyes momentarily and then close them again. It was not totally clear whether this was a voluntary thing or not. I started her yesterday on Ritalin 5 mg twice a day. Staff noted that she seemed to show improvement. She was a little more awake more of the time. She could communicate better. By mid afternoon, she began to fade and then get back into her manner of being more lethargic and disconnected. I reviewed the case with Dr. Dc, who noted that she seemed to be doing better, where she was more awake. She was eating somewhat better. Placement was an issue. When I saw the patient, it was in the evening and she again could open her eyes for a brief periods and then would close them again. I will increase her Ritalin to 10 mg in the morning, 5 mg at 1:00 p.m. I will continue to follow. I will try to see the patient earlier in the day to help better assess her state. It is noted that Ritalin can be helpful for persons with complicated medical issues and question of depression. Response to Ritalin for depression can be a fairly rapid onset and also there is the safety mechanism in that the half-life is very short, a matter of several hours, so if she were to develop any complications, the medication reduces risks quite quickly. On the other hand, even though it has a short half-life for treatment of depression, it is usually not necessary to have doses throughout the day and typically 2 doses a day is sufficient. It would not be unreasonable to look to titrate up to 20 mg in the morning and 10 mg in the afternoon, though I would do that in a stepwise fashion. I will continue to follow. MMODL / IJN: [id number] /
[2017-11-01] MEDS: HEPARIN SODIUM,PORCINE 5,000 UNIT/ML 1 ML VIAL SQ SCH ×2 (07:51→21:58)
[2017-11-01] MEDS: CIPROFLOXACIN HCL 500 MG TAB PO SCH ×2 (07:52→21:58)
[2017-11-01] MEDS: METHYLPHENIDATE HCL 10 MG TAB PO SCH (07:52)
[2017-11-01] MEDS: METOPROLOL SUCCINATE (ER) 50 MG TAB.ER.24H PO SCH (07:52)
[2017-11-01] MEDS: AMOXIC-POT CLAV 875-125MG 1 EACH TAB PO SCH ×2 (07:52→21:58)
[2017-11-01] MEDS: acetaZOLAMIDE 250 MG TAB PO SCH ×2 (07:52→21:58)
[2017-11-01] MEDS: SENNOSIDES 8.6 MG TAB PO SCH ×2 (07:52→21:58)
[2017-11-01] MEDS: LISINOPRIL-HCTZ 10-12.5 MG 1 EACH TAB PO SCH (07:52)
[2017-11-01] MEDS: POTASSIUM CITRATE 10 MEQ TABLET.ER PO SCH (07:52)
[2017-11-01 09:39] LABS: Anion Gap 7 mmol/L; Blood Urea Nitrogen 23 mg/dL (7-17); Calcium 9.7 mg/dL (8.4-10.2); Carbon Dioxide 35 mmol/L (22-30); Chloride 96 mmol/L (98-107); Glucose 105 mg/dL (74-99); Sodium 138 mmol/L (137-145)
[2017-11-01] MEDS: METHYLPHENIDATE HCL 5 MG TAB PO SCH (16:15)
[2017-11-01] MEDS: SODIUM CHLORIDE 0.9% 1,000 ML IV SCH (16:20)
--- NOTE | 2017-11-01 17:19 | CONS ---
CONSULTATION PSYCHIATRIC CONSULTATION: DATE OF SERVICE: 11/01/2017. PURPOSE FOR CONSULTATION: Evaluate for altered mental status. INTERVAL HISTORY: Patient has been doing fairly well. She had a quiet evening last night. She slept well. Staff note that this morning she seemed to be back into a more withdrawn manner. In the afternoon, however, she has been more responsive. I saw her about 4 in the afternoon. Her neighbor was visiting and giving her an update on her home situation. He said that this is the most she has spoken in 2 weeks. The patient herself was awake. She gave me good eye contact. She said a few things. She did not say a lot, though she was more connected to her current situation. She had a calm manner. At this point, I will continue with Ritalin 10 mg in the morning, 5 mg at supper. I will continue to follow. We could look at possibly titrating up on her Ritalin, though she does seem to be showing the reasonable response to her medication. MMODL / DELANEYN: [id number] /
--- NOTE | 2017-11-01 20:42 | P.PN ---
Progress Note - Text Progress Note Date: 11/01/17 DATE OF SERVICE: 11/01/2017 PRESENTING COMPLAINT: Short of breath and weakness HISTORY OF PRESENT ILLNESS: 77-year-old female admitted with generalized weakness and tiredness as well as shortness of breath. Adult Protective Services involved with the patient with some care issues, patient's neighbor has been receiving monies from the patient to provide care, however patient has not been properly care for. Patient will likely need a court-appointed guardian. INTERVAL HISTORY: 11/01/2017: Lying in bed, awake and answers all my questions. Afebrile vital signs are stable breathing easily, nasal cannula place. Bilateral lower extremity venous stasis ulcers continue to receive local wound care and antibiotic therapy per ID. States that she eats okay, charting done by staff shows that she is not eating. IV fluids currently running. Good response from patient regarding Ritalin, she's more responsive and more calm. Continue to encourage patient to get up in the chair and participate in activities. 10/31/2017: Lying in bed, opens her eyes when I call her name. Willing to answer my questions, states she is eating okay, ate about 25% of her breakfast. Last BM 10/30/2017. Bilateral lower extremities continue to have Aquasol Silver and Curlex wraps. Stated that she was just wants to go home, doesn't want people running her life. Psychiatry initiated a trial of Ritalin. Encouraged patient to get up in the chair when she was asked to get up, and participating in activities for her to gain strength we'll get her home sooner. 10/30/2017: Lying in bed she was more cooperative today answered some straightforward questions, patient states she did eat her breakfast. Afebrile, vital signs stable Breathing easily, nasal cannula in place some wheezing noted. Bilateral lower extremity venous stasis ulcers continue to receive local wound care and antibiotic therapy per ID. No cough, afebrile, bilateral dressings to the lower extremities in place. Has some weakness. He ate about 30-40% of her breakfast. Patient was encouraged to get up out of bed for lunch. Psychiatry reevaluated the patient today. Is a max assist. 10/29/2017: Lying in bed today she is refusing to answer some straightforward questions would not initially open her eyes when I was there. Some wheezing noted but able to breathing easily, nasal cannula in place. No cough, afebrile, bilateral dressings to the lower extremities, some weakness. Does not agree to work with physical therapy. Currently has a court appointed guardian, has a son who lives in [place] and will be in town soon to be involved in her care. Eating between 0-30% of her meals, refusing to eat today's lunch. Patient is a max assist to move from bed to chair. 10/28/2017: Lying in bed able to answer simple straightforward questions, would not initially open her eyes for me.oxygen remains in place, breathing easily. No cough afebrile bilateral dressing changes to bilateral lower extremities has some weakness. Not Agreeable to work with physical therapy,social work is working with a appointed guardian, son who lives in [place] regarding placement.needs supervision for meals, will eat some between 30 and 50%,maximum assist to move patient around and get her into a chair. Last BM10/27/2017 10/27/2017: Lying in bed able to answer simple straightforward questions, is not always very cooperative. Breathing is easy, oxygen delivery via nasal cannula 3 L, no cough, afebrile, local dressing changes to bilateral lower extremities. Has some weakness, not agreeable to work with physical therapy, will likely have to be discharged to adult foster shelter as she is not cooperative enough to be sent to rehabilitation 10/26/2017: Lying in bed able to answer simple straightforward questions was difficult to arouse earlier, refusing to eat breakfast,breathing is improved, no cough afebrile. local dressing changes to bilateral lower extremities. Continues to have some weakness, refuses to work with physical therapy, states she doesn't need physical therapy and wants to go home. last BM. 10/24/2017. 10/25/2017: Lying in bed resting quietly however very sleepy, difficult to arouse, breathing much improved. Mucous membranes noted to be very dry, patient's not really eating very much between 20 and 30% of her breakfast. Last BM 2017. 10/24/2017: Patient lying in bed appears comfortable yet somewhat sleepy breathing is improving. States she wants to set up in a chair. Tolerates her diet eating about 75% of each meal. Last bowel movement 10/24/2017, encourage patient to work with physical therapy, stated she did want to, explained the importance of her working with them so she can go home. 10/23/2017: Patient lying in bed appears comfortable yet somewhat sleepy. Breathing is much improved. States she does feel tired and weak. Tolerating her diet eating about 75% of each meal. Last bowel movement 10/23/2017. Guardianship successfully obtained through the court system today, patient refusing to work with physical therapy. 10/22/2017: Patient lying in bed appears comfortable. Breathing is improved. States she still feels fairly tired and weak. Tolerating her diet eating about 50% of her meals. Last bowel movement prior to admission. REVIEW OF SYSTEMS: Done for constitutional ,cardiovascular, GI, pulmonary with relevant findings as above. CURRENT MEDICATIONS Acetaminophen, [place], DuoNeb,Diamox , Dulcolax, Augmentin, Cipro, Lasix, Zestoretic, Toprol-XL 50 g by mouth daily, senna, Ritalin. PHYSICAL EXAM VITAL SIGNS: Temperature 97.5, pulse 73, respiratory rate 16, blood pressure 123/88, oxygen saturation 97% on 3 L. GENERAL APPEARANCE: Lying in bed, not in distress. HEENT: Normocephalic, Pupils equal. Conjunctiva normal. JVD not raised. Mass not palpable, Some dryness noted to the oropharynx and tongue RESPIRATORY: Respiratory effort increased. Lungs diminished to auscultation. CARDIOVASCULAR: First and second sounds normal. mild edema, Curlex wraps in place ABDOMEN: Soft. Liver and spleen not palpable. No tenderness. No mass palpable. PSYCHIATRY: able to answer some simple straightforward questions however is willful at times and will not open her eyes. Mood and affect somewhat confused. INTEGUMENT: Bilateral lower extremities red warm erythematic tender to palpation , dressings in place, Aquasol Silver and Curlex. INVESTIGATIONS: LABS: Chloride 96, carbon dioxide 35, BUN 23, creatinine 0.81. 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 -Essential hypertension. -Secondary pulmonary hypertension -Moderate tricuspid regurgitation nonrheumatic -Primary osteoarthritis of multiple joints bilateral. -Chronic gait dysfunction uses a walker. PLAN: Continue daily weights encourage oral intake. continue IV antibiotic therapy with Augmentin and Cipro, local wound care with Aquacel Silver and Curlex wraps per infectious disease. Lasix every other day. IV fluids added at 50 mL's an hour for a total of 2 L. continue Ritalin per psychiatry. Discharge planning unclear at this time as patient's son is coming in from [place] to apply for guardianship and further decisions will be made once he arrives as to where she' ll go. Plan of care discussed at the bedside we'll follow closely. SUTURE GAUGER statement: Patient was seen and examined by nurse practitioner Cori Landry and all elements of the case discussed with attending Dr. Dc
--- NOTE | 2017-11-01 20:43 | PN ---
PROGRESS NOTE DATE OF SERVICE: 11/01/17 ATTENDING NOTE: Patient seen and examined by me. I discussed with nurse practitioner Ms. Landry. Yesterday patient was started on Ritalin Dr. Martinez and I also started the patient on IV fluids. The patient actually more awake today, talking a bit more. Clinically patient still appears to be a bit dry. ASSESSMENT: Multiple medical problems including depression, CHF, other issues. The patient was treated with a total of 2 L of IV fluids, started yesterday. I will hold off the a.m. dose of Lasix. Continue to follow electrolytes and follow with Dr. Martinez. We will also hold off patient's Lasix for right now until oral intake actually increases. MMODL / IJN: [id number] /
[2017-11-01] MEDS: BISACODYL 10 MG SUPP RECTAL SCH (21:58)
--- NOTE | 2017-11-02 05:43 | PN ---
PROGRESS NOTE DATE OF SERVICE: 11/01/2017 REASON FOR FOLLOWUP: Right leg lower extremity venous stasis ulcer and cellulitis INTERVAL HISTORY: The patient is afebrile. She is breathing comfortably. Denies any chest pain or cough. No abdominal pain or any pain in the leg area. PHYSICAL EXAMINATION: On examination, blood pressure 137/83 with a pulse of 97, temperature 98.5. She is 96% on room air. General description is an elderly female lying in bed in no distress. RESPIRATORY SYSTEM: Unlabored breathing, clear to auscultation anteriorly. HEART: S1, S2. Regular rate and rhythm. ABDOMEN: Soft. No tenderness. LABS: BUN of 23, creatinine 0.81. DIAGNOSTIC IMPRESSION AND PLAN: Patient with bilateral lower extremity venous stasis ulcer and cellulitis. The patient at this time will continue on the oral Cipro and Augmentin for a few days. Local wound care with Aquacel Silver dressing and an Wei wrap to keep the swelling down. Continue supportive care. MMODL / IJN: [id number] /
[2017-11-02] MEDS: acetaZOLAMIDE 250 MG TAB PO SCH (08:38)
[2017-11-02] MEDS: POTASSIUM CITRATE 10 MEQ TABLET.ER PO SCH (08:38)
[2017-11-02] MEDS: METOPROLOL SUCCINATE (ER) 50 MG TAB.ER.24H PO SCH (08:38)
[2017-11-02] MEDS: METHYLPHENIDATE HCL 10 MG TAB PO SCH (08:38)
[2017-11-02] MEDS: AMOXIC-POT CLAV 875-125MG 1 EACH TAB PO SCH ×2 (08:38→20:09)
[2017-11-02] MEDS: LISINOPRIL-HCTZ 10-12.5 MG 1 EACH TAB PO SCH (08:38)
[2017-11-02] MEDS: CIPROFLOXACIN HCL 500 MG TAB PO SCH ×2 (08:38→20:09)
[2017-11-02] MEDS: SENNOSIDES 8.6 MG TAB PO SCH ×2 (08:38→20:09)
[2017-11-02] MEDS: HEPARIN SODIUM,PORCINE 5,000 UNIT/ML 1 ML VIAL SQ SCH ×2 (08:38→20:09)
[2017-11-02] MEDS: METHYLPHENIDATE HCL 5 MG TAB PO SCH (17:06)
--- NOTE | 2017-11-02 17:29 | PN ---
PROGRESS NOTE DATE OF SERVICE: 11/02/17. ATTENDING NOTE: The patient seen and examined by me. I discussed with nurse practitioner Ms. Landry. The patient is lying in bed, awake, answering questions. Did eat some. PHYSICAL EXAMINATION: On examination, afebrile, pulse 70, respiratory 18, blood pressure 134/90, pulse ox 96% on 3 L. lungs decreased breath sounds. Awake, answering questions. INVESTIGATIONS: Potassium 4, BUN 96, creatinine 35. ASSESSMENT: Multiple medical problems. Currently stable. I have held the patient's Lasix. The patient is started on Ritalin by Psychiatry. The patient is doing better. We will also DC patient's Diamox. MMODL / IJN: [id number] /
--- NOTE | 2017-11-02 18:44 | P.PN ---
Progress Note - Text Progress Note Date: 11/02/17 DATE OF SERVICE: 11/02/2017 PRESENTING COMPLAINT: Short of breath and weakness HISTORY OF PRESENT ILLNESS: 77-year-old female admitted with generalized weakness and tiredness as well as shortness of breath. Adult Protective Services involved with the patient with some care issues, patient's neighbor has been receiving monies from the patient to provide care, however patient has not been properly care for. Patient will likely need a court-appointed guardian. INTERVAL HISTORY: 11/02/2017: Lying in bed, awake and answers questions. Afebrile, vital signs are stable, breathing is easy, remains on nasal cannula. Lower extremity venous stasis ulcers receive local wound care antibiotic therapy per ID. Appetite is okay, not interested in eating lunch she said she wasn't hungry. Did eat 50% of her breakfast according to charting. Psychiatry continues to follow the patient admitted Ritalin and patient's overall mood seems to be improved with it. Appetite improving, encouraged patient to get up out of bed, last BM 11/01/2017. 11/01/2017: Lying in bed, awake and answers all my questions. Afebrile vital signs are stable breathing easily, nasal cannula place. Bilateral lower extremity venous stasis ulcers continue to receive local wound care and antibiotic therapy per ID. States that she eats okay, charting done by staff shows that she is not eating. IV fluids currently running. Good response from patient regarding Ritalin, she's more responsive and more calm. Continue to encourage patient to get up in the chair and participate in activities. 10/31/2017: Lying in bed, opens her eyes when I call her name. Willing to answer my questions, states she is eating okay, ate about 25% of her breakfast. Last BM 10/30/2017. Bilateral lower extremities continue to have Aquasol Silver and Curlex wraps. Stated that she was just wants to go home, doesn't want people running her life. Psychiatry initiated a trial of Ritalin. Encouraged patient to get up in the chair when she was asked to get up, and participating in activities for her to gain strength we'll get her home sooner. 10/30/2017: Lying in bed she was more cooperative today answered some straightforward questions, patient states she did eat her breakfast. Afebrile, vital signs stable Breathing easily, nasal cannula in place some wheezing noted. Bilateral lower extremity venous stasis ulcers continue to receive local wound care and antibiotic therapy per ID. No cough, afebrile, bilateral dressings to the lower extremities in place. Has some weakness. He ate about 30-40% of her breakfast. Patient was encouraged to get up out of bed for lunch. Psychiatry reevaluated the patient today. Is a max assist. 10/29/2017: Lying in bed today she is refusing to answer some straightforward questions would not initially open her eyes when I was there. Some wheezing noted but able to breathing easily, nasal cannula in place. No cough, afebrile, bilateral dressings to the lower extremities, some weakness. Does not agree to work with physical therapy. Currently has a court appointed guardian, has a son who lives in [place] and will be in town soon to be involved in her care. Eating between 0-30% of her meals, refusing to eat today's lunch. Patient is a max assist to move from bed to chair. 10/28/2017: Lying in bed able to answer simple straightforward questions, would not initially open her eyes for me.oxygen remains in place, breathing easily. No cough afebrile bilateral dressing changes to bilateral lower extremities has some weakness. Not Agreeable to work with physical therapy,social work is working with a appointed guardian, son who lives in [place] regarding placement.needs supervision for meals, will eat some between 30 and,maximum assist to move patient around and get her into a chair. Last BM10/27/2017 10/27/2017: Lying in bed able to answer simple straightforward questions, is not always very cooperative. Breathing is easy, oxygen delivery via nasal cannula 3 L, no cough, afebrile, local dressing changes to bilateral lower extremities. Has some weakness, not agreeable to work with physical therapy, will likely have to be discharged to adult foster residential as she is not cooperative enough to be sent to rehabilitation 10/26/2017: Lying in bed able to answer simple straightforward questions was difficult to arouse earlier, refusing to eat breakfast,breathing is improved, no cough afebrile. local dressing changes to bilateral lower extremities. Continues to have some weakness, refuses to work with physical therapy, states she doesn't need physical therapy and wants to go home. last BM. 10/24/2017. 10/25/2017: Lying in bed resting quietly however very sleepy, difficult to arouse, breathing much improved. Mucous membranes noted to be very dry, patient's not really eating very much between 20 and 30% of her breakfast. Last BM 2017. 10/24/2017: Patient lying in bed appears comfortable yet somewhat sleepy breathing is improving. States she wants to set up in a chair. Tolerates her diet eating about 75% of each meal. Last bowel movement 10/24/2017, encourage patient to work with physical therapy, stated she did want to, explained the importance of her working with them so she can go home. 10/23/2017: Patient lying in bed appears comfortable yet somewhat sleepy. Breathing is much improved. States she does feel tired and weak. Tolerating her diet eating about 75% of each meal. Last bowel movement 10/23/2017. Guardianship successfully obtained through the court system today, patient refusing to work with physical therapy. 10/22/2017: Patient lying in bed appears comfortable. Breathing is improved. States she still feels fairly tired and weak. Tolerating her diet eating about 50% of her meals. Last bowel movement prior to admission. REVIEW OF SYSTEMS: Done for constitutional ,cardiovascular, GI, pulmonary with relevant findings as above. CURRENT MEDICATIONS Acetaminophen, [place], DuoNeb, Dulcolax, Augmentin, Cipro, Lasix, Zestoretic, Toprol-XL 50 g by mouth daily, Zofran, potassium citrate, senna, Ritalin. PHYSICAL EXAM VITAL SIGNS: Temperature 97.5, pulse 73, respiratory rate 20, blood pressure 133/82, oxygen saturation 97% on 3 L GENERAL APPEARANCE: Lying in bed, not in distress. HENT: Normocephalic, oral cavity dryness improving to the oropharynx and tongu, external appearance of ears and nose normal. EYES:Pupils equal. Conjunctiva normal. NECK:JVD not raised. Mass not palpable RESPIRATORY: Respiratory effort increased. Lungs diminished to auscultation. CARDIOVASCULAR: First and second sounds normal. mild edema, Curlex wraps in place ABDOMEN: Soft. Liver and spleen not palpable. No tenderness. No mass palpable. PSYCHIATRY: able to answer some simple straightforward questions however is willful at times and will not open her eyes. Mood and affect somewhat confused. INTEGUMENT: Bilateral lower extremities red warm erythematic tender to palpation , dressings in place, Aquasol Silver and Curlex. INVESTIGATIONS: LABS: Chloride 96, carbon dioxide 35, BUN 23, creatinine 0.81. 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 -Essential hypertension. -Secondary pulmonary hypertension -Moderate tricuspid regurgitation nonrheumatic -Primary osteoarthritis of multiple joints bilateral. -Chronic gait dysfunction uses a walker. PLAN: Continue daily weights encourage oral intake. continue oral antibiotic therapy with Augmentin and Cipro for a few more days, local wound care with Aquacel Silver and Curlex wraps per infectious disease. Lasix on hold for now as well as Diamox. Continue Ritalin per psychiatry. Discharge planning unclear at this time as patient's brother is coming in from [place] to apply for guardianship and further decisions will be made once he arrives as to where she' ll go. Plan of care discussed at the bedside we'll follow closely. DEPOT MANAGER statement: Patient was seen and examined by nurse practitioner Cori Landry and all elements of the case discussed with attending Dr. Dc
[2017-11-02] MEDS: BISACODYL 10 MG SUPP RECTAL SCH (20:09)
--- NOTE | 2017-11-02 22:47 | PN ---
PROGRESS NOTE DATE OF SERVICE: 11/02/2017. REASON FOR FOLLOWUP: Right leg lower extremity venous stasis ulcer and cellulitis. INTERVAL HISTORY: The patient is afebrile. She is currently waiting for discharge placement. She is breathing comfortably. No chest pain. No abdominal pain or any pain in the leg area. EXAMINATION: Blood pressure 134/90 with a pulse of 70, temperature of 97.5, she is 96% on 2 L nasal cannula. General description is an elderly female, lying in bed in no distress. Respiratory system: Unlabored breathing. Clear to auscultation anteriorly. Heart S1, S2. Regular rate and rhythm. Abdomen soft, no tenderness. Legs: Swelling persists though the wounds have dried up and redness has resolved. LABS: BUN of 23, creatinine 0.81. DIAGNOSTIC IMPRESSION AND PLAN: Patient with bilateral lower extremity venous stasis ulcer with secondary cellulitis, underlying infection has been adequately treated. Recommend to keep the patient on Cipro and Augmentin, however, discontinue at time of discharge. Local wound care to continue with Aquacel silver dressing and an Wei wrap to keep the swelling down. MMODL / IJN: [id number] /
[2017-11-03] MEDS: AMOXIC-POT CLAV 875-125MG 1 EACH TAB PO SCH ×2 (08:24→21:27)
[2017-11-03] MEDS: CIPROFLOXACIN HCL 500 MG TAB PO SCH ×2 (08:24→21:28)
[2017-11-03] MEDS: METHYLPHENIDATE HCL 10 MG TAB PO SCH ×2 (08:24→23:01)
[2017-11-03] MEDS: SENNOSIDES 8.6 MG TAB PO SCH ×2 (08:25→21:28)
[2017-11-03] MEDS: LISINOPRIL-HCTZ 10-12.5 MG 1 EACH TAB PO SCH (08:25)
[2017-11-03] MEDS: METOPROLOL SUCCINATE (ER) 50 MG TAB.ER.24H PO SCH (08:25)
[2017-11-03] MEDS: HEPARIN SODIUM,PORCINE 5,000 UNIT/ML 1 ML VIAL SQ SCH ×2 (08:25→21:28)
[2017-11-03] MEDS: POTASSIUM CITRATE 10 MEQ TABLET.ER PO SCH (08:25)
--- NOTE | 2017-11-03 15:30 | PN ---
PROGRESS NOTE DATE OF SERVICE: 11/03/2017 REASON FOR FOLLOWUP: Bilateral lower extremity venostasis ulcer and cellulitis. INTERVAL HISTORY: The patient is afebrile. She is up in the chair and more awake, alert today. She is breathing comfortably. Denies any chest pain to me. No abdominal pain or any pain in the leg area. PHYSICAL EXAMINATION: Her blood pressure is 137/96 with a pulse of 75, temperature 98.5. She is 96% on 3 L nasal cannula. General description is an elderly female up in the chair, in no distress. RESPIRATORY SYSTEM: Unlabored breathing, clear to auscultation anteriorly. HEART: S1, S2. Regular rate and rhythm. ABDOMEN: Soft, no tenderness. LEGS: Swelling persists, the redness has improved. Wounds are drying out. LABS: No new labs have been obtained today. DIAGNOSTIC IMPRESSION AND PLAN: Patient with bilateral lower extremity venostasis ulcer and cellulitis, and the cellulitis has been adequately treated. Recommend discontinuation of the oral antibiotics at the time of discharge. Local wound care will continue with Aquacel Silver dressing and a light Wei wrap to keep the swelling down. MMODL / IJN: [id number] /
[2017-11-03] MEDS: METHYLPHENIDATE HCL 5 MG TAB PO SCH (18:01)
--- NOTE | 2017-11-03 18:54 | P.PN ---
Progress Note - Text Progress Note Date: 11/03/17 DATE OF SERVICE: 11/03/2017 PRESENTING COMPLAINT: Short of breath and weakness HISTORY OF PRESENT ILLNESS: 77-year-old female admitted with generalized weakness and tiredness as well as shortness of breath. Adult Protective Services involved with the patient with some care issues, patient's neighbor has been receiving monies from the patient to provide care, however patient has not been properly care for. Patient has a court appointed guardian. INTERVAL HISTORY: 11/03/2017: Sitting up in a chair, awake and answering questions. Calm and cooperative. Afebrile, vital signs stable, breathing is unlabored. Remains on nasal cannula. Local wound care continues per ID to bilateral lower extremities with Aquasol and Curlex wraps. Appetite is okay patient states she ate 50% of her meals today. Continues on Ritalin, helps her overall mood and affect. Last BM 11/01/2017. 11/02/2017: Lying in bed, awake and answers questions. Afebrile, vital signs are stable, breathing is easy, remains on nasal cannula. Lower extremity venous stasis ulcers receive local wound care antibiotic therapy per ID. Appetite is okay, not interested in eating lunch she said she wasn't hungry. Did eat 50% of her breakfast according to charting. Psychiatry continues to follow the patient admitted Ritalin and patient's overall mood seems to be improved with it. Appetite improving, encouraged patient to get up out of bed, last BM 11/01/2017. 11/01/2017: Lying in bed, awake and answers all my questions. Afebrile vital signs are stable breathing easily, nasal cannula place. Bilateral lower extremity venous stasis ulcers continue to receive local wound care and antibiotic therapy per ID. States that she eats okay, charting done by staff shows that she is not eating. IV fluids currently running. Good response from patient regarding Ritalin, she's more responsive and more calm. Continue to encourage patient to get up in the chair and participate in activities. 10/31/2017: Lying in bed, opens her eyes when I call her name. Willing to answer my questions, states she is eating okay, ate about 25% of her breakfast. Last BM 10/30/2017. Bilateral lower extremities continue to have Aquasol Silver and Curlex wraps. Stated that she was just wants to go home, doesn't want people running her life. Psychiatry initiated a trial of Ritalin. Encouraged patient to get up in the chair when she was asked to get up, and participating in activities for her to gain strength we'll get her home sooner. 10/30/2017: Lying in bed she was more cooperative today answered some straightforward questions, patient states she did eat her breakfast. Afebrile, vital signs stable Breathing easily, nasal cannula in place some wheezing noted. Bilateral lower extremity venous stasis ulcers continue to receive local wound care and antibiotic therapy per ID. No cough, afebrile, bilateral dressings to the lower extremities in place. Has some weakness. He ate about 30-40% of her breakfast. Patient was encouraged to get up out of bed for lunch. Psychiatry reevaluated the patient today. Is a max assist. 10/29/2017: Lying in bed today she is refusing to answer some straightforward questions would not initially open her eyes when I was there. Some wheezing noted but able to breathing easily, nasal cannula in place. No cough, afebrile, bilateral dressings to the lower extremities, some weakness. Does not agree to work with physical therapy. Currently has a court appointed guardian, has a son who lives in [place] and will be in town soon to be involved in her care. Eating between 0-30% of her meals, refusing to eat today's lunch. Patient is a max assist to move from bed to chair. 10/28/2017: Lying in bed able to answer simple straightforward questions, would not initially open her eyes for me.oxygen remains in place, breathing easily. No cough afebrile bilateral dressing changes to bilateral lower extremities has some weakness. Not Agreeable to work with physical therapy,social work is working with a appointed guardian, son who lives in [place] regarding placement.needs supervision for meals, will eat some between 30 and,maximum assist to move patient around and get her into a chair. Last BM10/27/2017 10/27/2017: Lying in bed able to answer simple straightforward questions, is not always very cooperative. Breathing is easy, oxygen delivery via nasal cannula 3 L, no cough, afebrile, local dressing changes to bilateral lower extremities. Has some weakness, not agreeable to work with physical therapy, will likely have to be discharged to adult foster [facility] as she is not cooperative enough to be sent to rehabilitation 10/26/2017: Lying in bed able to answer simple straightforward questions was difficult to arouse earlier, refusing to eat breakfast,breathing is improved, no cough afebrile. local dressing changes to bilateral lower extremities. Continues to have some weakness, refuses to work with physical therapy, states she doesn't need physical therapy and wants to go home. last BM. 10/24/2017. 10/25/2017: Lying in bed resting quietly however very sleepy, difficult to arouse, breathing much improved. Mucous membranes noted to be very dry, patient's not really eating very much between 20 and 30% of her breakfast. Last BM 2017. 10/24/2017: Patient lying in bed appears comfortable yet somewhat sleepy breathing is improving. States she wants to set up in a chair. Tolerates her diet eating about 75% of each meal. Last bowel movement 10/24/2017, encourage patient to work with physical therapy, stated she did want to, explained the importance of her working with them so she can go home. 10/23/2017: Patient lying in bed appears comfortable yet somewhat sleepy. Breathing is much improved. States she does feel tired and weak. Tolerating her diet eating about 75% of each meal. Last bowel movement 10/23/2017. Guardianship successfully obtained through the court system today, patient refusing to work with physical therapy. 10/22/2017: Patient lying in bed appears comfortable. Breathing is improved. States she still feels fairly tired and weak. Tolerating her diet eating about 50% of her meals. Last bowel movement prior to admission. REVIEW OF SYSTEMS: Done for constitutional ,cardiovascular, GI, pulmonary with relevant findings as above. CURRENT MEDICATIONS Acetaminophen, [place], DuoNeb, Dulcolax, Augmentin, Cipro Zestoretic, heparin subcu, Toprol-XL 50 g by mouth daily, Zofran, potassium citrate, senna, Ritalin. PHYSICAL EXAM VITAL SIGNS: Temperature 98.5, pulse 75, respiratory rate 20, blood pressure 137/96, oxygen saturation 96% on 3 L. GENERAL APPEARANCE: Lying in bed, not in distress. HENT: Normocephalic,dryness improving to the oropharynx and tongue external appearance of ears/nose normal. NECK:JVD not raised. Mass not palpable, EYES:Pupils equal. Conjunctiva normal. RESPIRATORY: Respiratory effort increased. Lungs diminished to auscultation. CARDIOVASCULAR: First and second sounds normal. mild edema, Curlex wraps in place ABDOMEN: Soft. Liver and spleen not palpable. No tenderness. No mass palpable. PSYCHIATRY: able to answer some simple straightforward questions however is willful at times and will not open her eyes. Mood and affect somewhat confused. INTEGUMENT: Bilateral lower extremities red warm erythematic tender to palpation , dressings in place, Aquasol Silver and Curlex. 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 -Essential hypertension. -Secondary pulmonary hypertension -Moderate tricuspid regurgitation nonrheumatic -Primary osteoarthritis of multiple joints bilateral. -Chronic gait dysfunction uses a walker. PLAN: Continue daily weights encourage oral intake. continue oral antibiotic therapy with Augmentin and Cipro for a few more days, local wound care with Aquacel Silver and Curlex wraps per infectious disease. Lasix on hold for now as well as Diamox. Continue Ritalin per psychiatry. Discharge planning unclear at this time as patient's brother is coming in from [place] to apply for guardianship and further decisions will be made once he arrives as to where she' ll go. Plan of care discussed at the bedside we'll follow closely. PRODUCTION MACHINE SHOP SUPERVISOR statement: Patient was seen and examined by nurse practitioner Cori Landry and all elements of the case discussed with attending Dr. Dc
[2017-11-03] MEDS: BISACODYL 10 MG SUPP RECTAL SCH (21:37)
--- NOTE | 2017-11-03 21:48 | PN ---
PROGRESS NOTE DATE OF SERVICE: 11/03/17. ATTENDING NOTE: The patient seen and examined by me. Discussed with nurse practitioner Ms. Landry. Patient sitting in a chair, eating about 50%, talking. PHYSICAL EXAMINATION: On examination, pulse 97, respiratory 18, blood pressure 137/86, pulse ox 98% on 3 L. Lungs decreased breath sounds, answering questions. INVESTIGATIONS: Potassium 4, BUN 23, creatinine 0.81. ASSESSMENT: Multiple medical problems. The patient is relatively stable. Awaiting placement. body and fender worker is involved. MMODL / IJN: [id number] /
--- NOTE | 2017-11-04 05:27 | CONS ---
CONSULTATION DATE OF SERVICE: 11/03/2017. PURPOSE FOR CONSULTATION: Evaluate for altered mental status. INTERVAL HISTORY: The patient continues to do about the same. Staff reports that overall she is moderately more alert and responsive than she had been previously. She continues to be quite limited in her interactions. She has been cooperative. She sleeps well at night. She does nap on or off in the day. She continues to have periods where she is either disconnected or somewhat sedated to where she does not respond to things around her. She seems to be functioning a little bit better overall since starting Ritalin. She has shown no problems with the Ritalin when I saw her today she was sleeping in the morning. She was somewhat responsive, though not significantly so. At this point, I will increase her Ritalin. I will increase her morning dose to 20 mg. For now I would continue her afternoon dose the same as at 5 mg though I would look to possibly increase the afternoon dose also. I will continue to follow. MMODL / IJN: [id number] /
[2017-11-04] MEDS: METOPROLOL SUCCINATE (ER) 50 MG TAB.ER.24H PO SCH (07:54)
[2017-11-04] MEDS: CIPROFLOXACIN HCL 500 MG TAB PO SCH (07:54)
[2017-11-04] MEDS: AMOXIC-POT CLAV 875-125MG 1 EACH TAB PO SCH (07:54)
[2017-11-04] MEDS: HEPARIN SODIUM,PORCINE 5,000 UNIT/ML 1 ML VIAL SQ SCH ×2 (07:54→20:23)
[2017-11-04] MEDS: METHYLPHENIDATE HCL 10 MG TAB PO SCH (07:54)
[2017-11-04] MEDS: SENNOSIDES 8.6 MG TAB PO SCH ×2 (07:54→20:23)
[2017-11-04] MEDS: LISINOPRIL-HCTZ 10-12.5 MG 1 EACH TAB PO SCH (07:54)
[2017-11-04] MEDS: METHYLPHENIDATE HCL 5 MG TAB PO SCH (14:40)
--- NOTE | 2017-11-04 14:40 | PN ---
PROGRESS NOTE DATE OF SERVICE: 11/04/2017 REASON FOR FOLLOWUP: Bilateral extremity venostasis ulcer and cellulitis. INTERVAL HISTORY: The patient is afebrile. She is breathing comfortably. Denies significant chest pain or cough or any pain in the leg area. PHYSICAL EXAMINATION: Blood pressure 135/90 with a pulse of 75, temperature of 97. She is 96% on 3 L nasal cannula. General description is an elderly female up in the chair, in no distress. RESPIRATORY SYSTEM: Unlabored breathing, clear to auscultation anteriorly. HEART: S1, S2. Regular rate and rhythm. ABDOMEN: Soft, no tenderness. Leg swelling is there but redness has improved, some ulcers have dried out. LABS: No new lab has been obtained today. DIAGNOSTIC IMPRESSION AND PLAN: Patient with bilateral extremity venostasis ulcer secondary to cellulitis, underlying infection has been adequately treated. No need for further antibiotic therapy. Will discontinue both the Cipro and Augmentin. Recommend Wei wrap to the leg to keep the swelling down. Continue supportive care. MMODL / IJN: [id number] /
--- NOTE | 2017-11-04 17:04 | P.PN ---
Progress Note - Text Progress Note Date: 11/04/17 DATE OF SERVICE: 11/04/2017 PRESENTING COMPLAINT: Short of breath and weakness HISTORY OF PRESENT ILLNESS: 77-year-old female admitted with generalized weakness and tiredness as well as shortness of breath. Adult Protective Services involved with the patient with some care issues, patient's neighbor has been receiving monies from the patient to provide care, however patient has not been properly care for. Patient has a court appointed guardian. INTERVAL HISTORY: 11/04/2017: Up in a chair, awake answers questions conversant. Calm cooperative. Afebrile , vital signs stable, breathing is unlabored. Lower extremity edema improving, Aquasol Silver and Curlex wraps continue per ID. Appetite is waxes and wanes, a 25% of her breakfast and none of her lunch. Up with assistance last BM 2017. Expecting placement soon. 11/03/2017: Sitting up in a chair, awake and answering questions. Calm and cooperative. Afebrile, vital signs stable, breathing is unlabored. Remains on nasal cannula. Local wound care continues per ID to bilateral lower extremities with Aquasol and Curlex wraps. Appetite is okay patient states she ate 50% of her meals today. Continues on Ritalin, helps her overall mood and affect. Last BM 11/01/2017. 11/02/2017: Lying in bed, awake and answers questions. Afebrile, vital signs are stable, breathing is easy, remains on nasal cannula. Lower extremity venous stasis ulcers receive local wound care antibiotic therapy per ID. Appetite is okay, not interested in eating lunch she said she wasn't hungry. Did eat 50% of her breakfast according to charting. Psychiatry continues to follow the patient admitted Ritalin and patient's overall mood seems to be improved with it. Appetite improving, encouraged patient to get up out of bed, last BM 11/01/2017. 11/01/2017: Lying in bed, awake and answers all my questions. Afebrile vital signs are stable breathing easily, nasal cannula place. Bilateral lower extremity venous stasis ulcers continue to receive local wound care and antibiotic therapy per ID. States that she eats okay, charting done by staff shows that she is not eating. IV fluids currently running. Good response from patient regarding Ritalin, she's more responsive and more calm. Continue to encourage patient to get up in the chair and participate in activities. 10/31/2017: Lying in bed, opens her eyes when I call her name. Willing to answer my questions, states she is eating okay, ate about 25% of her breakfast. Last BM 10/30/2017. Bilateral lower extremities continue to have Aquasol Silver and Curlex wraps. Stated that she was just wants to go home, doesn't want people running her life. Psychiatry initiated a trial of Ritalin. Encouraged patient to get up in the chair when she was asked to get up, and participating in activities for her to gain strength we'll get her home sooner. 10/30/2017: Lying in bed she was more cooperative today answered some straightforward questions, patient states she did eat her breakfast. Afebrile, vital signs stable Breathing easily, nasal cannula in place some wheezing noted. Bilateral lower extremity venous stasis ulcers continue to receive local wound care and antibiotic therapy per ID. No cough, afebrile, bilateral dressings to the lower extremities in place. Has some weakness. He ate about 30-40% of her breakfast. Patient was encouraged to get up out of bed for lunch. Psychiatry reevaluated the patient today. Is a max assist. 10/29/2017: Lying in bed today she is refusing to answer some straightforward questions would not initially open her eyes when I was there. Some wheezing noted but able to breathing easily, nasal cannula in place. No cough, afebrile, bilateral dressings to the lower extremities, some weakness. Does not agree to work with physical therapy. Currently has a court appointed guardian, has a son who lives in [place] and will be in town soon to be involved in her care. Eating between 0-30% of her meals, refusing to eat today's lunch. Patient is a max assist to move from bed to chair. 10/28/2017: Lying in bed able to answer simple straightforward questions, would not initially open her eyes for me.oxygen remains in place, breathing easily. No cough afebrile bilateral dressing changes to bilateral lower extremities has some weakness. Not Agreeable to work with physical therapy,social work is working with a appointed guardian, son who lives in [place] regarding placement.needs supervision for meals, will eat some between 30 and,maximum assist to move patient around and get her into a chair. Last BM10/27/2017 10/27/2017: Lying in bed able to answer simple straightforward questions, is not always very cooperative. Breathing is easy, oxygen delivery via nasal cannula 3 L, no cough, afebrile, local dressing changes to bilateral lower extremities. Has some weakness, not agreeable to work with physical therapy, will likely have [facility] as she is not cooperative enough to be sent to rehabilitation 10/26/2017: Lying in bed able to answer simple straightforward questions was difficult to arouse earlier, refusing to eat breakfast,breathing is improved, no cough afebrile. local dressing changes to bilateral lower extremities. Continues to have some weakness, refuses to work with physical therapy, states she doesn't need physical therapy and wants to go home. last BM. 10/24/2017. 10/25/2017: Lying in bed resting quietly however very sleepy, difficult to arouse, breathing much improved. Mucous membranes noted to be very dry, patient's not really eating very much between 20 and 30% of her breakfast. Last BM 2017. 10/24/2017: Patient lying in bed appears comfortable yet somewhat sleepy breathing is improving. States she wants to set up in a chair. Tolerates her diet eating about 75% of each meal. Last bowel movement 10/24/2017, encourage patient to work with physical therapy, stated she did want to, explained the importance of her working with them so she can go home. 10/23/2017: Patient lying in bed appears comfortable yet somewhat sleepy. Breathing is much improved. States she does feel tired and weak. Tolerating her diet eating about 75% of each meal. Last bowel movement 10/23/2017. Guardianship successfully obtained through the court system today, patient refusing to work with physical therapy. 10/22/2017: Patient lying in bed appears comfortable. Breathing is improved. States she still feels fairly tired and weak. Tolerating her diet eating about 50% of her meals. Last bowel movement prior to admission. REVIEW OF SYSTEMS: Done for constitutional ,cardiovascular, GI, pulmonary with relevant findings as above. CURRENT MEDICATIONS Acetaminophen, [place], DuoNeb, Dulcolax, Zestoretic, heparin subcu, Toprol-XL 50 g by mouth daily, Zofran, potassium citrate, senna, Ritalin. PHYSICAL EXAM VITAL SIGNS: Temperature 97.0, pulse 75, respiratory rate 16, blood pressure 135/90, oxygen saturation 96% on 3 L. GENERAL APPEARANCE: Up in a chair, not in distress. HENT: Normocephalic,Oropharynx and tongue moist and pink. NECK: JVD not raised. Mass not palpable, external appearance of ears/nose normal. EYES:Pupils equal. Conjunctiva normal. RESPIRATORY: Respiratory effort increased. Lungs diminished to auscultation. CARDIOVASCULAR: First and second sounds normal. mild edema, Curlex wraps in place ABDOMEN: Soft. Liver and spleen not palpable. No tenderness. No mass palpable. PSYCHIATRY: able to answer some simple straightforward questions however is willful at times and will not open her eyes. Mood and affect somewhat confused. INTEGUMENT: Bilateral lower extremities red warm erythematic tender to palpation , dressings in place, Aquasol Silver and Curlex. 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 -Essential hypertension. -Secondary pulmonary hypertension -Moderate tricuspid regurgitation nonrheumatic -Primary osteoarthritis of multiple joints bilateral. -Chronic gait dysfunction uses a walker. PLAN: Continue daily weights encourage oral intake. lower extremities to be angelo wrapped to keep swelling down, local wound care with Aquacel Silver and Curlex wraps per infectious disease. Lasix on hold for now as well as Diamox. Continue Ritalin per psychiatry. Discharge planning for [facility] insurance authorization has been received. Plan of care discussed at the bedside we'll follow closely. ELECTRICAL AND RADIO MECHANIC statement: Patient was seen and examined by nurse practitioner Cori Landry and all elements of the case discussed with attending Dr. Dc
--- NOTE | 2017-11-04 20:10 | PN ---
PROGRESS NOTE DATE OF SERVICE: 11/04/2017 ATTENDING NOTE: This patient was seen and examined by me. I discussed the case with the nurse practitioner Ms. Landry. Patient is more awake, sitting on a chair, actually answering more questions. Tolerating some of her diet. On examination, temperature 97, pulse 75, respiration 16, blood pressure 135/90, pulse ox 96% on 3 L. Lungs reveal decreased breath sounds. Patient is answering questions appropriately. INVESTIGATIONS: No blood work today. ASSESSMENT: 1. Congestive heart failure, stable. 2. Bilateral lower extremity venostasis ulcers with secondary cellulitis, improving. 3. Metabolic encephalopathy, significantly improved. PLAN: Awaiting input from high school social studies teacher for discharge planning. Antibiotics per Dr. Pan. Cipro and Augmentin have been discontinued. Will follow. MMODL / IJN: [id number] /
[2017-11-04] MEDS ORDERED: LACTULOSE 20 GM/30 ML CUP PO ONE (20:16)
[2017-11-04] MEDS: BISACODYL 10 MG SUPP RECTAL SCH (21:48)
[2017-11-05 07:38] VITALS: RESP 20
[2017-11-05] MEDS: SENNOSIDES 8.6 MG TAB PO SCH ×2 (08:59→19:51)
[2017-11-05] MEDS: HEPARIN SODIUM,PORCINE 5,000 UNIT/ML 1 ML VIAL SQ SCH ×2 (09:00→19:51)
[2017-11-05] MEDS: METOPROLOL SUCCINATE (ER) 50 MG TAB.ER.24H PO SCH (09:01)
[2017-11-05] MEDS: LISINOPRIL-HCTZ 10-12.5 MG 1 EACH TAB PO SCH (09:01)
[2017-11-05] MEDS: METHYLPHENIDATE HCL 10 MG TAB PO SCH (09:02)
[2017-11-05] MEDS: METHYLPHENIDATE HCL 5 MG TAB PO SCH (15:58)
--- NOTE | 2017-11-05 17:09 | PN ---
PROGRESS NOTE DATE OF SERVICE: 11/05/2017. REASON FOR FOLLOWUP: Bilateral lower extremity venostasis ulcer and cellulitis. INTERVAL HISTORY: The patient is afebrile. He is currently breathing comfortably. She is more awake, alert. Denies any chest pain, cough, or any pain in the bilateral legs area. EXAMINATION: Blood pressure 127/75 with a pulse of 93, temperature of 98. She is 91% on 3 L nasal cannula. General description is an elderly female lying in bed in no distress. RESPIRATORY SYSTEM: Unlabored breathing. Clear to auscultation anteriorly. HEART: S1, S2. Regular rate and rhythm. ABDOMEN: Soft, no tenderness. Bilateral leg area swelling persists though the redness is improved. No drainage. LABS: BUN of 23, creatinine 0.81. DIAGNOSTIC IMPRESSION AND PLAN: Patient with bilateral lower extremity venostasis ulcer with secondary cellulitis. The leg cellulitis has been adequately treated. Currently off antibiotic therapy with no worsening of any swelling or redness. Continue with Wei wrap to keep some of the swelling down and continue supportive care. MMODL / IJN: [id number] /
--- NOTE | 2017-11-05 19:00 | P.PN ---
Progress Note - Text Progress Note Date: 11/05/17 DATE OF SERVICE: 11/05/2017 PRESENTING COMPLAINT: Short of breath and weakness HISTORY OF PRESENT ILLNESS: 77-year-old female admitted with generalized weakness and tiredness as well as shortness of breath. Adult Protective Services involved with the patient with some care issues, patient's neighbor has been receiving monies from the patient to provide care, however patient has not been properly care for. Patient has a court appointed guardian. INTERVAL HISTORY: 11/05/2017: Sitting up the bed awake able to have an appropriate conversation. Calm cooperative. No acute overnight events, afebrile, vital signs stable, breathing is unlabored. Lower extremity edema improved and dressings to bilateral lower extremities continue with Aquasol Silver and Curlex wraps per infectious disease. Appetite waxes and wanes. Patient is aware of her legal situation, states she just wants to go home, explained to her she needs to go to rehab prior to going home. Stated she understood. 11/04/2017: Up in a chair, awake answers questions conversant. Calm cooperative. Afebrile , vital signs stable, breathing is unlabored. Lower extremity edema improving, Aquasol Silver and Curlex wraps continue per ID. Appetite is waxes and wanes, a 25% of her breakfast and none of her lunch. Up with assistance last BM 2017. Expecting placement soon. 11/03/2017: Sitting up in a chair, awake and answering questions. Calm and cooperative. Afebrile, vital signs stable, breathing is unlabored. Remains on nasal cannula. Local wound care continues per ID to bilateral lower extremities with Aquasol and Curlex wraps. Appetite is okay patient states she ate 50% of her meals today. Continues on Ritalin, helps her overall mood and affect. Last BM 11/01/2017. 11/02/2017: Lying in bed, awake and answers questions. Afebrile, vital signs are stable, breathing is easy, remains on nasal cannula. Lower extremity venous stasis ulcers receive local wound care antibiotic therapy per ID. Appetite is okay, not interested in eating lunch she said she wasn't hungry. Did eat 50% of her breakfast according to charting. Psychiatry continues to follow the patient admitted Ritalin and patient's overall mood seems to be improved with it. Appetite improving, encouraged patient to get up out of bed, last BM 11/01/2017. 11/01/2017: Lying in bed, awake and answers all my questions. Afebrile vital signs are stable breathing easily, nasal cannula place. Bilateral lower extremity venous stasis ulcers continue to receive local wound care and antibiotic therapy per ID. States that she eats okay, charting done by staff shows that she is not eating. IV fluids currently running. Good response from patient regarding Ritalin, she's more responsive and more calm. Continue to encourage patient to get up in the chair and participate in activities. 10/31/2017: Lying in bed, opens her eyes when I call her name. Willing to answer my questions, states she is eating okay, ate about 25% of her breakfast. Last BM 10/30/2017. Bilateral lower extremities continue to have Aquasol Silver and Curlex wraps. Stated that she was just wants to go home, doesn't want people running her life. Psychiatry initiated a trial of Ritalin. Encouraged patient to get up in the chair when she was asked to get up, and participating in activities for her to gain strength we'll get her home sooner. 10/30/2017: Lying in bed she was more cooperative today answered some straightforward questions, patient states she did eat her breakfast. Afebrile, vital signs stable Breathing easily, nasal cannula in place some wheezing noted. Bilateral lower extremity venous stasis ulcers continue to receive local wound care and antibiotic therapy per ID. No cough, afebrile, bilateral dressings to the lower extremities in place. Has some weakness. He ate about 30-40% of her breakfast. Patient was encouraged to get up out of bed for lunch. Psychiatry reevaluated the patient today. Is a max assist. 10/29/2017: Lying in bed today she is refusing to answer some straightforward questions would not initially open her eyes when I was there. Some wheezing noted but able to breathing easily, nasal cannula in place. No cough, afebrile, bilateral dressings to the lower extremities, some weakness. Does not agree to work with physical therapy. Currently has a court appointed guardian, has a son who lives in [place] and will be in town soon to be involved in her care. Eating between 0-30% of her meals, refusing to eat today's lunch. Patient is a max assist to move from bed to chair. 10/28/2017: Lying in bed able to answer simple straightforward questions, would not initially open her eyes for me.oxygen remains in place, breathing easily. No cough afebrile bilateral dressing changes to bilateral lower extremities has some weakness. Not Agreeable to work with physical therapy,social work is working with a appointed guardian, son who lives in [place] regarding placement.needs supervision for meals, will eat some between 30 and,maximum assist to move patient around and get her into a chair. Last BM10/27/2017 10/27/2017: Lying in bed able to answer simple straightforward questions, is not always very cooperative. Breathing is easy, oxygen delivery via nasal cannula 3 L, no cough, afebrile, local dressing changes to bilateral lower extremities. Has some weakness, not agreeable to work with physical therapy, will likely have to be discharged to adult foster senior care as she is not cooperative enough to be sent to rehabilitation 10/26/2017: Lying in bed able to answer simple straightforward questions was difficult to arouse earlier, refusing to eat breakfast,breathing is improved, no cough afebrile. local dressing changes to bilateral lower extremities. Continues to have some weakness, refuses to work with physical therapy, states she doesn't need physical therapy and wants to go home. last BM. 10/24/2017. 10/25/2017: Lying in bed resting quietly however very sleepy, difficult to arouse, breathing much improved. Mucous membranes noted to be very dry, patient's not really eating very much between 20 and 30% of her breakfast. Last BM 2017. 10/24/2017: Patient lying in bed appears comfortable yet somewhat sleepy breathing is improving. States she wants to set up in a chair. Tolerates her diet eating about 75% of each meal. Last bowel movement 10/24/2017, encourage patient to work with physical therapy, stated she did want to, explained the importance of her working with them so she can go home. 10/23/2017: Patient lying in bed appears comfortable yet somewhat sleepy. Breathing is much improved. States she does feel tired and weak. Tolerating her diet eating about 75% of each meal. Last bowel movement 10/23/2017. Guardianship successfully obtained through the court system today, patient refusing to work with physical therapy. 10/22/2017: Patient lying in bed appears comfortable. Breathing is improved. States she still feels fairly tired and weak. Tolerating her diet eating about 50% of her meals. Last bowel movement prior to admission. REVIEW OF SYSTEMS: Done for constitutional ,cardiovascular, GI, pulmonary with relevant findings as above. CURRENT MEDICATIONS Acetaminophen, [place], DuoNeb, Dulcolax, Zestoretic, heparin subcu, Toprol-XL 50 g by mouth daily, Zofran, potassium citrate, senna, Ritalin. PHYSICAL EXAM VITAL SIGNS: Temperature 96.8, pulse 94, respiratory rate 20, blood pressure 142/91, oxygen saturation 94% on 3 L. GENERAL APPEARANCE: Lying in bed calm and cooperative. HENT: Normocephalic,Oropharynx and tongue moist and pink.external appearance of ears/nose normal. NECK: JVD not raised. Mass not palpable, EYES:Pupils equal. Conjunctiva normal. RESPIRATORY: Respiratory effort increased. Lungs diminished to auscultation. CARDIOVASCULAR: First and second sounds normal. mild edema, Curlex wraps in place ABDOMEN: Soft. Liver and spleen not palpable. No tenderness. No mass palpable. PSYCHIATRY: able to answer some simple straightforward questions however is willful at times and will not open her eyes. Mood and affect somewhat confused. INTEGUMENT: Bilateral lower extremities red warm erythematic tender to palpation , dressings in place, Aquasol Silver and Curlex. 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 -Essential hypertension. -Secondary pulmonary hypertension -Moderate tricuspid regurgitation nonrheumatic -Primary osteoarthritis of multiple joints bilateral. -Chronic gait dysfunction uses a walker. PLAN: Continue daily weights encourage oral intake. lower extremities to be angelo wrapped to keep swelling down, local wound care with Aquacel Silver and Curlex wraps per infectious disease. Lasix on hold for now as well as Diamox. Continue Ritalin per psychiatry. Discharge planning for [facility] awaiting insurance authorization. Plan of care discussed at the bedside we'll follow closely. BUSINESS DATA ANALYST statement: Patient was seen and examined by nurse practitioner Cori Landry and all elements of the case discussed with attending Dr. Dc
[2017-11-05] MEDS: BISACODYL 10 MG SUPP RECTAL SCH (19:51)
--- NOTE | 2017-11-05 22:44 | PN ---
PROGRESS NOTE DATE OF SERVICE: 11/05/2017 ATTENDING NOTE: This patient was seen and examined by me. I discussed the case with the nurse practitioner Ms. Landry. Patient is sitting up, awake, actually having a much better conversation. Eating much better. Antibiotics are off. On examination, afebrile, pulse 94, blood pressure 142/91, pulse ox 94% on 3 L. LUNGS: Decreased breath sounds. Awake, answering questions far more appropriately. ASSESSMENT: 1. Congestive heart failure, stable. 2. Metabolic encephalopathy, greatly improved. Patient's Lasix will be changed to Thursday, Thursday and Thursday. Will follow. MMODL / IJN: [id number] /
[2017-11-06] MEDS: METHYLPHENIDATE HCL 10 MG TAB PO SCH (08:00)
[2017-11-06] MEDS ORDERED: POTASSIUM CHLORIDE ER 10 MEQ TAB.ER.PRT PO SCH (09:00)
[2017-11-06] MEDS ORDERED: FUROSEMIDE 40 MG TAB PO SCH (09:00)
[2017-11-06] MEDS: HEPARIN SODIUM,PORCINE 5,000 UNIT/ML 1 ML VIAL SQ SCH (09:17)
[2017-11-06] MEDS: METOPROLOL SUCCINATE (ER) 50 MG TAB.ER.24H PO SCH (09:18)
[2017-11-06] MEDS: SENNOSIDES 8.6 MG TAB PO SCH ×2 (09:18→09:20)
[2017-11-06] MEDS: LISINOPRIL-HCTZ 10-12.5 MG 1 EACH TAB PO SCH (09:18)
--- NOTE | 2017-11-06 15:18 | CONS ---
CONSULTATION DATE OF SERVICE: 11/06/2017 PURPOSE FOR CONSULTATION: Evaluate for altered mental status. INTERVAL HISTORY: The patient has been doing fairly well. It is noteworthy that as her Ritalin has been titrated up she seems to be more responsive and more alert. She does have periods where she naps in the day, though she seems to have fairly good periods during the day where her thoughts are clear. She can interact with others. She pays attention to things going on around her. When I saw her today she gave me good eye contact. She said that she did not want to take Ritalin, though she was not clear why. When I made reference to the fact that a neighbor visited a couple days ago and said that was the most she had been talking in the last 2 weeks, she was somewhat surprised with that. She was not exactly sure who had been visiting though acknowledged that someone did come to give her an update on her animals at home. She is hopeful to be discharged soon. She seems to have improved energy. Her mood is better. She has an overall better outlook and seems to be functioning fairly well. At this point I would continue her Ritalin the same. She will continue 20 mg in the morning and 5 mg in the afternoon. MMODL / IJN: [id number] /
[2017-11-06] MEDS: METHYLPHENIDATE HCL 5 MG TAB PO SCH ×2 (15:21→15:24)
[2017-11-06 15:39] VITALS: BP 133/82; PULSE 85; TEMP 98.8
--- NOTE | 2017-11-06 16:54 | DS ---
DISCHARGE SUMMARY DATE OF ADMISSION: 10/18/17. DATE OF DISCHARGE: 11/06/17. FINAL DIAGNOSES: 1. Acute on chronic congestive heart failure exacerbation from diastolic dysfunction, EF 55-60%, probably from hypertensive heart disease. 2. Acute bilateral lower extremity venostasis ulcers with secondary cellulitis present on admission. 3. Acute metabolic encephalopathy, multifactorial. 4. Metabolic alkalosis from volume contraction. 5. Chronic obstructive pulmonary disease in an ex-smoker. 6. Essential hypertension. 7. Secondary pulmonary hypertension from chronic obstructive pulmonary disease. 8. Moderate tricuspid regurgitation nonrheumatic. 9. Primary osteoarthritis multiple joints, bilateral. 10.Chronic gait dysfunction uses a walker. 11.Varices. 12.On further evaluation the patient does not have chronic kidney disease. HOSPITAL COURSE: This patient presented with CHF exacerbation, lower extremity venostasis ulcers. The patient received a course of antibiotics per Dr. Pan. Healed and antibiotic course was done. CHF was treated. 2D echo came back showing preserved LV function. The patient also was in metabolic encephalopathy and volume contraction. Lasix was subsequently cut back. The patient was seen by Dr. Martinez, very lethargic, who put the patient on Ritalin to which patient responded rather well. Now patient actually sits up on a chair, able to carry a conversation. Eating better. Lower extremity venostasis ulcer is much improved. CURRENT LABS: BUN 23, creatinine 0.81. CONSULTATIONS: 1. Dr. Pan from Infectious Disease. 2. Dr. Martinez from Psychiatry. 3. Dr. Chiang from Cardiology. DC MEDICATIONS: 1. Toprol-XL 50 mg p.o. daily. 2. Lasix 40 mg Thursday, Thursday and Thursday. 3. Lisinopril hydrochlorothiazide 07/30.5 one tab p.o. q.h.s. 4. Ritalin 5 mg at 2:00 pm and 20 mg with breakfast. 5. Potassium 10 mEq p.o. on Thursday, Thursday and Thursday. DISPOSITION: [facility]. Follow up with Dr. Vanessa at the [facility], Dr. Carpio in 1 week, Dr. Pan in 1 week. Lower extremity wound care to continue. Labs CBC BMP in 3-4 days. CODE STATUS DNR. Additionally, additional information: Patient has a legal guardian. More details in the notes of the social correctional case records supervisor which should be transferred to the [facility]. Also follow up with Psychiatry as an outpatient in 2-3 weeks. MMODL / IJN: [id number] /
== END 2017-11-06 17:38 | DRG 291 ==
LOC: EC 18:08 → 6SEL 21:54 → EEVIPCON 21:54 → 6SEL 22:14 → 4MS4W 10-21 16:41
PROVIDERS: ADMIT Hospitalist; ATTEND Hospitalist
DX: I13.0 Hypertensive heart and chronic kidney disease with heart failure and stage 1 through stage 4 chronic kidney disease, or unspecified chronic kidney disease (principal); G93.41 Metabolic encephalopathy; E87.3 Alkalosis; E86.0 Dehydration; L03.115 Cellulitis of right lower limb; I27.29 Other secondary pulmonary hypertension; I07.1 Rheumatic tricuspid insufficiency; I83.019 Varicose veins of right lower extremity with ulcer of unspecified site; I50.33 Acute on chronic diastolic (congestive) heart failure; L03.116 Cellulitis of left lower limb; N18.3 Chronic kidney disease, stage 3 (moderate); J44.9 Chronic obstructive pulmonary disease, unspecified; R26.9 Unspecified abnormalities of gait and mobility; B96.20 Unspecified Escherichia coli [E. coli] as the cause of diseases classified elsewhere; F32.9 Major depressive disorder, single episode, unspecified; B95.2 Enterococcus as the cause of diseases classified elsewhere; I83.029 Varicose veins of left lower extremity with ulcer of unspecified site; J84.10 Pulmonary fibrosis, unspecified; M15.9 Polyosteoarthritis, unspecified; Z66 Do not resuscitate; Z96.643 Presence of artificial hip joint, bilateral; Z80.9 Family history of malignant neoplasm, unspecified; Z87.01 Personal history of pneumonia (recurrent); Z79.899 Other long term (current) drug therapy; Z88.8 Allergy status to other drugs, medicaments and biological substances; Z91.018 Allergy to other foods; Z90.89 Acquired absence of other organs; Z82.49 Family history of ischemic heart disease and other diseases of the circulatory system; Z87.891 Personal history of nicotine dependence; Z91.19 Patient's noncompliance with other medical treatment and regimen
CPT/HCPCS: 36415; 71020; 80048; 80053; 81001; 82550; 82553; 82803; 83605; 83735; 83880; 84484; 85025; 85610; 85730; 87040; 87070; 87075; 87077; 87186; 87205; 93005; 93306; 94760; 96374; 96376; 99285